=== PATIENT | female | born 1970 | race Caucasian/White ===

== ENCOUNTER 2024-05-15 18:02 | Emergency (ER) | payer BC, SELFPAY ==
[2024-05-15 18:25] VITALS: BP 194/58; PULSE 59; RESP 20; TEMP 36.6; O2SAT 86
[2024-05-15 18:40] VITALS: RESP 20; O2SAT 97
--- NOTE | 2024-05-15 19:06 | ED.EYEPROB ---
HPI - Eye Problem General Chief complaint: Eye Problems Stated complaint: Fall Injury, Eye Pain Time Seen by Provider: 05/15/24 18:50 Source: patient, family and RN notes reviewed Mode of arrival: ambulatory Limitations: no limitations History of Present Illness HPI Narrative: Patient presents today complaining an injury to her left eye. She fell asleep sitting up in her bed this morning around 11:00 a.m., fell off her bed onto the floor. Her left eye struck her left hand on the ground giving her a black eye. Patient reports the left eye is a little blurry, but otherwise she is having no symptoms. Denies pain to the face RI, headache, dizziness, neck pain. History of COPD and states she typically wears oxygen occasionally at home, but always at night. Upon arrival her O2 on room air was 86% because she for got her oxygen. She was placed on nasal cannula at 2 L and her pulse ox came up to 97 %. Related Data Home Medications Medication Instructions Recorded Confirmed albuterol sulfate 90 mcg/actuation 2 puff inhalation QID PRN sob 05/15/24 05/15/24 aerosol inhaler atorvastatin 40 mg tablet 40 mg PO DAILY 05/15/24 05/15/24 bumetanide 2 mg tablet 2 mg PO DAILY 05/15/24 05/15/24 carvedilol 6.25 mg tablet 6.25 mg PO DAILY 05/15/24 05/15/24 folic acid 1 mg tablet 1 mg PO DAILY 05/15/24 05/15/24 levothyroxine 175 mcg tablet 175 mcg PO DAILY 05/15/24 05/15/24 (Synthroid) lisinopril 20 mg tablet 20 mg PO DAILY 05/15/24 05/15/24 metolazone 5 mg tablet 5 mg PO DAILY 05/15/24 05/15/24 Allergies Allergy/AdvReac Type Severity Reaction Status Date / Time azithromycin Allergy Unknown MOUTH Verified 05/15/24 18:04 PEELED codeine Allergy Unknown VOMITING Verified 05/15/24 18:04 Review of Systems Review of Systems: CONSTITUTIONAL: Denies body aches, fever, chills, or sweats. EYES: + left eye bruising, left orbit bruising, left eye with mild blurriness ENT: Denies rhinorrhea, congestion, sore throat, or otalgia. CARDIOVASCULAR: Denies chest pain, palpitations, or edema. RESPIRATORY: Denies cough or dyspnea. GASTROINTESTINAL: Denies abdominal pain, nausea, vomiting, or diarrhea. GENITOURINARY: Denies dysuria or hematuria. SKIN: Denies rash, itching, or wounds. MUSCULOSKELETAL: Denies back pain, joint pain, or myalgia. NEUROLOGIC: Denies headache, numbness, tingling, or weakness. PSYCH: Denies depression or anxiety. [facility] Past Medical History Medical History (Updated 05/15/24 @ 19:14 by Trista Ramesh, [employer], ) COPD (chronic obstructive pulmonary disease) Comments At time of signature, I have reviewed and agree with nursing past medical, surgical, social and family history unless otherwise noted. Please see nursing chart for further information. There is no relevant family history pertinent to the presenting complaint Exam Narrative: GENERAL: chronically ill-appearing, well-nourished, and in no acute distress. HEAD: Normocephalic, atraumatic. EYES: EOMI. PERRL. Left eye: Severe left subconjunctival hemorrhage. Dependent edema and ecchymosis below the left eye. No orbital tenderness. No nystagmus. ENT: Mucous membranes pink and moist. Nares clear. No rhinorrhea. TMs normal bilaterally. Throat normal. Uvula midline. NECK: Normal AROM. Supple. No lymphadenopathy. Neck nontender. CHEST: on O2 2LNC EXTREMITIES: Normal range of motion. No edema. SKIN: Warm, dry, no rash. Capillary refill normal. Normal skin turgor. NEURO: No focal deficits. Alert and oriented x3. Gait steady. PSYCH: Normal affect. No signs of depression or anxiety. Course Course Level of Care: Express Care Visit Vital Signs Vital signs: Vital Signs Temperature 98 F 05/15/24 18:25 Pulse Rate 59 L 05/15/24 18:25 Respiratory Rate 20 05/15/24 18:25 Blood Pressure 194/58 H 05/15/24 18:25 Pulse Oximetry 86 L 05/15/24 18:25 Oxygen Delivery Room Air 05/15/24 18:25 Temperature 98 F 05/15/24 18:25 Pulse R
== END 2024-05-15 19:14 | disposition short-term general hospital (02) ==
PROVIDERS: Emergency Provider Nurse Practitioner; PCP Family Medicine
DX: H11.32 Conjunctival hemorrhage, left eye (principal); S00.83XA Contusion of other part of head, initial encounter; W06.XXXA Fall from bed, initial encounter; J44.9 Chronic obstructive pulmonary disease, unspecified
CPT/HCPCS: 99212; G0463

== ENCOUNTER 2024-05-15 19:27 | Emergency (ER) | payer BC, SELFPAY ==
--- NOTE | ~2024-05-15 | CT_ITS ---
EXAMINATION: CT orbit BI wo con DATE: 05/15/2024 20:35 INDICATION: Fall . TECHNIQUE: Computed tomography (CT) of the orbital bones was performed without intravenous contrast. Automated exposure control and iterative reconstruction technique were employed. The dose-length prod uct was 214.18 mGy-cm. COMPARISON: None. FINDINGS: Soft Tissues: Left periorbital soft tissue swelling. Facial bones: No acute fracture. No lytic or blastic process. Eyes: The globes are intact. The soft tissue planes of the orbits are maintained. Paranasal Sinuses: Aerated secretions in the left maxillary sinus. The remaining visualized aerated spaces are clear. Foreign Bodies: No radiopaque foreign bodies. Other Findings: None. IMPRESSION: No evidence of acute orbital bone fracture or orbital trauma. Left maxillary sinus aerated secretions may represent acute sinusitis or minimal mucosal hemorrhage. Reviewed, dictated and finalized at [facility]. IMPRESSION: No evidence of acute orbital bone fracture or orbital trauma. Left maxillary sinus aerated secretions may represent acute sinusitis or minima l mucosal hemorrhage.
[2024-05-15 19:31] VITALS: BP 110/92; PULSE 64; RESP 18; TEMP 36.4; O2SAT 87
[2024-05-15 20:49] VITALS: BP 156/64; PULSE 61; RESP 15; O2SAT 92
--- NOTE | 2024-05-15 20:49 | ED.FALL ---
HPI - Fall General Chief Complaint: Fall Stated Complaint: fall, eye injury Time Seen by Provider: 05/15/24 20:11 History of Present Illness HPI Narrative: Patient is a 54-year-old female who presents to the emergency department this evening after being sent in from [facility] due to concern for left eye trauma. Patient fell asleep sitting in a seated position and accidentally fell forward and landed on her left wrist. Patient accidentally hit her left eye with her left hand held in a fisted position. Patient did present to the Urgent Care with a left black. She denies any pain with extraocular movements, denies any decrease in vision and denies any pain. She express care sent patient here for further evaluation including orbital CTs to rule out an orbital fracture. Patient denies any additional symptoms or concerns at this time. No blood thinner use. Related Data Home Medications Medication Instructions Recorded Confirmed albuterol sulfate 90 mcg/actuation 2 puff inhalation QID PRN sob 05/15/24 05/15/24 aerosol inhaler atorvastatin 40 mg tablet 40 mg PO DAILY 05/15/24 05/15/24 bumetanide 2 mg tablet 2 mg PO DAILY 05/15/24 05/15/24 carvedilol 6.25 mg tablet 6.25 mg PO DAILY 05/15/24 05/15/24 folic acid 1 mg tablet 1 mg PO DAILY 05/15/24 05/15/24 levothyroxine 175 mcg tablet 175 mcg PO DAILY 05/15/24 05/15/24 (Synthroid) lisinopril 20 mg tablet 20 mg PO DAILY 05/15/24 05/15/24 metolazone 5 mg tablet 5 mg PO DAILY 05/15/24 05/15/24 Allergies Allergy/AdvReac Type Severity Reaction Status Date / Time azithromycin Allergy Unknown MOUTH Verified 05/15/24 19:41 PEELED codeine Allergy Unknown VOMITING Verified 05/15/24 19:41 Review of Systems Review of Systems: All systems are reviewed and are negative unless stated otherwise in the HPI. [facility] Past Medical History Medical History COPD (chronic obstructive pulmonary disease) Exam Narrative: General: Alert, awake, afebrile, in no acute distress. HEENT: PERRL, no rhinorrhea, no post nasal drip, oropharynx clear, Bruising noted to the left orbital region with ecchymosis, chemosis noted along the lateral and inferior aspect of the left eye, intact extraocular movements without any pain or evidence of muscle entrapment, intact vision. Neck: Trachea midline, no JVD, no lymphadenopathy. Cardiovascular: Regular rate and rhythm, no murmurs, rubs or gallops, no peripheral edema. Respiratory: Clear to auscultation bilaterally, no tachypnea, no wheezing, no rhonchi, no rubs, no respiratory distress. Abdomen: Soft, nontender, nondistended, no rebound, no guarding, no peritoneal signs. Musculoskeletal: No joint swelling or deformity, normal muscle tone. Skin: No rashes or petechia, no signs of infection. Neurological: Alert and oriented to person, place, and time. Follows all commands. No focal deficits, speech is clear and fluent. Course Vital Signs Vital signs: Vital Signs Temperature 97.6 F 05/15/24 19:31 Pulse Rate 64 05/15/24 19:31 Respiratory Rate 18 05/15/24 19:31 Blood Pressure 110/92 H 05/15/24 19:31 Pulse Oximetry 87 L 05/15/24 19:31 Oxygen Delivery Room Air 05/15/24 19:31 Temperature 97.6 F 05/15/24 19:31 Pulse Rate 61 05/15/24 20:49 Respiratory Rate 15 05/15/24 20:49 Blood Pressure 156/64 H 05/15/24 20:49 Pulse Oximetry 92 05/15/24 20:49 Oxygen Delivery Room Air 05/15/24 19:31 MDM - Fall MDM Narrative Medical decision making narrative: The patient was evaluated by myself in the emergency department. History is obtained from patient who is an independent historian and physical exam was performed. External medical records were reviewed at this time. Imaging studies obtained included CT orbits without IV contrast which was independently interpreted by me revealing no acute process, CT did comment on a left maxillary sinus aerated secreti
[2024-05-15 21:07] VITALS: BP 154/72; PULSE 71; RESP 15; O2SAT 100
== END 2024-05-15 21:08 | disposition home or self-care (01) ==
LOC: ANHED 20:56
PROVIDERS: Emergency Provider Emergency Medicine; PCP Family Medicine
DX: S00.12XA Contusion of left eyelid and periocular area, initial encounter (principal); H11.32 Conjunctival hemorrhage, left eye; Z79.899 Other long term (current) drug therapy; J44.9 Chronic obstructive pulmonary disease, unspecified; W06.XXXA Fall from bed, initial encounter
CPT/HCPCS: 70480; 99284

== ENCOUNTER 2024-12-19 21:05 | Inpatient (IN) | payer BC, SELFPAY ==
--- NOTE | ~2024-12-19 | CT_ITS ---
EXAMINATION: CT BRAIN W/O DATE: 12/20/2024 01:59 INDICATION: Confusion. Evaluate for bleed. TECHNIQUE: Computed tomography (CT) of the head was performed without intravenous contrast. The dose- length product was 681.00 mGy-cm. Automated exposure control and iterative reconstruction technique w ere employed. COMPARISON: No prior studies for comparison. FINDINGS: Normal brain parenchymal volume for age. Normal weeks-white differentiation. No acute intrac ranial hemorrhage, infarction, mass or mass effect. No ventriculomegaly or midline shift. Midline sagittal images demonstrate a normal corpus callosum, c raniovertebral junction and sella turcica. Basilar cisterns are patent. Paranasal sinuses and mastoids are pneumatized. No depressed skull fractures. IMPRESSION: 1. No acute intracranial abnormality. Reviewed, dictated and finalized at location A. ING ASSOCIATE
--- NOTE | ~2024-12-19 | XR_ITS ---
EXAMINATION: XR chest 2V Exam Date/Time: 12/19/2024 22:05 SYSTEMS ANALYST ENGINEER HISTORY: cp SINCE 1600 Comparison: 12/21/2017. RESULT: Lines, tubes, and devices: None. Lungs and pleura: Mild peripheral reticular opacities and indistinct vessels. Hemidiaphragm flatteni ng as can be seen with emphysematous change. Cardiomediastinal silhouette: Stable cardiomegaly. Other: No acute osseous or upper abdominal finding. IMPRESSION: Mild interstitial edema. Reviewed, dictated and finalized at location K. EMS ANALYST ENGINEER IMPRESSION: Mild interstitial edema.
--- OUTSIDE RECORDS SUMMARY | 2024-12-19 21:07 | XMS_ITS | Data Portability ---
Author Organization [place] - [facility] OFFICE Address [address] [place] [address] Care Team Providers Care Unit Control Clerk Name Role Phone TAY TONG Primary Care Provider TAY TONG Referring Provider [phone] Assessment Encounter Date Assessment Date Assessment LastModified by Organization Details LastModified Time 11/02/2017 11/02/2017 Discussed with patient findings, diagnosis, and prognosis. Discussed evaluation and treatment options including risks and benefits with patient, and patient expressed understanding. The following interventions were recommended: heart healthy low-fat, low-sodium diet, avoid strenuous exercise pending completion of cardiovascular evaluation, 20 pound weight loss, monitor and record daily weight, continue current medications, and medical follow-up as noted. [email or web address] Not available 11/02/2017 10:56:00 12/21/2017 12/21/2017 Discussed with patient findings, diagnosis, and prognosis. Discussed evaluation and treatment options including risks and benefits with patient, and patient expressed understanding. The following interventions were recommended: heart healthy low-fat, low-sodium diet, continue regular exercise, 20 pound weight loss, monitor and record daily weight, continue current medications, and medical follow-up as noted. [email or web address] Not available 12/21/2017 15:19:32 Plan of Treatment Reminders Order Date Submit Date Provider Last Modified By Organization Details Last Modified Time Details Appointments None record ed. Lab None record ed. Referral None record ed. Procedures None record ed. Surgeries None record ed. Imaging None record ed. Medication Orders None record ed. Patient TargetsNo targets recorded. Patient Instructions Encounter Date Encounter Id Patient Instructions Last Modified By Organization Details Last Modified Time 11/02/2017 [id number] When You Want to Lose Weight: Care Instructions Not available 11/02/2017 11:46:23 deciding about using medicines to quit smoking Not available 11/02/2017 11:46:22 Quitting Tobacco : Care Instructions Not available 11/02/2017 11:46:22 elevated blood pressure: care instructions Not available 11/02/2017 11:46:22 hypothyroidism: care instructions Not available 11/02/2017 11:46:22 aortic valve regurgitation: care instructions Not available 11/02/2017 11:46:22 12/21/2017 [id number] When You Want to Lose Weight: Care Instructions [email or web address] Not available 12/21/2017 15:22:56 deciding about using medicines to quit smoking [email or web address] Not available 12/21/2017 15:22:57 Quitting Tobacco : Care Instructions [email or web address] Not available 12/21/2017 15:22:56 elevated blood pressure: care instructions Not available 12/21/2017 15:22:56 hypothyroidism: care instructions Not available 12/21/2017 15:22:56 aortic valve regurgitation: care instructions [email or web address] Not available 12/21/2017 15:22:56 Reason for Referral None Reported. Results Created Date Observation Date Name Description Value Unit Range Abnormal Flag Note LastModifiedBy Organization Detail LastModifiedTime 11/03/20 17 elect rocar diogr am No observ ation record ed. Not Available 2016 12:22:21 11/17/20 17 11/15/2017 US, echoc ardio gram, trans thora cic, compl ete, w/ color flow No observ ation record ed. [facility] [address], [place], [address], 11/29/2017 12:57:26 Result Notes None recorded. Problems Name Problem SNOMED Code Status Onset Date Resolution Date Notes Provider Name and Address Organization Details Recorded Time Hypothyroidism 84814310 Active 2016 JUSTO Hodge [facility] 7 10:41:30 Osteoarthritis 383384224 Active 2016 JUSTO Hodge [facility] 7 10:41:36 Vitamin D deficiency 19353051 Active 2016 Jeffrey knapp [facility] 7 10:43:27 History of tubal ligation 172542157 Active 2016 [facility] 7 10:44:00 Chronic sinusitis 73216510 Active 2016 [facility] 7 10:44:14 Solitary nodule of lung 781884935 Active 2016 [facility] 7 10:44:39 Fatigue 17727428 Active 2016 [facility] 7 11:27:36 History of multiple allergies 021183639 Active 2016 Eddyconcepción [facility] 7 11:28:14 Tobacco dependence syndrome 80419261 Active 2016 [facility] 7 10:43:43 Aortic valve regurgitation 43454039 Active 2016 [facility] 7 10:45:59 Increased blood pressure 29715135 Active 2016 [facility] 7 10:52:43 Obesity 973943563 Active 2016 Bandar knapp [facility] 7 10:53:16 Dyspnea on exertion 00655747 Active 2017 Bandar knapp [facility] 8 15:06:30 Problem Notes None recorded. Procedures Surgical History Date Name Laterality Status Provider Name and Address Organization Details Recorded Time Knee arthroscopy/sara ebenezer [facility] 10/26/2017 10:45:09 Unlisted px accessory sinus completed Murphy [facility] 10/26/2017 10:45:26 Anesth tubal ligation completed Murphy [facility] 10/26/2017 10:45:47 Imaging Results Imaging Date Name Status LastModified by Organization Details LastModified Time 11/03/2017 electrocardiogram completed Informa tion not available 11/03/2017 12:22:21 11/15/2017 US, echocardiogram, transthoracic, complete, w/ color flow completed [facility] [address], [place], [address], 11/29/2017 12:57:26 Procedure Notes None recorded. Medical Equipment None Reported. Allergies Allergen ID Allergen Name Allergen Category Reaction Reaction Severity Criticality Documentation Date Start Date Code Code System Note Provider Name and Address Organization Details Recorded Time 4 codeine medicatio n Not available Not available Not available 10/26/2017 2670 RxNorm Murphy Mesto null, [facility] 7 10:47:44 5555 acetamino phen / hydrocodo ne medicatio n Not available Not available Not available 10/26/2017 74269 2 RxNorm Murphy Mesto null, [facility] 7 10:47:53 5556 Zithromax medicatio n Not available Not available Not available 10/26/2017 62075 4 RxNorm Murphy Mesto null, [facility] 7 10:48:01 Medications Name Sig Start Date Stop Date Status Note LastModified by Organization Details LastModified Time amoxicilli n 500 mg capsule 11/02 completed Not Available Not Available Not Available prednisone 10 mg tablet Take every day by oral route. 11/02 completed Not Available Not Available Not Available doxycyclin e hyclate 100 mg capsule 12/21 completed no longer taking 018 ab Not Available Not Available Not Available ibuprofen 800 mg tablet Take 2 tablets as needed by oral route. active prn Not Available Not Available No t Available benzonatat e 200 mg capsule 12/21 completed no longer taking 018 ab Not Available Not Available Not Available Claritin 10 mg tablet Take 1 tablet every day by oral route. 2016 active Not Available Not Available Not Avai lable prednisone 20 mg tablet active Not Available Not Available Not Available Zithromax 250 mg tablet TAKE 2 TABLETS (500 MG) BY ORAL ROUTE ONCE DAILY FOR 1 DAY THEN 1 TABLET (250 MG) BY ORAL ROUTE ONCE DAILY FOR 4 DAYS 11/02 completed Not Available Not Available Not Available Synthroid 175 mcg tablet Take 1 tablet every day by oral route. active Not Available Not Available No t Available benzonatat e 100 mg capsule 11/02 completed Not Available Not Available Not Available montelukas t 10 mg tablet Take 1 tablet every day by oral route. active Not Available Not Available No t Available levofloxac in 500 mg tablet 12/21 completed no longer taking 018 ab Not Available Not Available Not Available ipratropiu m bromide 42 mcg (0.06 %) nasal spray 12/21 completed no longer taking 018 ab Not Available Not Available Not Available cefdinir 300 mg capsule active Not Available Not Available Not Available amoxicilli n 875 mg-potassi um clavulanat e 125 mg tablet 12/21 completed no longer taking 018 ab Not Available Not Available Not Available Mucinex 600 mg tablet, extended release Take 1 tablet every 12 hours by oral route. 11/02 completed Not Available Not Available Not Available amoxicilli n-potassiu m clavulanat e 1,000 mg-62.5 mg tablet,ext .rel 12hr 12/21 completed no longer taking 018 ab Not Available Not Available Not Available Vitals Date Recorded Body weight Body mass index (BMI) Body height Heart rate Oxygen saturation Oxygen saturation in Arterial blood by Pulse oximetry Systolic blood pressure Diastolic blood pressure Provider Name and Address Organization Details Last Updated DateTime 7 15775.2 7 g 33.9 kg/m2 163.83 cm 71 /min 94 % 94 % 142 mm[Hg] 70 mm[Hg] Albertina Krystian [facility] 7 10:09:01 Date Recorded Body height Body mass index (BMI) Body weight Heart rate Oxygen saturation Oxygen saturation in Arterial blood by Pulse oximetry Systolic blood pressure Diastolic blood pressure Provider Name and Address Organization Details Last Updated DateTime 8 163.83 cm 33.8 kg/m2 53884.4 7 g 72 /min 95 % 95 % 142 mm[Hg] 65 mm[Hg] Donita Valenzuela [facility] 8 14:18:46 Social History Question Answer Notes LastModified by Organizat ion Details LastModified Time Tobacco Smoking Status Current Every Day Smoker Not Available [facility] 09/22/2020 03:30:41 What Is Your Level Of Alcohol Consumption? None [id number] Information not available 09/22/2020 Which Illicit Or Recreational Drugs Have You Used? None [id number] Information not available 09/22/2020 Marital Status hi Wagner n not available 11/02/2017 What Was The Date Of Your Most Recent Tobacco Screening? 11/02/2017 [id number] Information not available 09/22/2020 How Many Years Have You Smoked Tobacco? 20 [id number] Information not available 09/22/2020 Sex: Unknown Functional Status None recorded. Mental Status None recorded. Family History Relationship Description Onset Age of this Age Resolved Age Notes LastModified by Organization Details LastModified Time Father Father [email or web address] Not available 2016 10:46:38 Notes:ppm, pancreatic cancer Medical History Condition Response Valvular Heart Disease Y Thyroid Disease Y Gynecological HistoryNo gynecological history recorded. Obstetrics History GPAL:G 0 P 0 0 0 0 Past Encounters Encounter ID Performer Location Encounter Start Date Encounter Closed Date Diagnosis/Indication Diagnosis SNOMED-CT Code Diagnosis ICD10 Code Diagnosis Note [id number] [facility] [address] [place] [address] 11/02/2017 09:47:32 11/06/2017 12:43:21 Hypothyroidism 51910298 E03.9 On Synthroid. Obtain FLP. Fatigue 48896437 R53.83 Obtain CBC, BMP, Mg, TSH. Has history of elevated wbc and prior bone marrow biopsy at [facility]. Consider stress test pending echo. Tobacco de pendence syndrome 35398912 F17.200 Cessation recommende d. Aortic jenny ve regurgitation 04054772 I35.1 Chronic. Obtain echo to evaluate for structural /functiona l disease, extent of AI. Obtain [facility] records from 10 years ago: LHC, NANCY, chemical stress test. Increased blood pressure 81369801 R03.0 Blood pressure is elevated today, but this is only one reading, will keep close follow up, and consider medication change if blood pressure is still elevated next visit. BP diary. Obesity 689706175 E66.9 20 lb. weight loss recommende d over the next 2 months. [facility] [address] [place] [address] 12/21/2017 14:05:43 12/21/2017 16:36:30 Aortic valve regurgitation 30834704 I35.1 Chronic. Moderate aortic regurgitat ion on echo 11/15/17. Had 11/15/17 ECHO: LV chamber size is normal. Mildly increased LV wall thickness. There is normal global systolic function and contractil ity. LVEF 50-55%. Impaired relaxation . Moderate aortic regurgitat ion. Obtain [facility] records from 10 years ago: LHC, NANCY, chemical stress test. Hypothyroidism 31775512 E03.9 On Synthroid. Obtain FLP. Fatigue 82359736 R53.83 Obtain CBC, BMP, Mg, TSH. Has history of elevated wbc and prior bone marrow biopsy at [facility]; follows with PCP. Tobacco de pendence syndrome 15045752 F17.200 Cessation recommende d. Increased blood pressure 38742153 R03.0 Blood pressure is elevated today and on prior visit but home BP well-contr olled; will keep close follow up, and consider medication change if blood pressure is still elevated next visit. BP diary. Validate home BP monitor in office. Obesity 597775860 E66.9 20 lb. weight loss recommende d over the next 2 months. Dyspnea on exertion 6084 5006 R06.09 Patient presents with exertional dyspnea which can be an anginal equivalent and fatigue in the months even before recent pneumonia. Given the history, exam findings and {{high* in termediate low}} cardiac risk factors, I {{feel* do not feel}} additional investigat ion is warranted. I have made arrangemen ts in the near future for {{an exercise stress echocardio gram to evaluate for any ischemia, structural heart disease, or exercise induced arrythmia an exercise stress nuclear test an exercise stress nuclear test (stress echo not possible due to COPD or obesity) a n exercise stress nuclear test and an echocardio gram to evaluate for any ischemia or structural heart disease a pharmacolo gic stress nuclear test due to reduced functional capacity or conduction abnormalit y* cardiac catheteriz ation an echocardio gram to evaluate left ventricula r function and any structural heart disease or valvular abnormalit y}}. Has knee OA limiting rapid walking. Wait until early January 2018 for complete resolution of recent pneumonia. The procedure was discussed with the patient, and risks, benefits, and alternativ e options were explained. {{ The patient was informed about heart catheteriz ation and interventi onal procedures and agrees to proceed.}} Appropriat e labwork {{has has not*}} been performed recently, therefore I {{have not have*} } made arrangemen ts for further testing. I have asked the patient to curtail exercise and activities until our investigat ion is complete. I have {{made no* made the following} } adjustment s to the present medical regimen. {{ Patient has been started on daily aspirin.}} {{ Patient has been given a prescripti on for sublingual nitroglyce rin.}} Health Concerns Section Related Observation LastModified by Organization Detai ls LastModified Time None Recorded Concern Status LastModified by Organization Details LastModified Time None Recorded Advance Directives Directive None Recorded Payers Encounter Date Sequence Insurance Name Policy Number Policy Bhandari Covered Member ID Bhandari Member ID Guarantor Name 11/02/2017 1 [place] [id number] Karlie Cody [id number] Karlie Cody 12/21/2017 1 [place] [id number] Karlie Cody [id number] Karlie Cody Notes Date Note Type Note Provider Name and Address Organization Details Recorded Time 11/02/2017 text/html 11/02/17 CC: Cardiac Evaluation 47 year-old white woman with h/o Aortic valvular regurgitation, current tobacco use (40 pack-year), hypothyroidism was referred for cardiac evaluation due to progressive heart murmur. No recent echo. No history of endocarditis. Pt reports she had cardiac testing at [facility] in [place] approximately 10 years ago, tests included a NANCY, Chemical Stress test, and a Cardiac Catherization. {{No history of previous myocardial infarction.* History of previous myocardial infarction reported.}} {{No history of heart failure.* History of heart failure reported.}} {{History of valvular heart disease reported: AI.# No known valvular heart disease. History of valvular heart disease reported.}} Pt reports she was told by at [facility] in [place], [place] she had an aortic valve disease. {{No known arrhythmia.* History of arrhythmia reported.}} {{Patient reports feeling well overall.* Patient reports not feeling well sometimes.}} {{Patient is active, but is not exercising regularly.* Patient is active, exercising regularly. Patient is not very active, and is not exercising.}} {{No chest pain.* Chest pain reported. Exertional chest pain reported. Non-exerti onal chest pain reported. Chest pain reported which is only sometimes associated with activity.}} {{No arm pain.* Arm pain reported.}} {{No neck pain.* Neck pain reported.}} {{No nausea and vomiting.* Nausea and vomiting reported.}} {{No diaphoresis.* Diapho resis reported.}} {{No shortness of breath at rest.* Shortness of breath at rest reported.}} {{Dyspnea on exertion reported with sinus infections.# No dyspnea on exertion. Dyspnea on exertion reported.}} {{No fatigue. Fatigue reported.*}}{{No orthopnea.* Orthopne a reported.}} {{No PND.* PND reported.}} {{No leg swelling.* Leg swelling reported.}} {{No palpitation. Palpita tion reported.*}} {{No dizziness.* Dizzines s reported.}} {{No syncope .* Syncope reported.}} {{No pre-syncope.* Pre-sy ncope reported.}} {{No claudication.* Monty ication reported.}} {{No major bleeding events.* Major bleeding event reported.}} {{No side effects from medications.* Side effects from medications reported.}} {{Complete ROS negative except as stated in the HPI. Complete ROS negative except as stated in the HPI and ROS.*}} Results from this visit, or from the past: EK11/02/[address] depression. + Negative precordial T waves. Nondiagnostic. Abnormal. Bandar knapp [place] [facility] 11/27/2017 08:39:18 12/21/2017 text/html 12/21/17 CC: Follow-up Cardiac Evaluation 47 year-old white woman with h/o aortic valvular regurgitation, current tobacco use (40 pack-year), hypothyroidism was referred for cardiac evaluation due to progressive heart murmur. Patient presents today for follow-up. Pt reports she has pneumonia for 3.5 weeks and is having a f/u chest x-ray today after this appointment. Patient was on antibiotics, prednisone and inhalers. Pt was to get FLP, did not obtain due to being ill with pneumonia. No history of endocarditis. Pt reports she had cardiac testing at [facility] in [place] approximately 10 years ago, tests included a NANCY, Chemical Stress test, and a Cardiac Catherization. {{No history of previous myocardial infarction.* History of previous myocardial infarction reported.}} {{No history of heart failure.* History of heart failure reported.}} {{History of valvular heart disease reported: AI.# No known valvular heart disease. History of valvular heart disease reported.}} Pt reports she was told by at [facility] in [place], [place] she had an aortic valve disease. {{No known arrhythmia.* History of arrhythmia reported.}} {{Patient reports feeling well overall. Patient reports not feeling well sometimes.*}} Pt recently has pneumonia, is feeling better than when she was diagnosed two weeks ago. {{Patient is active, but is not exercising regularly. Patient is active, exercising regularly. Patient is not very active, and is not exercising.*}} Since pneumonia diagnosis. 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 {{No chest pain.* Chest pain reported. Exertional chest pain reported. Non-exerti onal chest pain reported. Chest pain reported which is only sometimes associated with activity.}} {{No arm pain.* Arm pain reported.}} {{No neck pain.* Neck pain reported.}} {{No nausea and vomiting.* Nausea and vomiting reported.}} {{No diaphoresis.* Diapho resis reported.}} {{No shortness of breath at rest.* Shortness of breath at rest reported.}} {{No dyspnea on exertion. Dyspnea on exertion reported.*}} {{No fatigue. Fatigue reported.*}}{{No orthopnea.* Orthopne a reported.}} {{No PND.* PND reported.}} {{No leg swelling.* Leg swelling reported.}} {{No palpitation. Palpita tion reported.*}} {{No dizziness.* Dizzines s reported.}} {{No syncope .* Syncope reported.}} {{No pre-syncope.* Pre-sy ncope reported.}} {{No claudication.* Monty ication reported.}} {{No major bleeding events.* Major bleeding event reported.}} {{No side effects from medications.* Side effects from medications reported.}} {{Complete ROS negative except as stated in the HPI. Complete ROS negative except as stated in the HPI and ROS.*}} Had 11/15/17 ECHO: LV chamber size is normal. Mildly increased LV wall thickness. There is normal global systolic function and contractility. LVEF 50-55%. Impaired relaxation. Moderate aortic regurgitation. Had BP diary 110-125/ 70-80. Results from this visit, or from the past: EK11/02/[address] depression. + Negative precordial T waves. Nondiagnostic. Abnormal. 11/15/17 ECHO: LV chamber size is normal. Mildly increased LV wall thickness. There is normal global systolic function and contractility. LVEF 50-55%. Impaired relaxation. Moderate aortic regurgitation. Bandar knapp [place] [facility] 12/21/2017 15:23:19 OBGyn Episode No OBEpisode recorded.
--- OUTSIDE RECORDS SUMMARY | 2024-12-19 21:07 | XMS_ITS | Data Portability ---
Author Organization [facility] Address [address] [place] [address] Care Team Providers Care Assistant Chief Of Police Name Role Phone RIZWANA HERRING Primary Care Provider Unavailabl e Assessment No assessment recorded. Plan of Treatment Reminders Order Date Submit Date Provider Last Modified By Organization Details Last Modified Time Details Appointments None recorded . Lab CK (creatin e kinase) isoenzym es, serum 2023 024 [facility], [address], [place], [address], 4 11:38:10 erythroc yte sediment ation rate by alexanderr en method 2023 024 [facility], [address], [place], [address], 4 09:09:03 CBC w/ auto diff 2023 024 [facility], [address], [place], [address], 4 18:53:48 BMP, serum or plasma 2023 024 [facility], [address], [place], [address], 4 07:48:02 pro BNP (pro B-type natriure tic peptide) , serum or plasma 2023 024 [facility], [address], [place], [address], 4 11:34:49 BMP, serum or plasma 2023 024 [facility], [address], [place], [address], 4 09:15:56 pro BNP (pro B-type natriure tic peptide) , serum or plasma 2023 024 [email or web address] [facility], [address], [place], [address], 4 16:55:58 CBC w/ auto diff 2023 024 [email or web address] [facility], [address], [place], [address], 4 16:55:58 hepatic function panel, serum 2023 024 [email or web address] [facility], [address], [place], [address], 4 11:13:06 pro BNP (pro B-type natriure tic peptide) , serum or plasma 2023 024 [email or web address] [facility], [address], [place], [address], 4 12:48:50 CBC 2023 024 [id number] [facility], [address], [place], [address], 4 12:48:43 BMP, serum or plasma 2023 024 [facility], [address], [place], [address], 4 23:28:16 TSH + free T4, serum 2023 024 [facility], [address], [place], [address], 4 08:15:14 hepatic function panel, serum 2023 024 [id number] [facility], [address], [place], [address], 4 12:48:31 Referral cardiolo gist referral 2023 [place] [facility], [address], [address], [place], [address], 4 15:01:09 Procedures trans-th oracic echocard iogram (TTE) (PROC) 2023 [facility], [address], [address], [place], [address], 5 05:19:58 Surgeries None recorded . Imaging None recorded . Medication Orders rosuvast atin 20 mg tablet 2023 024 [id number], [address], [place], [place], [id number], 4 13:42:03 Lasix 40 mg tablet 2023 024 [id number], [address], [place], [id number], 4 13:40:47 mupiroci n 2 % topical ointment [address] [id number], [address], [place], [place], [id number], 4 13:37:20 gabapent in 100 mg capsule [address] [facility], [address] [place] [address], [place], [address], 4 15:18:41 carvedil ol 3.125 mg tablet [address] [facility], [address] [facility], [place], [address], 15:18:41 Patient TargetsNo targets recorded. 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 Total CK is below adequ ate level to accur ately fract ionat e. Not Available [address], [address], 07/08/2024 09:09:01 07/02/2007/08/2024 SODIU M sodium 130 mmol/ L 135-14 6 low Not Available [address], [address], 07/08/2024 09:09:02 07/02/2007/08/2024 SED RATE BY JENNIFER BUSTAMANTE sed rate by modified preston 2 mm/h < or = 30 normal Not Available [address], [address], 07/08/2024 09:09:03 07/19/20 24 07/19/2024 CBC (INCL UDES DIFF/ PLT) white blood cell count 12.3 thous and/u L 3.8-10 .8 high Not Available [facility] [address], [address], 07/19/2024 18:53:47 07/19/20 24 07/19/2024 CBC (INCL UDES DIFF/ PLT) red blood cell count 5.68 sheri on/uL 3.80-5 .10 high Not Available [facility] [address], [address], 07/19/2024 18:53:47 07/19/20 24 07/19/2024 CBC (INCL UDES DIFF/ PLT) hemoglobin 14.6 g/dL 11.7-1 5.5 normal Not Available [address], [address], 07/19/2024 18:53:47 07/19/20 24 07/19/2024 CBC (INCL UDES DIFF/ PLT) hematocrit 49.5 % 35.0-4 5.0 high Not Available [employer] [address], [address], 07/19/2024 18:53:47 07/19/20 24 07/19/2024 CBC (INCL UDES DIFF/ PLT) MCV 87.1 fL 80.0-1 00.0 normal Not Available [facility] [address], [address], 07/19/2024 18:53:47 07/19/20 24 07/19/2024 CBC (INCL UDES DIFF/ PLT) MCH 25.7 pg 27.0-3 3.0 low Not Available [facility] [address], [address], 07/19/2024 18:53:47 07/19/20 24 07/19/2024 CBC (INCL UDES DIFF/ PLT) MCHC 29.5 g/dL 32.0-3 6.0 low Not Available [address], [address], 07/19/2024 18:53:47 07/19/20 24 07/19/2024 CBC (INCL UDES DIFF/ PLT) RDW 14.1 % 11.0-1 5.0 normal Not Available [address], [address], 07/19/2024 18:53:47 07/19/20 24 07/19/2024 CBC (INCL UDES DIFF/ PLT) platelet count 320 thous and/u L 140-40 0 normal Not Available [facility] [address], [address], 07/19/2024 18:53:47 07/19/20 24 07/19/2024 CBC (INCL UDES DIFF/ PLT) MPV 9.5 fL 7.5-12 .5 normal Not Available [address], [address], 07/19/2024 18:53:47 07/19/20 24 07/19/2024 CBC (INCL UDES DIFF/ PLT) absolute neutrophils 8389 cells /uL 1500-7 800 high Not Available [address], [address], 07/19/2024 18:53:47 07/19/20 24 07/19/2024 CBC (INCL UDES DIFF/ PLT) absolute lymphocytes 2657 cells /uL 850-39 00 normal Not Available [facility] [address], [address], 07/19/2024 18:53:47 07/19/20 24 07/19/2024 CBC (INCL UDES DIFF/ PLT) absolute monocytes 836 cells /uL 200-95 0 normal Not Available [address], [address], 07/19/2024 18:53:47 07/19/20 24 07/19/2024 CBC (INCL UDES DIFF/ PLT) absolute eosinophils 332 cells /uL 15-500 normal Not Available [address], [address], 07/19/2024 18:53:47 07/19/20 24 07/19/2024 CBC (INCL UDES DIFF/ PLT) absolute basophils 86 cells /uL 0-200 normal Not Available [facility] [address], [address], 07/19/2024 18:53:47 07/19/20 24 07/19/2024 CBC (INCL UDES DIFF/ PLT) neutrophils 68.2 % normal Not Available [address], [address], 07/19/2024 18:53:47 07/19/20 24 07/19/2024 CBC (INCL UDES DIFF/ PLT) lymphocytes 21.6 % normal Not Available [facility] [address], [address], 07/19/2024 18:53:47 07/19/20 24 07/19/2024 CBC (INCL UDES DIFF/ PLT) monocytes 6.8 % normal Not Available [facility] [address], [address], 07/19/2024 18:53:47 07/19/20 24 07/19/2024 CBC (INCL UDES DIFF/ PLT) eosinophils 2.7 % normal Not Available [facility] [address], [address], 07/19/2024 18:53:47 07/19/20 24 07/19/2024 CBC (INCL UDES DIFF/ PLT) basophils 0.7 % normal Not Available [facility] [address] [address] [place], [address], 07/19/2024 18:53:47 07/19/20 24 07/20/2024 B TYPE NATRI URETI C PEPTI DE (BNP) B type natriuretic peptide (BNP) 375 pg/mL <100 high BNP level s incre ase with age in the gener al popul ation with the highe st value s seen in indiv idual s great er than 75 years of age. Refer ence: J. Am. Jonathon. Cardi ol. 2002; 40:97 6-[address] to have a dupli hayley copy faxed has been tim ram[place]: [phone] Not Available [facility] [address] [address] [place], [address], 07/20/2024 11:34:49 08/12/2008/13/2024 SODIU M sodium 115 mmol/ L 135-14 6 critical low Verif ied by repea t alena sis. Not Available [facility] [address] [place], [address], 08/13/2024 04:51:54 08/12/2008/13/2024 BASIC METAB OLIC PANEL glucose 146 mg/dL 65-99 high Fasti ng refer ence inter jenny For someo ne witho ut known diabe cole, a gluco se value >125 mg/dL indic ates that they may have diabe cole and this shoul d be confi rmed with a follo w-up test. Not Available [facility] [address] [address] [place], [address], 08/13/2024 07:48:02 08/12/2008/13/2024 BASIC METAB OLIC PANEL urea nitrogen (BUN) 32 mg/dL 7-25 high Not Available [facility] [address] [address] [place], [address], 08/13/2024 07:48:02 08/12/2008/13/2024 BASIC METAB OLIC PANEL creatinine 1.03 mg/dL 0.50-1 .03 normal Not Available [facility] [address] [place], [address], 08/13/2024 07:48:02 08/12/2008/13/2024 BASIC METAB OLIC PANEL eGFR 64 mL/mi n/1.7 3m2 > or = 60 normal Not Available [address], [address], 08/13/2024 07:48:02 08/12/2008/13/2024 BASIC METAB OLIC PANEL BUN/creatini ne ratio 31 (calc ) 6-22 high Not Available [address], [address], 08/13/2024 07:48:02 08/12/2008/13/2024 BASIC METAB OLIC PANEL sodium 118 mmol/ L 135-14 6 low Not Available [address], [address], 08/13/2024 07:48:02 08/12/2008/13/2024 BASIC METAB OLIC PANEL potassium 3.4 mmol/ L 3.5-5. 3 low Not Available [address], [address], 08/13/2024 07:48:02 08/12/2008/13/2024 BASIC METAB OLIC PANEL chloride <80 mmol/ L 98-110 low Not Available [address], [address], 08/13/2024 07:48:02 08/12/2008/13/2024 BASIC METAB OLIC PANEL carbon dioxide 42 mmol/ L 20-32 high Not Available [address], [address], 08/13/2024 07:48:02 08/12/2008/13/2024 BASIC METAB OLIC PANEL calcium 9.3 mg/dL 8.6-10 .[address] to have a BarBird hayley copy faxed has been tim romeroedg [place]: [phone] Not Available [facility] [address] [place], [address], 08/13/2024 07:48:02 10/30/20 24 10/30/2024 COMPL ETE BLOOD COUNT AUTO DIFF white blood count 9.6 x10e3 /uL 3.4-10 .8 normal Not Available [facility] ([facility]) [address], [place], [address], 10/30/2024 21:33:28 10/30/20 24 10/30/2024 COMPL ETE BLOOD COUNT AUTO DIFF red blood count 5.37 x10e6 /uL 3.77-5 .28 high Not Available [facility] ([facility]) [address], [place], [address], 10/30/2024 21:33:28 10/30/20 24 10/30/2024 COMPL ETE BLOOD COUNT AUTO DIFF hemoglobin 13.4 g/dL 11.1-1 5.9 normal Not Available [facility] ([facility]) [address], [place], [address], 10/30/2024 21:33:28 10/30/20 24 10/30/2024 COMPL ETE BLOOD COUNT AUTO DIFF hematocrit 43.8 % 34.0-4 6.6 normal Not Available [facility] ([facility]) [address], [place], [address], 10/30/2024 21:33:28 10/30/20 24 10/30/2024 COMPL ETE BLOOD COUNT AUTO DIFF mean corpuscular volume 82 fL 79-97 normal Not Available [facility] ([facility]) [address] [place], [address], 10/30/2024 21:33:28 10/30/20 24 10/30/2024 COMPL ETE BLOOD COUNT AUTO DIFF mean corpuscular hemoglobin 25.0 pg 26.6-3 3.0 low Not Available [facility] ([facility]) [address] [place], [address], 10/30/2024 21:33:28 10/30/20 24 10/30/2024 COMPL ETE BLOOD COUNT AUTO DIFF mean corpuscular HGB conc 30.6 g/dL 31.5-3 5.7 low Not Available [facility] (Lab) [address] [place], [address], 10/30/2024 21:33:28 10/30/20 24 10/30/2024 COMPL ETE BLOOD COUNT AUTO DIFF red cell distribution width 20.6 % 11.5-1 4.5 high Not Available [facility] (Lab) [address] [place], [address], 10/30/2024 21:33:28 10/30/20 24 10/30/2024 COMPL ETE BLOOD COUNT AUTO DIFF platelet count 279 x10e3 /uL 150-45 0 normal Not Available [facility] (Lab) [address] [place], [address], 10/30/2024 21:33:28 10/30/20 24 10/30/2024 COMPL ETE BLOOD COUNT AUTO DIFF mean platelet volume 10.0 fL 8.9-12 .7 normal Not Available [facility] ([facility]) [address] [facility], [place], [address], 10/30/2024 21:33:28 10/30/20 24 10/30/2024 COMPL ETE BLOOD COUNT AUTO DIFF immature granulocytes pct auto 0.4 % not estb. Not Available [facility] (Lab) [address] [place], [address], 10/30/2024 21:33:28 10/30/20 24 10/30/2024 COMPL ETE BLOOD COUNT AUTO DIFF neutrophils percent auto 69 % not estb. Not Available [facility] ([facility]) [address] [place], [address], 10/30/2024 21:33:28 10/30/20 24 10/30/2024 COMPL ETE BLOOD COUNT AUTO DIFF lymphocytes percent auto 21 % not estb. Not Available [facility] ([facility]) [address], [place], [address], 10/30/2024 21:33:28 10/30/20 24 10/30/2024 COMPL ETE BLOOD COUNT AUTO DIFF monocytes percent auto 7 % not estb. Not Available [facility] ([facility]) [address], [place], [address], 10/30/2024 21:33:28 10/30/20 24 10/30/2024 COMPL ETE BLOOD COUNT AUTO DIFF eosinophils percent auto 2 % not estb. Not Available [facility] ([facility]) [address], [place], [address], 10/30/2024 21:33:28 10/30/20 24 10/30/2024 COMPL ETE BLOOD COUNT AUTO DIFF basophils percent auto 0 % not estb. Not Available [facility] ([facility]) [address], [place], [address], 10/30/2024 21:33:28 10/30/20 24 10/30/2024 COMPL ETE BLOOD COUNT AUTO DIFF neutrophils absolute auto 6.7 x10e3 /uL 1.4-7. 0 normal Not Available [facility] ([facility]) [address], [place], [address], 10/30/2024 21:33:28 10/30/20 24 10/30/2024 COMPL ETE BLOOD COUNT AUTO DIFF immature granulocytes abs auto 0.0 x10e3 /uL 0.0-0. 1 normal Not Available [facility] ([facility]) [address], [place], [address], 10/30/2024 21:33:28 10/30/20 24 10/30/2024 COMPL ETE BLOOD COUNT AUTO DIFF lymphocytes absolute auto 2.1 x10e3 /uL 0.7-3. 1 normal Not Available [facility] ([facility]) [address] [place], [address], 10/30/2024 21:33:28 10/30/20 24 10/30/2024 COMPL ETE BLOOD COUNT AUTO DIFF monocytes absolute auto 0.7 x10e3 /uL 0.1-0. 9 normal Not Available [facility] ([facility]) [address], [place], [address], 10/30/2024 21:33:28 10/30/20 24 10/30/2024 COMPL ETE BLOOD COUNT AUTO DIFF eosinophils absolute auto 0.2 x10e3 /uL 0.0-0. 4 normal Not Available [facility] ([facility]) [address] [facility], [place], [address], 10/30/2024 21:33:28 10/30/20 24 10/30/2024 COMPL ETE BLOOD COUNT AUTO DIFF basophils absolute auto 0.0 x10e3 /uL 0.0-0. 2 normal Not Available [facility] ([facility]) [address] [facility], [place], [address], 10/30/2024 21:33:28 10/30/20 24 10/30/2024 COMPL ETE BLOOD COUNT AUTO DIFF nucleated red blood cells auto 0 % 0-0 normal Not Available [facility] ([facility]) [address] [facility], [place], [address], 10/30/2024 21:33:28 10/30/20 24 10/30/2024 SCAN platelet morphology comment Normal Not Available [facility] [address] [facility], [place], [address], 10/30/2024 22:26:15 10/30/20 24 10/30/2024 SCAN RBC morphology comment ABNORM AL normal abnormal Not Available [facility] ([facility]) [address] [place], [address], 10/30/2024 22:26:15 10/30/20 24 10/30/2024 SCAN anisocytosis 1+ not estb. Not Available [facility] ([facility]) [address] [facility], [place], [address], 10/30/2024 22:26:15 10/30/20 24 10/30/2024 HEPAT IC FUNCT ION PANEL bilirubin total 0.5 mg/dL 0.0-1. 2 normal Not Available [facility] (Lab) [address] [place], [address], 10/30/2024 23:28:16 10/30/20 24 10/30/2024 HEPAT IC FUNCT ION PANEL bilirubin direct <=0.20 mg/dL 0.00-0 .40 normal Not Available [facility] ([facility]) [address] [facility], [place], [address], 10/30/2024 23:28:16 10/30/20 24 10/30/2024 HEPAT IC FUNCT ION PANEL aspartate amino transferase 7 IU/L 0-40 normal Not Available [facility] (Lab) [address] [place], [address], 10/30/2024 23:28:16 10/30/20 24 10/30/2024 HEPAT IC FUNCT ION PANEL alanine aminotransfe rase <=5 IU/L 0-32 normal Not Available [facility] ([facility] [address] [place], [address], 10/30/2024 23:28:16 10/30/20 24 10/30/2024 HEPAT IC FUNCT ION PANEL total protein 6.5 g/dL 6.0-8. 5 normal Not Available [facility] (Lab) [address] [place], [address], 10/30/2024 23:28:16 10/30/20 24 10/30/2024 HEPAT IC FUNCT ION PANEL albumin level 3.7 g/dL 3.8-4. 9 low Not Available [facility] (Lab) [address] [place], [address], 10/30/2024 23:28:16 10/30/20 24 10/30/2024 HEPAT IC FUNCT ION PANEL alkaline phosphatase 117 IU/L 44-121 normal Not Available [facility] (Lab) [address] [place], [address], 10/30/2024 23:28:16 10/30/20 24 10/30/2024 BASIC METAB OLIC PANEL sodium 133 mmol/ L 134-14 4 low Not Available [facility] [address] [place], [address], 10/30/2024 23:28:16 10/30/20 24 10/30/2024 BASIC METAB OLIC PANEL potassium 3.9 mmol/ L 3.5-5. 2 normal Not Available [facility] ([facility]) [address] [place], [address], 10/30/2024 23:28:16 10/30/20 24 10/30/2024 BASIC METAB OLIC PANEL chloride 86 mmol/ L 96-106 low Not Available [facility] (Lab) [address] [place], [address], 10/30/2024 23:28:16 10/30/20 24 10/30/2024 BASIC METAB OLIC PANEL carbon dioxide 45 mmol/ L 20-29 critical high RESUL TS VERIF IED AND AHMADI D TO DR. HAROON Brasher BY ISAIAH SteenT AT 2222 ON 10/30. Not Available [facility] (Lab) [address] [facility], [place], [address], 10/30/2024 23:28:16 10/30/20 24 10/30/2024 BASIC METAB OLIC PANEL anion gap 6.0 mmol/ L Not Available [facility] (Lab) [address] [place], [address], 10/30/2024 23:28:16 10/30/20 24 10/30/2024 BASIC METAB OLIC PANEL blood urea nitrogen 14 mg/dL 6-24 normal Not Available [facility] ([facility]) [address] [place], [address], 10/30/2024 23:28:16 10/30/20 24 10/30/2024 BASIC METAB OLIC PANEL creatinine 0.79 mg/dL 0.76-1 .27 normal Not Available [facility] (Lab) [address] [place], [address], 10/30/2024 23:28:16 10/30/20 24 10/30/2024 BASIC METAB OLIC PANEL glomerular filtration rate 88 mL/mi n/1 Not Available [facility] (Lab) [address] [place], [address], 10/30/2024 23:28:16 10/30/20 24 10/30/2024 BASIC METAB OLIC PANEL BUN creatinine ratio 17 9-23 normal Not Available [facility] ([facility]) [address] [place], [address], 10/30/2024 23:28:16 10/30/20 24 10/30/2024 BASIC METAB OLIC PANEL glucose 129 mg/dL 70-99 high Not Available [facility] (Lab) [address] [place], [address], 10/30/2024 23:28:16 10/30/20 24 10/30/2024 BASIC METAB OLIC PANEL osmolality calculated 268 275-29 5 low Not Available [facility] (Lab) [address] [facility], [place], [address], 10/30/2024 23:28:16 10/30/20 24 10/30/2024 BASIC METAB OLIC PANEL calcium 9.4 mg/dL 8.7-10 .2 normal Not Available [facility] (Lab) [address] [place], [address], 10/30/2024 23:28:16 10/30/20 24 11/01/2024 TSH+F REE T4 TSH 8.630 uIU/m L 0.450- 4.500 abnormal Not Available [facility] (Lab) [address] [place], [address], 11/01/2024 08:15:14 10/30/20 24 11/01/2024 TSH+F REE T4 T4,free(dire ct) 1.48 NG/dL 0.82-1 .77 Perfo rmed at: 01 - [facility] n [address] [facility], [place] [address] 1268 Lab Direc tor: John alfonso PhD, Phone : [phone] Not Available [facility] (Lab) [address] [place], [address], 11/01/2024 08:15:14 10/30/20 24 11/01/2024 B-TYP E NATRI URETI C PEPTI DE B-type natriuretic peptide 431.6 pg/mL 0.0-10 0.0 abnormal Sieme ns ADVIA Centa ur XP metho dolog y Perfo rmed at: 01 - [facility] n [address] [facility], [place] [address] Lab Dire tor: John alfonso PhD, Phone : [phone] Not Available [facility] (Lab) [address] [place], [address], 11/01/2024 11:10:38 08/19/20 24 xr chest Pa or AP 1V [facility] [address] [place] [address] [facility] [place] [address] . [facility] [address] [place] [address] CLINIC AL HISTOR Y: Cough, histor y of CHF COMPAR GISELLA: None TECHNI QUE: AP Portab le View FINDIN GS: Lungs are clear. No pneumo thorax or pleura l effusi ons eviden t. There is cardio megaly . Medias tinal contou rs and pulmon esdras vessel s appear within normal limits . No acute osseou s abnorm ality. IMPRES APOLINAR: Cardio megaly . Referr ed By: Parviz mora Signed By: Carlton valdez on 11:27 PM Interp reted By: Carlton valdez, 11:26 PM [email or web address] [address], [place], [address], 08/19/2024 08:35:01 08/19/20 24 XR, chest [facility] [place] [address] [facility] [place] [address] [facility] [address] [place], [place] [id number] Examin ation: Chest 1 view portab le Histor y: Shortn ess of breath DATE/T SCOTTY: 3:11 PM Compar gisella: Techni que: AP semiup right portab le view of the chest was obtain ed. Findin gs: Mild cardio megaly . Mild pulmon esdras vascul ar conges tion. No pulmon esdras consol idatio n, pleura l effusi on or pneumo thorax . No acute osseou s abnorm ality. Impres apolinar: Cardio megaly and pulmon esdras vascul ar conges tion. Referr ed By: Electr onical ly Signed By: Rolf Pyle MD on 3:52 PM Interp reted By: Rolf Pyle MD, 3:49 PM [email or web address] [facility] [address] [facility], [place], [address], 08/19/2024 18:49:54 08/20/20 24 ECG 12-le ad [facility] [place] [address] [facility] [place] [address], [place] Test Date: 2023-11 Pat Name: ZENIA SY [facility] Depart ment: 40 Patien t ID: [id number] Room: [facility] Gender : Female Techni edda: : 0 3-30 Reques christina By: RAYMOND GARCIA Order Number : [id number] Desiree calderon MD: Ayden harp Measur ements Interv als Ava Rate: 62 P: 64 NH: 210 QRS: -35 QRSD: 101 T: 45 QT: 405 QTc: 412 Interp retive Statem ents SINUS RHYTHM WITH FIRST DEGREE AV BLOCK LEFT AXIS DEVIAT ION [QRS AXIS < -30] Poor R Wave Progre ssion Electr onical ly signed by Ayden harp at 15:24: 02 CDT [email or web address] [address], [place], [address], 08/20/2024 18:19:08 09/02/20 24 ECG 12-le ad [facility] [place] [address] [facility] [place] [address], [place] Test Date: 2023-11 Pat Name: ZENIA SY [facility] Depart ment: 39 Patien t ID: [id number] Room: INNH Gender : Female Techni edda: : 3-30 Reques christina By: YVES Navarro Order Number : [id number] Desiree calderon MD: Bandar Colby Measur ements Interv als Ava Rate: 65 P: 45 NH: 194 QRS: -32 QRSD: 98 T: 22 QT: 383 QTc: 401 Interp retive Statem ents SINUS RHYTHM Compar ed to ECG 2023 13:32: 18 Myocar dial infarc t findin g now presen t First degree AV block no longer presen t Poor R-wave progre ssion no longer presen t Other ischem ic change s, not STEMI Prelim inary EKG Interp retati on by Yves navarro, STAFF TOXICOLOGIST Electr onical ly signed by Bandar Colby at 2023 21:23: [address], [place], [address], 09/03/2024 16:04:06 09/02/20 24 ECG 12-le ad [facility] [place] [address] [facility] [place] [address] [place] Test Date: 2023-11 0 Pat Name: ZENIA SY RT Depart ment: 41 Patien t ID: [id number] Room: INPR Gender : Female Techni edda: : 3-30 Reques christina By: YVES Navarro Order Number : [id number] Desiree calderon MD: Bandar Colby Measur ements Interv als Ava Rate: 65 P: 45 NH: 194 QRS: -32 QRSD: 98 T: 22 QT: 383 QTc: 401 Interp retive Statem ents SINUS RHYTHM Compar ed to ECG 2023 13:32: 18 Myocar dial infarc t findin g now presen t First degree AV block no longer presen t Poor R-wave progre ssion no longer presen t Other ischem ic change s, not STEMI Prelim inary EKG Interp retati on by Yves navarro, STAFF TOXICOLOGIST Electr onical ly signed by Bandar Colby at 2023 21:23: 38 CDT [email or web address] [facility] 1 [facility], [place], [address], 09/03/2024 16:04:07 09/13/20 24 XR, chest [facility] [place] [address] [facility] [place] [facility] [address] [place] [address] EXAMIN ATION: X-ray chest HISTOR Y: Shortn ess of breath . Anxiet y. COMPAR GISELLA: Chest x-ray 024. TECHNI QUE: Portab le AP view chest. FINDIN GS: The heart is enlarg ed. No medias tinal shift. There is bilate ral inters titial promin ence sugges tive of vascul ar conges tion. Probab le trace bilate ral pleura l effusi ons. No eviden ce of pneumo tk or pneumo thorax . There are benign calcif ied nodule s and lymph nodes. There is athero sclero tic calcif icatio n of the aorta. IMPRES APOLINAR: Cardio megaly with vascul ar conges tion. Referr ed By: Electr onical ly Signed By: Rizwana Reeder DO on 2023 7:04 PM Interp reted By: Rizwana Reeder DO, 2023 7:03 PM [email or web address] [facility] [address] [facility] [facility] [address], [place], [address], 09/16/2024 18:14:00 09/14/20 24 ECG 12-le ad [facility] [address] [facility] [place] [address], [place] Test Date: 2023-11 Pat Name: ZENIA SY [facility] Depart ment: 41 Patien t ID: [id number] Room: [facility] Gender : Female Techni edda: : 3-30 Reques christina By: LEANNA HENRIQUEZ TON Order Number : [id number] Desiree calderon MD: Rosendo Amaro Measur ements Interv als Ava Rate: 66 P: 39 NH: 185 QRS: -35 QRSD: 95 T: 28 QT: 413 QTc: 433 Interp retive Statem ents SINUS RHYTHM MARKED LEFT AXIS DEVIAT ION [QRS AXIS < -30] MINIMA L VOLTAG E CRITER IA FOR LVH, CONSID ER NORMAL VARIAN T [MEETS CRITER IA IN ONE OF: R(aVL) , S(V1), R(V5), R(V5/V 6)+S(V 1)] POSSIB LE ANTERI OR MYOCAR DIAL INFARC TION [30 ms Q WAVE IN V3/V4, OR R < 0.2 mV IN V4], PROBAB LY OLD Compar ed to ECG 2023 19:09: 28 Left-a xis deviat ion now presen t Myocar dial infarc t janiyain g now presen t Electr onical ly signed by Rosendo Amaro at 2023 16:36: 38 [email or web address], [address], 09/16/2024 18:14:01 09/14/20 24 ECG 12-le ad [facility] [place] [address] [facility] [place] [address], [place] Test Date: 2023-11 0 Pat Name: ZENIA SY RT Depart ment: 41 Patien t ID: [id number] Room: [facility] Gender : Female Techni edda: : 3-30 Reques christina By: LEANNA HENRIQUEZ TON Order Number : [id number] Desiree calderon MD: Rosendo mAaro Measur ements Interv als Ava Rate: 66 P: 39 NH: 185 QRS: -35 QRSD: 95 T: 28 QT: 413 QTc: 433 Interp retive Statem ents SINUS RHYTHM MARKED LEFT AXIS DEVIAT ION [QRS AXIS < -30] MINIMA L VOLTAG E CRITER IA FOR LVH, CONSID ER NORMAL VARIAN T [MEETS CRITER IA IN ONE OF: R(aVL) , S(V1), R(V5), R(V5/V 6)+S(V 1)] POSSIB LE ANTERI OR MYOCAR DIAL INFARC TION [30 ms Q WAVE IN V3/V4, OR R < 0.2 mV IN V4], PROBAB LY OLD Compar ed to ECG 2023 19:09: 28 Left-a xis deviat ion now presen t Myocar dial infarc t findin g now presen t Electr onical ly signed by Rosendo Amaro at 2023 16:36: 38 CDT [email or web address] [facility] 1 [facility], [place], [address], 09/16/2024 18:14:01 10/21/20 24 XR, chest [facility] ONE [facility] [place] [address] [facility] [place] [facility] [address] [place], [place] [address] PATISONAM T NAME: ZENIA FRANKSFAUSTO RTH EXAM: Chest one view DATE OF EXAM: COMPAR GISELLA EXAM: 2023 INDICA TION: Edema, short of breath TECHNI QUE: AP chest FINDIN GS: There is cardia c megaly simila r to previo us study. Mild centra l pulmon esdras vascul ar conges tion and inters titial edema simila r to previo us study. No signif icant acute airspa ce consol idatio n. No pleura l effusi on. No hyperi nflati on. IMPRES APOLINAR: 1. CARDIO MEGALY WITH MILD CENTRA L PULMON ESDRAS VASCUL AR CONGES TION AND INTERS TITIAL EDEMA SIMILA R TO PREVIO US STUDY. Signed : Everardo castellon MD Referr ed By: Parviz kent ly Signed By: Everardo castellon MD on 8:10 PM Interp reted By: Everardo castellon MD, 8:09 PM [facility] 1 [facility], [place], [address], 10/22/2024 08:16:12 10/23/20 24 ECG 12-le ad [facility] [place] [address] [facility] [address] [place] [address] [place] Test Date: 2023-11 Pat Name: ZENIA SY RTH Depart ment: 41 Patien t ID: [id number] Room: EXAM13 Gender : Female Techni edda: [id number] : 3-30 Reques christina By: TERRENCE CARTWRIGHT Order Number : [id number] Desiree calderon MD: Gunnar Banerjee Measur ements Interv als Ava Rate: 66 P: 21 NH: 188 QRS: -24 QRSD: 97 T: 61 QT: 381 QTc: 400 Interp retive Statem ents SINUS RHYTHM POSSIB LE ANTERI OR MYOCAR DIAL INFARC TION , PROBAB LY OLD [30 ms Q WAVE IN V3/V4, OR R < 0.2 mV IN V4] Compar ed to ECG 2023 19:11: 03 Left-a xis deviat ion no longer presen t Myocar dial infarc t findin g still presen t Electr onical ly signed by Gunnar Banerjee at 6:11:4 5 ROOFING MACHINE OPERATOR [email or web address] [facility] 1 [facility], [place], [address], 10/23/2024 08:15:34 10/23/20 24 ECG 12-le ad [facility] ONE [facility] [place] [place] [address] [facility] [place] [address] [place] [place] Test Date: 2023-11 Pat Name: ZENIA SY [facility] Depart ment: 41 Patien t ID: [id number] Room: [facility] Gender : Female Techni edda: [id number] : 1969-0 3-30 Reques christina By: TERRENCE CARTWRIGHT Order Number : [id number] Desiree calderon MD: Gunnar Banerjee Measur ements Interv als Ava Rate: 66 P: 21 NH: 188 QRS: -24 QRSD: 97 T: 61 QT: 381 QTc: 400 Interp retive Statem ents SINUS RHYTHM POSSIB LE ANTERI OR MYOCAR DIAL INFARC TION , PROBAB LY OLD [30 ms Q WAVE IN V3/V4, OR R < 0.2 mV IN V4] Compar ed to ECG 2023 19:11: 03 Left-a xis deviat ion no longer presen t Myocar dial infarc t findin g still presen t Electr onical ly signed by Gunnar Banerjee at 12-4-2 024 6:11:4 5 ROOFING MACHINE OPERATOR [email or web address] [facility] [address] [facility] [facility], [place], [address], 10/23/2024 08:15:35 11/05/20 24 08/31/2022 US, echoc ardio gram, trans thora cic, compl ete, w/ color flow No observ ation record ed. BARCODE Not Available 2023 17:43:04 11/05/20 24 12/16/2022 nuvia can cardi olite stres s test (PROC ) No observ ation record ed. BARCODE Not Available 2023 17:43:04 11/05/20 24 02/07/2023 imagi ng/di agnos tic resul t No observ ation record ed. BARCODE Not Available 2023 17:43:04 11/05/20 24 08/22/2023 US, echoc ardio gram, trans thora cic, compl ete, w/ color flow No observ ation record ed. BARCODE Not Available 2023 17:43:04 11/05/20 24 10/21/2024 elect rocar diogr am No observ ation record ed. BARCODE Not Available 2023 17:43:04 12/01/19 25 XR, chest [facility] [place] [address] [facility] [place] [facility] [address] [place], [place] [address] Examin ation: Chest 1 view portab le Histor y: Pain DATE/T SCOTTY: 025 6:51 PM Compar gisella: Decemb er 2023 Techni que: AP uprigh t portab le view of the chest was obtain ed. Findin gs: Cardia l megaly . Mild pulmon esdras vascul ar conges tion. No pulmon esdras consol idatio n, pleura l effusi on or pneumo thorax . Mild linear left basila r atelec tasis. No acute osseou s abnorm ality. Impres apolinar: Cardio megaly and pulmon esdras vascul ar conges tion. Referr ed By: Electr onical ly Signed By: Rolf Pyle MD on 7:15 PM Interp reted By: Rolf Pyle MD, 7:15 PM [email or web address] [facility] 1 [facility], [place], [address], 12/02/2024 08:49:20 12/02/19 25 ECG 12-le ad [facility] ONE [facility] [place] [address] [facility] [place] [address] [facility] [address] [facility] Test Date: 12-01 Pat Name: ZENIA SY [facility] Depart ment: 41 Patien t ID: [id number] Room: [facility] Gender : Female Techni edda: [id number] : 3-30 Reques christina By: YASH Castellon Order Number : [id number] Desiree calderon MD: Ayden harp Measur ements Interv als Ava Rate: 62 P: 59 NH: 205 QRS: -32 QRSD: 114 T: 74 QT: 464 QTc: 472 Interp retive Statem ents SINUS RHYTHM LEFT AXIS DEVIAT ION [QRS AXIS < -30] Poor R Wave Progre ssion Compar ed to ECG 2023 19:48: 49 Left-a xis deviat ion now presen t Electr onical ly signed by Ayden harp at 9:35:5 5 ROOFING MACHINE OPERATOR [email or web address] [facility] 1 [facility], [place], [address], 12/02/2024 11:03:58 12/02/19 25 ECG 12-le ad [facility] ONE [facility] [place] [address] [facility] [place] [address] [facility] [address] [place] Test Date: 1-12 Pat Name: ZENIA SY RTH Depart ment: 41 So [place] ID: [id number] Room: A501 Gender : Female Techni edda: [id number] : 3-30 Reques christina By: YASH Castellon Order Number : [id number] Desiree calderon MD: Ayden harp Measur ements Interv als Ava Rate: 62 P: 59 NH: 205 QRS: -32 QRSD: 114 T: 74 QT: 464 QTc: 472 Interp retive Statem ents SINUS RHYTHM LEFT AXIS DEVIAT ION [QRS AXIS < -30] Poor R Wave Progre ssion Compar ed to ECG 2023 19:48: 49 Left-a xis deviat ion now presen t Electr onical ly signed by Ayden harp at 9:35:5 5 ROOFING MACHINE OPERATOR [email or web address] [facility] 1 [facility], [place], [address], 12/02/2024 11:03:58 12/02/19 25 xr ABD KUB [facility] [place] [address] [facility] [place] [facility] . [facility] [address] [place], [place] [address] ROSHAN FINN S: XR ABD KUB DATE: 2:17 PM HISTOR Y: abdomi nal disten tion 54-yea r-old female . Abdomi nal disten tion and pain. Curren t inpati ent. Patien t is report edly 5 feet 5 inches , 230 pounds , and BMI 38.3 on 025. COMPAR GISELLA: Chest portab le . DISCUS APOLINAR: Patien t report edly could not lay down and theref ore uprigh t views of the abdome n and pelvis were obtain ed on 3 images . Examin ation is limite d due to large body habitu s. Additi onally , there is breath ing motion on views of the mid to upper abdome n. Mildly air disten ded bowel loops in the left upper abdome n, minima l air disten tion of mid abdomi nal bowel loops, and no apprec iable air disten tion of pelvic bowel loops. IMPRES APOLINAR: Limite d abdomi nal radiog raphs with greate st air disten tion of bowel loops in the left upper quadra nt. Consid er CT for evalua tion if clinic [facility] shah Ordere d By: GENI ARRIETA Electr onical ly Signed By: Nicole Morse on 3:39 PM Interp reted By: Nicole Morse , 3:19 PM [facility] 1 [facility], [place], [address], 12/02/2024 18:40:20 12/02/19 25 use echoc ardio gram [facility] [place] [address] Echoca rdiogr aphy Report Pat.Na me: ZENIA OKEEFE Pat.ID : [id number] .Jhonny e: Refer. MD: michelle Krishnamurthy Exam Time: 10:24: 00 AM Study Type:E CHO WITH CARDIA C DOPPLE R COMP Height : 77 in Weight : 230 lb BSA: 2.37 m2 Age: [birth year]54 Y Sex: F HR: 60 bpm Sonogr phr: Katya Acevedo RDCS Pat. Stat.: Inpati ent Room: 501 Reason for Study: CHF Proced ures: 2D, M-mode , Dopple r, Color Flow, The study qualit y is techni edgardo adequa te. Race: W ++++++ ++++++ ++++++ ++++++ ++++++ ++++++ SUMMAR Y: ++++++ ++++++ ++++++ ++++++ ++++++ ++++++ The left ventri cular size is mildly enlarg ed. Estima christina left ventri cular ejecti on fracti on is 55-60% . Mild to modera te concen tric left ventri cular hypert rophy. Left ventri cular diasto lic functi on is abnorm al. Wall motion appear s normal in all segmen ts. The right ventri cular size is mild to modera tely enlarg ed. Right ventri cular systol ic functi on is normal . Modera te aortic regurg itatio n. ++++++ ++++++ ++++++ ++++++ ++++++ ++++++ FINDIN GS: ++++++ ++++++ ++++++ ++++++ ++++++ ++++++ LV: The left ventri cular size is mildly enlarg ed. Estima christina left ventri cular ejecti on fracti on is 55-60% . Mild to modera te concen tric left ventri cular hypert rophy. Left ventri cular diasto lic functi on is abnorm al. WM: Wall motion appear s normal in all segmen ts. RV: The right ventri cular size is mild to modera tely enlarg ed. Right ventri cular systol ic functi on is normal . IVS: No eviden ce of ventri cular septal defect . Abnorm al septal motion is noted. LA: The left atrial size is normal . The left atrial volume is normal ( less than 34 ml/M2) . RA: Right atrial size is normal . IAS: Atrial septum appear s intact . JULIEN: No eviden ce of perica rdial effusi on. AO: Normal aortic root. PA: Estima christina right atrial pressu re of 15 mmHg. SVn: Inferi or vena cava is severe ly enlarg ed. Inferi or vena cava shows <50% collap se with respir ation consis tent with elevat ed right atrial pressu re. System ic veins not well visual ized. AV: No eviden ce of aortic valve stenos is. Modera te aortic regurg itatio n. MV: Trace mitral regurg itatio n. No eviden ce of mitral valve stenos is. 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 PV: Trace pulmon ic regurg itatio n. No eviden ce of pulmon ic valve stenos is. TV: Modera te tricus pid regurg itatio n. Right ventri cular systol ic pressu re is 47 mmHg. No eviden ce of tricus pid valve stenos is. 2024 09:35 PM Rosendo Amaro M.D. [facility] 1 [facility], [place], [address], 12/03/2024 08:30:28 12/06/19 25 US, abdom en, limit ed [facility] [address] [facility] [place] [facility] [address] [place] [address] Exam: Abdomi nal ultras ound ascite s check Access ion: [id number] Exam Date/T scotty: 12:51 PM Clinic al indica tion: 54 female . Report ed enlarg ed right abdome n. Evalua tion for ascite s. Compar gisella: None Techni que: Ultras ound of the 4 abdomi nal quadra nts was perfor med to assess for the presen ce of ascite s. FINDIN GS: There is small volume ascite s. There is trace perihe patic fluid. Small pocket s of fluid presen t in left upper and lower quadra nts. Larges t fluid pocket is in the right lower quadra nt with a fluid depth of 11 cm. =====I MPRESS ION:== === Small volume ascite s with the larges t right lower quadra nt fluid pocket depth of 11 cm. Ordere d By: MACIEL Jj onical ly Signed By: Alejandra Willis MD on 025 2:06 PM Interp reted By: Alejandra Willis MD, 025 2:04 PM [facility] [address], [place], [address], 12/06/2024 15:13:58 12/07/[address] chest +ABD+ pel W con [facility] ONE [facility] [place] [address] [facility] [place] [facility] . [facility] [address] [place] [address] EXAMIN ATION: CT chest, abdome n and pelvis with contra st ACCESS ION: [id number] EXAM DATE/T SCOTTY: 1:15 PM REASON FOR EXAM: Abdomi nal disten tion, abnorm al findin gs on abd US; acute/ chroni c resp failur e COMPAR GISELLA: Prior ultras ound images . TECHNI QUE: Axial CT obtain ed of the chest, abdome n and pelvis with contra st, 100 mL Isovue -370. Multip lanar recons tructi ons are perfor med. Automa christina exposu re contro l was utiliz ed for dose reduct ion. FINDIN GS: Medias tinal window s: Mild cardio megaly . Minima l perica rdial fluid. Mild mendoza ry artery calcif icatio ns. Mild aortic valve calcif icatio ns. Athero sclero tic aorta and great vessel s. Additi onal scatte red bilate ral calcif icatio ns elsewh ere. Nodula rity of the left anteri or medias tinum, left thorac ic inlet and left suprac lavicu lar region could be mild adenop athy or varice s, not well charac terize d. Suspec christina left suprac lavicu lar conflu ent lymph nodes measur ing 2.3 x 1.1 cm (image 9). Left thorac ic inlet interm ediate densit y tissue measur ing 2.6 x 1.4 cm (image 13). Left thyroi d nodule measur ing approx imatel y 1.7 cm. Right thyroi d lobe is marked ly atroph ic. Trache a and esopha fede are unrema rkable . Lung window s: Modera te emphys kathy, most severe in the upper lobes. Patchy atelec tasis in the lung bases. Lung detail is obscur ed by motion artifa ct. No suspic ious infilt rate or pleura l effusi on. Lung detail is obscur ed by motion and atelec tasis. Left upper lobe pulmon esdras nodule measur es 5 mm. (Image 56). A few tiny nodula r foci elsewh ere are obscur ed. Abdome n findin gs: Modera te to large ascite s greate st in the lower abdome n and pelvis . Hepato megaly with hetero geneou s echote xture of the liver. Liver contou r nodula rity sugges ting hepato cellul ar diseas e/cirr hosis. No discre te liver mass is demons trated on this exam. Gallbl adder is nondis tended with tiny gallst ones depend ently. Spleni c granul omatou s calcif icatio ns. Pancre as and adrena l glands are unrema rkable . Kidney s are somewh at atroph ic with mild renal cortic al thinni ng bilate rally. IVC is somewh at disten ded, likely elevat ed centra l venous pressu res. Athero sclero tic aorta and branch ing vessel s. Mild retrop eriton eal shotty adenop athy. Large and small bowel are grossl y unrema rkable . Mild retain ed stool, within physio logic limits . Pelvis : Bladde r is decomp ressed with Tom cathet er in place. Some air in the bladde r relate d to cathet er placem ent. Uterus , ovarie s and rectum are grossl y unrema rkable . Ascite s as above. Extens aleja bilate ral vascul ar calcif icatio ns. Modera te bilate ral pelvic and inguin al lympha denopa thy. Some degree of pelvic floor relaxa tion noted. Other findin gs: Marked diffus e body wall soft tissue edema in the lower abdome n, pelvis and thighs compat ible with anasar ca. Diffus e degene rative change s are noted. No acute fractu re or destru ctive bone lesion . Benign morteza ioma in the lower thorac ic spine, T11 level. ===== IMPRES APOLINAR:= ==== 1. Enlarg ed hetero geneou s liver with nodula r contou r. Findin gs sugges t hepato cellul ar diseas e, liver failur e and develo ping cirrho sis. 2. Modera te to large ascite s. 3. Body wall soft tissue edema/ anasar ca. 4. Cholel ithias is. 5. Retrop eriton eal, pelvic and inguin al lympha denopa thy is indete rminat e. Furthe r workup recomm ended with either short interv al follow -up to assure resolu tion or PET/CT correl ation. 6. Nodula rity of the left upper medias tinum and suprac lavicu lar region , possib le venous or lympha tic varice s versus adenop athy. This may be reasse ssed upon short interv al follow -up. 7. Cardio megaly with mild mendoza ry artery calcif icatio ns. 8. Left upper lobe 5 mm pulmon esdras nodule may be reasse ssed upon follow -up. 9. Emphys kathy. 10. Left thyroi d nodule . Outpat ient thyroi d ultras ound recomm ended. Referr ed By: Parviz onical ly Signed By: Luis Titus MD on 025 3:05 PM Interp reted By: Luis Titus MD, 025 2:36 PM [email or web address] [facility] 1 [facility], [place], [address], 12/09/2024 17:31:29 12/09/19 25 US gd parac ent W imagi ng [facility] [place] [address] [facility] [place] [facility] [address] [place] [address] Examin ation: Ultras ound-g uided parace ntesis with imagin g Access ion: [id number] Exam date/t scotty: 025 1:10 PM Reason For Exam: 54 female presen ting for diagno stic and therap eutic first parace ntesis . Abdomi nal disten tion with ascite s seen on imagin g. Abnorm al liver morpho logy of imagin g with other chroni c medica l issues . Compar gisella: CT chest abdome n pelvis 025 Techni que: Inform ed verbal and writte n consen t was obtain ed from the patien t/catherine ent's medica l decisi on maker caregi mayank. The detail s of proced ure were discus sed, includ ing all applic able risks, benefi ts and altern atives . Patien t expres sed unders tandin g and wished to procee d. Initia l survey ultras ound perfor med docume nting the presen ce of modera te ascite s. A timeou t was perfor med. A left lower quadra nt skin access site was chosen with ultras ound guidan ce, and preppe d and draped . Steril e ultras ound techni que, includ ing hand wash with soap and water, was employ ed for the proced ure.1% lidoca ine was admini stered for local anesth esia and the skin and deeper soft tissue s down to the perito neum. A small skin incisi on was made throug h which a 6 Armenian Yueh one-st ep cathet er was advanc ed under ultras ound guidan ce throug h the abdomi nal wall into the perito juanita cavity . Fluid was return ed. The inner stylet was remove d and the cathet er attach ed to tubing attach ed to serial vacuum contai ners via a three- way stopco ck, allowi ng withdr awal of clear straw- colore d ascite s. Once aspira tion stoppe d, the cathet er was remove d. Compre ssion was applie d and hemost asis obtain ed and a steril e dressi ng placed . The patien t tolera christina the proced ure well with no immedi ate compli cation . Findin gs: Modera te ascite s. There is uneven tful remova l of 3.55 liters of fluid from the perito juanita cavity with trace no draina ble residu al ascite s remain ing by ultras ound post proced ure. =====I MPRESS ION:== === 1. Modera te ascite s 2. Proced ure note for left lower quadra nt approa ch parace ntesis perfor med with ultras ound choco ce. 3. 3.55 L of fluid remove d. 4. No albumi n IV placem ent to follow per protoc ol. 5. No immedi ate compli cation . Ordere d By: MACIEL ALANIZ Electr onical ly Signed By: Alejandra Willis MD on 025 2:26 PM Interp reted By: Alejandra Willis MD, 025 1:[email or web address] [place] [address] 1 [facility], [place], [address], 12/09/2024 17:31:29 Result Notes None recorded. Problems Name Problem SNOMED Code Status Onset Date Resolution Date Notes Provider Name and Address Organization Details Recorded Time Hypothyroidism 62989667 Active 2023 Rizwana Herring DO Attn: Josep calderon,[address] [place], [address], [place] [facility] 4 20:22:54 Steatosis of liver 533620927 Active 2023 Rizwana Herring DO Attn: Josep calderon,[address] [place], [address], [place] [facility] 4 20:22:55 Aortic valve stenosis 50237980 Active 2023 Rizwana Herring DO Attn: Josep calderon,[address] [place], [address], [place] 4 20:22:56 Obesity 378481590 Active 2023 Rizwana Herring DO Attn: Josep calderon,[address] [place], [address], [place] [facility] 4 20:22:58 Smoker 32905328 Active 2023 Rizwana Herring DO Attn: Jaspermuarice calderon,[address] [facility], [place], [address], [place] [facility] 4 20:22:59 Vitamin D deficiency 42129346 Active 2023 Rizwana Herring DO Attn: Jaspermaurice calderon,[address] [facility], [place], [address], [place] [facility] 4 20:23:01 Cardiomyopathy 18307611 Active 2023 Rizwana Herring DO Attn: Jaspermaurice calderon,[address] [facility], [place], [address], [place] [facility] 4 20:23:02 Coronary arterioscleros is 28312811 Active 2023 Rizwana Herring DO Attn: Jaspermaurice calderon,[address] [facility], [place], [address], [place] [facility] 4 20:23:03 Peripheral vascular disease 774417883 Active 2023 Rizwana Herring DO Attn: Jaspermaurice calderon,[address] [facility], [place], [address], [place] [facility] 4 20:23:05 Nodule of lung 038848800 Active 2023 Rizwana Herring DO Attn: Jaspermaurice calderon,[address] [facility], [place], [address], [place] [facility] 4 20:23:07 Hyperglycemia 00761613 Active 2023 Rizwana Herring DO Attn: Josep yumiko,[address] [facility], [place], [address], [place] [facility] 4 20:23:08 Hyperlipidemia 24649507 Active 2023 Rizwana Herring DO Attn: Josep yumiko,[address] [facility], [place], [address], [place] [facility] 4 20:23:09 Essential hypertension 01086369 Active 2023 Rizwana Herring DO Attn: Jaspermaurice calderon,[address] [place], [place], [address] [place] [address] 2, [place] [facility] 4 20:23:11 Cobalamin deficiency 622101980 Active 2023 Rizwana Herring DO Attn: Jaspermaurice calderon,[address] [place], [address] [place] [address], [place] [facility] 4 20:23:13 Gastroesophage al reflux disease without esophagitis 582937844 Active 2023 Rizwana Herring DO Attn: Josep calderon,[address] [place], [place], [address] [place] [address] 2, [place] [facility] 4 20:23:13 Chronic constipation 178463383 Active 2023 Rizwana Herring DO Attn: Jaspermaurice calderon,[address] [place], [place], [address] [place] [address], [place] [facility] 4 15:55:01 Seasonal allergy 751251778 Active 2023 Rizwana Herring DO Attn: Josep calderon,[address] [place], [place], [address] [place] [address] 2, [place] [facility] 4 15:59:35 Post-discharge follow-up 019080042 Active 2023 Rizwana Herring DO Attn: Jaspermaurice calderon,[address] [place], [place], [address] [place] [address] 2, [place] [facility] 4 19:23:52 Altered mental status 049535166 Active 2023 Rizwana Herring DO Attn: Jaspermaurice calderon,[address] [place], [address] [place] [address] 2, [place] [facility] 4 19:23:53 Problem Notes None recorded. Procedures Surgical History Date Name Laterality Status Provider Name and Address Organization Details Recorded Time Knee Surgery completed Lizett harden [place] [facility] 03/25/2024 15:29:09 Tubal Ligation completed Lizett elias [place] [facility] 03/25/2024 15:29:28 Imaging Results Imaging Date Name Status LastModified by Organization Details LastModified Time 08/19/2024 xr chest Pa or AP 1V completed [email or web address] [place] [address], [place], [address], 08/19/2024 08:35:01 08/19/2024 XR, chest completed [email or web address], [place], [address], 08/19/2024 18:49:54 08/20/2024 ECG 12-lead completed [email or web address], [place], [address], 08/20/2024 18:19:08 09/02/2024 ECG 12-lead completed [email or web address], [place], [address], 09/03/2024 16:04:06 09/02/2024 ECG 12-lead completed [email or web address], [place], [address], 09/03/2024 16:04:07 09/13/2024 XR, chest completed [email or web address], [place], [address], 09/16/2024 18:14:00 09/14/2024 ECG 12-lead completed [email or web address], [place], [address], 09/16/2024 18:14:01 09/14/2024 ECG 12-lead completed [email or web address] [address], [place], [address], 09/16/2024 18:14:01 10/21/2024 XR, chest completed [email or web address], [address], 10/22/2024 08:16:12 10/23/2024 ECG 12-lead completed [email or web address], [address], 10/23/2024 08:15:34 10/23/2024 ECG 12-lead completed [email or web address], [address], 10/23/2024 08:15:35 08/31/2022 US, echocardiogram, transthoracic, complete, w/ color flow completed [facility] Information not available 11/05/2024 17:43:04 12/16/2022 lexiscan cardiolite stress test (PROC) completed [facility] Information not available 11/05/2024 17:43:04 02/07/2023 imaging/diagnostic result completed [facility] Information not available 11/05/2024 17:43:04 08/22/2023 US, echocardiogram, transthoracic, complete, w/ color flow completed [facility] Information not available 11/05/2024 17:43:04 10/21/2024 electrocardiogram completed [facility] Informa tion not available 11/05/2024 17:43:04 12/01/2024 XR, chest completed [email or web address] [place] [address], [address], 12/02/2024 08:49:20 12/02/2024 ECG 12-lead completed [email or web address] [facility] [address], [address], 12/02/2024 11:03:58 12/02/2024 ECG 12-lead completed [address], [address], 12/02/2024 11:03:58 12/02/2024 xr ABD KUB completed [address], [address], 12/02/2024 18:40:20 12/02/2024 use echocardiogram completed [address], [address], 12/03/2024 08:30:28 12/06/2024 US, abdomen, limited completed [address], [address], 12/06/2024 15:13:58 12/07/2024 CT chest+ABD+pel W con completed [address], [address], 12/09/2024 17:31:29 12/09/2024 US gd paracent W imaging completed [address], [address], 12/09/2024 17:31:29 Procedure Notes None recorded. Medical Equipment None Reported. Allergies Allergen ID Allergen Name Allergen Category Reaction Reaction Severity Criticality Documentation Date Start Date Code Code System Note Provider Name and Address Organization Details Recorded Time [id number] 2824e sulfameth oxazole / trimethop rim medicatio n Not available Not available Not available 03/25/2024 76626 RxNorm Not Available Not Available Not Available [id number] 2824e codeine medicatio n Not available Not available Not available 03/25/2024 2670 RxNorm Not Available Not Available Not Available [id number] 2824e azithromy gabby medicatio n Not available Not available Not available 05/24/2024 57395 RxNorm Not Available Not Available Not Available Medications Name Sig Start Date Stop Date Status Note LastModified by Organization Details LastModified Time Miralax 17 gram oral powder packet Take 1 packet every day by oral route. 2023 active Not Available Not Available Not Avai lable furosemide 40 mg tablet TAKE 1 TABLET BY MOUTH EVERY DAY 10/14 completed Not Available Not Available Not Available atorvastati n 40 mg tablet Take 1 tablet every day by oral route for 90 days. 06/25 completed Not Available Not Available Not Available carvedilol 6.25 mg tablet Take 1 tablet every day by oral route. 10/30 completed Not Available Not Available Not Available atorvastati n 20 mg tablet 06/25 completed Not Available Not Available Not Available donepezil 5 mg tablet TAKE 1 TABLET BY MOUTH AT BEDTIME 10/14 completed Not Available Not Available Not Available bumetanide 2 mg tablet Take 1 tablet twice a day by oral route for 90 days. 10/14 completed Not Available Not Available Not Available azithromyci n 250 mg tablet TAKE 2 TABLETS (500 MG) BY ORAL ROUTE ONCE DAILY FOR 1 DAY THEN 1 TABLET (250 MG) BY ORAL ROUTE ONCE DAILY FOR 4 DAYS 05/24 completed Not Available Not Available Not Available ibuprofen 800 mg tablet take 1 tablet 3 times daily as needed for 30 days active Not Available Not Available No t Available lisinopril 20 mg tablet Take 1 tablet every day by oral route for 90 days. 10/14 completed Not Available Not Available Not Available ondansetron HCl 4 mg tablet 10/14 completed Not Available Not Available Not Available metolazone 5 mg tablet Take 1 tablet every day by oral route for 90 days. 07/19 completed Not Available Not Available Not Available fexofenadin e 180 mg tablet Take 1 tablet every day by oral route. 2023 active Not Available Not Available Not Avai lable aspirin 81 mg tablet,taiwo yed release Take 1 tablet every day by oral route. 2023 active Not Available Not Available Not Avai lable amoxicillin 500 mg tablet 05/24 completed Not Available Not Available Not Available carvedilol 3.125 mg tablet Take 1 tablet twice a day by oral route. active Not Available Not Available No t Available Synthroid 175 mcg tablet Take 1 tablet every day by oral route for 90 days. active Not Available Not Available No t Available Tessalon Perles 100 mg capsule Take 1 capsule 3 times a day by oral route as needed. 06/25 completed Not Available Not Available Not Available amoxicillin 875 mg tablet TAKE 1 TABLET BY MOUTH EVERY 12 HOURS active Not Available Not Available No t Available cephalexin 500 mg capsule TAKE 1 CAPSULE BY MOUTH THREE TIMES DAILY FOR 10 DAYS 10/14 completed Not Available Not Available Not Available nitrofurant oin macrocrysta l 100 mg capsule Take 1 capsule twice a day by oral route for 7 days. 10/14 completed Not Available Not Available Not Available folic acid 1 mg tablet TAKE 1 TABLET BY MOUTH ONCE DAILY active Not Available Not Available No t Available montelukast 10 mg tablet Take 1 tablet every day by oral route. active Not Available Not Available No t Available mupirocin 2 % topical ointment APPLY A SMALL AMOUNT TO THE AFFECTED AREA BY TOPICAL ROUTE once PER DAY active Not Available Not Available No t Available furosemide 20 mg tablet active Not Available Not Available Not Available gabapentin 100 mg capsule Take 1 capsule every day by oral route at bedtime. active Not Available Not Available No t Available metolazone 10 mg tablet active Not Available Not Available Not Available methylpredn isolone 4 mg tablets in a dose pack 05/24 completed Not Available Not Available Not Available ondansetron 4 mg disintegrat ing tablet Place 1 tablet 3 times a day by transling ual route as needed. 10/14 completed Not Available Not Available Not Available amoxicillin 875 mg-potassiu m clavulanate 125 mg tablet Take 1 tablet every 12 hours by oral route for 5 days. active Not Available Not Available No t Available Ventolin HFA 90 mcg/actuati on aerosol inhaler INHALE 2 PUFFS BY MOUTH EVERY 4 HOURS NEEDED 2023 active Not Available Not Available Not Avai lable rosuvastati n 20 mg tablet Take 1 tablet every day by oral route. 10/14 completed Not Available Not Available Not Available levalbutero l HFA 45 mcg/actuati on aerosol inhaler INHALE 2 PUFFS BY MOUTH EVERY 6 HOURS active Not Available Not Available No t Available sodium chloride 1,000 mg soluble tablet TAKE 1 TABLET BY MOUTH THREE TIMES DAILY 10/14 completed Not Available Not Available Not Available aripiprazol e 2 mg tablet TAKE 1 TABLET BY MOUTH ONCE DAILY active Not Available Not Available No t Available Symbicort 160 mcg-4.5 mcg/actuati on HFA aerosol inhaler INHALE 2 PUFFS BY MOUTH TWICE DAILY active Not Available Not Available No t Available Kenalog-80 80 mg/mL suspension for injection Take 60 mg by injection route. 06/25 completed Not Available Not Available Not Available Vitals Date Recorded Body height Provider Name an d Address Organization Details Last Updated DateTime 06/25/2024 162.56 cm Anamika Strong MA [facility] 06/25/20 24 15:22:09 Date Recorded Body mass index (BMI) Body weight Provider Name and Address Organization Details Last Updated DateTime 06/25/2024 33.9 kg/m2 52250.5 g Anamika Strong MA [facility] 06/25/2024 15:22:18 Date Recorded Body height Provider Name an d Address Organization Details Last Updated DateTime 07/19/2024 162.56 cm Anamika Strong MA [facility] 07/19/20 24 13:03:04 Date Recorded Body mass index (BMI) Body weight Provider Name and Address Organization Details Last Updated DateTime 07/19/2024 38.8 kg/m2 622881.28 g Anamika Strong MA [facility] 07/19/2024 13:03:34 Date Recorded Body height Provider Name an d Address Organization Details Last Updated DateTime 07/25/2024 162.56 cm Lizett Mckay MA [facility] 09/05/2 024 11:53:47 Date Recorded Body mass index (BMI) Body weight Provider Name and Address Organization Details Last Updated DateTime 07/25/2024 37.7 kg/m2 15403.83 g Lizett Mckay MA [facility] 07/25/2024 11:58:36 Date Recorded Oxygen saturation Oxygen saturation in Arterial blood by Pulse oximetry Provider Name and Address Organization Details Last Updated DateTime 07/25/2024 97 % 97 % Lizett Mckay MA [facility] 07/25/2024 11:59:39 Date Recorded Heart rate Provider Name an d Address Organization Details Last Updated DateTime 07/25/2024 75 /min Lizett Mckay MA [facility] 11:59:42 Date Recorded Respiratory rate Provider Name a nd Address Organization Details Last Updated DateTime 07/25/2024 16 /min Lizett Mckay MA [facility] 12:00:05 Date Recorded Body height Provider Name an d Address Organization Details Last Updated DateTime 09/04/2024 162.56 cm Angela Timmons MA [facility] 2023 17:09:06 Date Recorded Body mass index (BMI) Body weight Provider Name and Address Organization Details Last Updated DateTime 09/04/2024 34 kg/m2 27166.29 g Angela Timmons MA [facility] 09/04/2024 17:18:59 Date Recorded Oxygen saturation Oxygen saturation in Arterial blood by Pulse oximetry Provider Name and Address Organization Details Last Updated DateTime 09/04/2024 92 % 92 % Angela Timmons MA [facility] 09/04/2024 17:19:04 Date Recorded Heart rate Provider Name an d Address Organization Details Last Updated DateTime 09/04/2024 65 /min Angela Timmons MA [facility] 2023 17:19:07 Date Recorded Body height Provider Name an d Address Organization Details Last Updated DateTime 10/30/2024 162.56 cm Juanita Billingsley MA [facility] 10/30/20 13:56:19 Date Recorded Oxygen saturation Oxygen saturation in Arterial blood by Pulse oximetry Provider Name and Address Organization Details Last Updated DateTime 10/30/2024 70 % 70 % Juanita Billingsley MA [facility] 10/30/2024 13:56:27 Date Recorded Heart rate Provider Name an d Address Organization Details Last Updated DateTime 10/30/2024 69 /min Juanita Billingsley MA [facility] 10/30/20 13:56:32 Date Recorded Systolic blood pressure Diastolic blood pressure Provider Name and Address Organization Details Last Updated DateTime 06/25/2024 132 mm[Hg] 76 mm[Hg] Rizwana Herring DO Attn: [address]ing,[address] [place], [address], [facility] 06/25/2024 15:40:39 Date Recorded Systolic blood pressure Diastolic blood pressure Provider Name and Address Organization Details Last Updated DateTime 07/19/2024 132 mm[Hg] 80 mm[Hg] Rizwana Herring DO Attn: [address]ing[address] [place], [address], [facility] 07/19/2024 13:20:39 Date Recorded Systolic blood pressure Diastolic blood pressure Provider Name and Address Organization Details Last Updated DateTime 07/25/2024 124 mm[Hg] 64 mm[Hg] Rizwana Herring DO Attn: Accounting[address] [place], [address], [facility] 07/25/2024 12:31:33 Date Recorded Systolic blood pressure Diastolic blood pressure Provider Name and Address Organization Details Last Updated DateTime 09/04/2024 132 mm[Hg] 82 mm[Hg] Rizwana Herring DO Attn: Accounting[address] [place], [address], [facility] 09/04/2024 18:31:21 Date Recorded Systolic blood pressure Diastolic blood pressure Provider Name and Address Organization Details Last Updated DateTime 10/30/2024 116 mm[Hg] 56 mm[Hg] Rizwana Herring DO Attn: Accounting[address] [place], [address], [facility] 10/30/2024 14:26:50 Social History Question Answer Notes LastModified by Organizat ion Details LastModified Time Tobacco Smoking Status Current Every Day Smoker Lizett Mckay MA [facility] 03/25/2024 15:33:59 What Is Your Level Of Alcohol Consumption? None Information not available 03/25/2024 What Is Your Level Of Caffeine Consumption? Occasional Information not available 03/25/2024 What Was The Date Of Your Most Recent Tobacco Screening? 10/30/2024 Information not available 10/30/2024 How Much Tobacco Do You Smoke? 0.5 PPD [email or web address] Information not available 05/24/2024 Do You Use Any Illicit Or Recreational Drugs? No Information not available 03/25/2024 Has Tobacco Cessation Counseling Been Provided? Yes Information not available 03/25/2024 On What Date Was Tobacco Cessation Counseling Provided? 10/30/2024 Information not available 10/30/2024 Do You Or Have You Ever Used Any Other Forms Of Tobacco Or Nicotine? No Information not available 03/25/2024 Sex: Female Functional Status None recorded. Mental Status None recorded. Family History Relationship Description Onset Age of this Age Resolved Age Notes LastModified by Organization Details LastModified Time Father Diabetes mellitus [email or web address] Not available 2023 15:31:22 Father Hypertensive disorder [email or web address] Not available 2023 15:31:38 Mother Diabetes mellitus [email or web address] Not available 2023 15:31:22 Mother Hypertensive disorder [email or web address] Not available 2023 15:31:38 Brother Hypertensive disorder [email or web address] Not available 2023 15:31:38 Medical History Condition Response Coronary Artery Disease N Other N High Blood Pressure Y Atrial Fibrillation N Thyroid Problems Y Kidney or Bladder Problems Y GI Problems N Depression N COPD Y Blood Clots N Skin Problems N Eating Disorder N Anemia N Heart Attack (PA) N Anxiety Disorder N Diabetes N Muscle, Joint, or Bone Problems N Arthritis N Seizures/Epilepsy N Acid Reflux (GERD) Y Cancer N Stroke N Asthma N Allergies Y ADHD N Substance Abuse N High Cholesterol Y Hepatitis N Liver Disease N Schizophrenia N Headaches Y Heart Failure Y Osteoporosis N Gynecological HistoryNo gynecological history recorded. Obstetrics History GPAL:G 0 P 0 0 0 0 Past Encounters Encounter ID Performer Location Encounter Start Date Encounter Closed Date Diagnosis/Indication Diagnosis SNOMED-CT Code Diagnosis ICD10 Code Diagnosis Note [id number] KE PERDUE NP Juan Carlos galvania [address] [place] [address] 10/30/2020 14:00:33 11/02/2020 10:34:24 Exposure to SARS-CoV-2 125753623 Z20.115 [id number] Rizwana Herring, DO [facility] [place] [facility] [employer] [address] [facility] [address] [place] [address] 03/25/2024 15:01:04 03/25/2024 16:17:18 Hypothyroidism 63725756 E03.9 Yearly TSH free T4 Steatosis of liver 1007 K76.0 Healthy dietPRESSI ON:No acute chest, abdomen or pelvic abnormalit y.Hepatome sima with Cirrhosis. Tiny hepatic hypodensit y almostcert ainly a cyst.Splen ic varices suggesting the presence of portal hypertensi on.Anasarc a.September 2023 Aortic valve stenosis 60 517391 I35.0 Obesity 726827600 E66.9 Healthy dietWeight lossDiscus sed with patient Smoker 14349582 F17.200 Recommend smoking cessationD iscussed with patient Vitamin D deficiency 347 45312 E55.9 OTC Cardiomyopathy 54976023 I42.9 Acute on chronic congestive heart failure with reduced ejection fractionBu blaise 2 mg bidtake both tablest in amshe is sleeping poorly due to frequent urination at night Coronary arteriosclerosis 95958411 I25.10 Aspirin 81 mg dailyAtorv astatin 40 mg dailyCoreg 6.25 mgRecommen d smoking cessation Peripheral vascular disease 935411151 I73.9 Aspirin 81 mg dailyAtorv astatin 40 mg dailyRecom mend smoking cessationM PRESSION:1 . Right lower extremity: Mild to moderate stenosis of the pelvicvess els and moderate to severe stenosis of the superficia l femoralart sarika. Three-vess el runoff distally2. Left lower extremity: Moderate stenosis of the pelvic vesselswit h three-vess el runoff distally.2 023 Nodule of lung 753060338 R91.[address] of the chest unremarkab le Hyperglycemia 89033207 R 73.9 Routine blood workHealth y diet Hyperlipidemia 91946352 E78.5 Atorvastat in/Lipitor 40 mg dailyStabl e Essential hypertension 07639671 I10 Lisinopril 20 mg dailyStabl e Cobalamin deficiency 190 810536 E53.8 B12 1000 mcg/mL injectionS tablecheck a b 12 level Gastroesop hageal reflux disease without esophagitis 844583107 K21.9 Omeprazole /sodium bicarbonat e 40-1.1 mgStable Chronic constipation 236 155567 K59.09 add miralax 17 gm po daily Seasonal allergy 1574356 04 J30.2 add kenalog 60 mg [facility] [id number] Marisela Dunne RN [facility] [place] [facility] [employer] [address] [place] [address] 05/24/2024 16:00:57 05/24/2024 17:07:56 Cardiomyopathy 54825101 I42.9 Acute on chronic congestive heart failure with reduced ejection fractionBu blaise 2 mg bidtake both in amshe is sleeping poorly due to frequent urination at night Chronic constipation 236 031751 K59.09 added miralax 17 gm po daily Coronary arteriosclerosis 23055901 I25.10 Aspirin 81 mg dailyAtorv astatin 40 mg dailyCoreg 6.25 mgRecommen d smoking cessation Obesity 098847082 E66.9 Healthy dietWeight lossDiscus sed with patient Smoker 47150310 F17.200 Recommend smoking cessationD iscussed with patient Chronic rhinitis 5279709 6 J31.0 add montelukas t 10 mg daily [id number] Rizwana Herring DO [facility] [employer] [facility] [place] [facility] [employer] [address] [place] [address] 06/25/2024 15:02:02 06/25/2024 16:00:22 Cardiomyopathy 15772653 I42.9 Acute on chronic congestive heart failure with reduced ejection fractionBu blaise 2 mg bidtake both in amshe is sleeping poorly due to frequent urination at nightwill see cardiology in Sep 2024 Chronic constipation 236 453376 K59.09 added miralax 17 gm po dailychron ic conditiond oing better Coronary arteriosclerosis 37256797 I25.10 Aspirin 81 mg dailyAtorv astatin 40 mg dailyCoreg 6.25 mgRecommen d smoking cessation Gastroesop hageal reflux disease without esophagitis 982844421 K21.9 Omeprazole /sodium bicarbonat e 40-1.1 mgStable Hyperlipidemia 55638834 E78.5 Atorvastat in/Lipitor 40 mg dailynot at goalswitch to rosuvastat in 20 mglegs are hurting check a cpk Obesity 601954786 E66.9 Healthy dietWeight lossDiscus sed with patientnot at goal Smoker 38031010 F17.200 Recommend smoking cessationD iscussed with patient Seasonal allergy 0939195 04 J30.2 stable Essential hypertension 92358268 I10 Lisinopril 20 mg dailyStabl e Pain in lower limb 20588 006 M79.285 [id number] [facility] [place] [facility] [address] [facility] [address] [place] [address] 07/19/2024 13:00:08 07/20/2024 09:54:41 Cardiomyopathy 30688483 I42.9 Acute on chronic congestive heart failure with reduced ejection fractionBu blaise 2 mg bidtake both in amshe is sleeping poorly due to frequent urination at nightwill see cardiology in Sep 2024will add lasix lasix 40 mg dailydaily weightorde r cbcchem 7bnpeGFRif any sobto ER also has small open wound posterior left calfadd bactroban discussed ERwill weigh daily Essential hypertension 58035533 I10 Lisinopril 20 mg dailyStabl e Obesity 139703392 E66.9 Healthy dietWeight lossDiscus sed with patientnot at goal Smoker 21901465 F17.200 Recommend smoking cessationD iscussed with patient [id number] Rizwana Herring, [facility] [place] [facility] [address] [facility] [address] [place] [address] 07/25/2024 11:38:46 07/25/2024 12:49:14 Obesity 520913329 E66.9 Healthy dietWeight lossDiscus sed with patientnot at goal Essential hypertension 30703844 I10 Lisinopril 20 mg dailyStabl e Cardiomyopathy 39742938 I42.9 Acute on chronic congestive heart failure with reduced ejection fractionBu blaise 2 mg bidtake both in amshe is sleeping poorly due to frequent urination at nightwill see cardiology in Sep 2024will add lasix lasix 40 mg dailydaily weightdoin g betterlosi ng weightrech bird lab Hypothyroidism 52803476 E03.9 Yearly TSH free T4 Smoker 58719192 F17.200 Recommend smoking cessationD iscussed with patient [id number] Rizwana Herring DO [facility] [place] [facility] [address] [facility] [address] [facility] [place] [address] 09/04/2024 16:45:01 09/05/2024 12:30:02 Post-discharge follow-up [id number] Z09 severe hyponatrem ia na 104chart reviewed Altered mental status 41 [id number] R41.82 was arrested recentlyha s been having mental status changes per familywill recommend [facility] / ER [id number] Rizwana Herring DO [facility] [place] [facility] [address] [facility] [address] [place] [address] 10/30/2024 13:52:20 10/30/2024 14:45:58 Cardiomyopathy [id number] I42.9 chronic congestive heart failureis on lasix 80 mg bidwill refer to Dr. Moore /[place] a new echo cardiogram order labBNP Coronary arteriosclerosis [id number] I25.10 Aspirin 81 mg dailyAtorv astatin 40 mg dailyCoreg 6.25 mgRecommen d smoking cessation Essential hypertension [id number] I10 decrease carvedilol to 3.125 mg bid Smoker 60907503 F17.200 Recommend smoking cessationD iscussed with patientord er pft Chronic pain [id number] G8 9.29 legsadd gabapentin 100 mg at hs Health Concerns Section Related Observation LastModified by Organization Detai ls LastModified Time None Recorded Concern Status LastModified by Organization Details LastModified Time None Recorded Advance Directives Directive None Recorded Payers Encounter Date Sequence Insurance Name Policy Number Policy Bhandari Covered Member ID Bhandari Member ID Guarantor Name 06/25/2024 1 [facility] (MEDICAID REPLACEMENT - HMO) [id number] Zenia Cody [id number] Zenia Cody 07/19/2024 1 [facility] (MEDICAID REPLACEMENT - HMO) [id number] Zenia Cody [id number] Zenia Cody 07/25/2024 1 [employer] (MEDICAID REPLACEMENT - HMO) [id number] Zenia Cody [id number] Zenia Cody 09/04/2024 1 [place] [facility] [facility] (MEDICAID REPLACEMENT - [place]MO) [id number] Zenia Cody [id number] Zenia Cody 10/30/2024 1 [facility] [facility] (MEDICAID REPLACEMENT - HMO) [id number] Zenia Cody [id number] Zenia Cody Notes Date Note Type Note Provider Name and Address Organization Details Recorded Time 06/25/2024 text/html routine follow-u p for multiple medical conditions Rizwana Herring DO Attn: Accounting,204 1 [facility], [place], [place], [address] [place] [address], [place] [facility] 06/25/2024 18:36:55 07/19/2024 text/html has had swelling in legshas gained approx 30 pounds in past 24 daysno sob Rizwana Herring DO Attn: Accounting,204 1 [facility], [place], [place], [address] [place] [address], [place] [facility] 07/19/2024 14:22:34 07/25/2024 text/html follow up CHFdoi ng better losing weight Rizwana Herring DO Attn: Accounting,204 1 [facility], [place], [place], [address] [place] [address], [place] [facility] 07/25/2024 17:19:27 09/04/2024 text/html hospital follow uphas had hyponatremia Rizwana Herring DO Attn: Accounting,204 1 [facility], [place], [place], [address] [place] [address], [place] [facility] 09/04/2024 19:24:06 10/30/2024 text/html post discharge follow uphas been having swollen legsis on lasix 80 mg bidlegs hurt to touch Rizwana Herring DO Attn: Accounting,204 1 [facility], [place], [place], [address] [place] [address], [place] [facility] 10/30/2024 15:23:24 OBGyn Episode No OBEpisode recorded.
--- OUTSIDE RECORDS SUMMARY | 2024-12-19 21:07 | XMS_ITS | Clinical Summary ---
Author Organization [facility] Address [address] [place] [address]. 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 Indications: Vitamin and/or Mineral Deficiency Active albuterol sulfate HFA 108 (90 Base) MCG/ACT inhalerIndicat ions:Shortness of breath Inhale 2 puffs into the lungs every 4 (four) hours as needed for Wheezing or Shortness of breath. Indications: Shortness of breath Active aspirin EC (ECOTRIN) 81 MG tabletIndicati ons:Prophylaxi s Take 1 tablet by mouth daily. Indications: Preventative Treatment Active gabapentin (NEURONTIN) 100 MG capsuleIndicat ions:Neuropath ic Pain Take 1 capsule by mouth nightly at bedtime. Indications: Neuropathic Pain 10/30/20 24 Active carvedilol (COREG) 3.125 MG tabletIndicati ons:Congestive Heart Failure Take 1 tablet (3.125 mg total) by mouth 2 (two) times daily. Indications: Congestive Heart Failure 60 tablet 12/10/19 25 Active furosemide (LASIX) 40 MG tabletIndicati ons:Congestive Heart Failure Take 1 tablet (40 mg total) by mouth every evening. Indications: Congestive Heart Failure 30 tablet 12/10/19 25 Active furosemide (LASIX) 80 MG tabletIndicati ons:Congestive Heart Failure Take 1 tablet (80 mg total) by mouth daily. Indications: Congestive Heart Failure 30 tablet 12/11/19 25 Active levothyroxine (SYNTHROID) 175 MCG tabletIndicati ons:Hypothyroi dism Take 1 tablet (175 mcg total) by mouth daily. Indications: Underactive Thyroid 30 tablet 12/11/19 25 Active ferrous sulfate EC 324 (65 Fe) MG tabletIndicati ons:Iron Deficiency Anemia Take 1 tablet (324 mg total) by mouth every other day. Indications: Anemia From Inadequate Iron in the Body 30 tablet 12/12/19 25 Active cefdinir (OMNICEF) 300 MG Cap capsuleIndicat ions:Urinary Tract Infection Take 1 capsule (300 mg total) by mouth 2 (two) times daily. Indications: Urinary Tract Infection 20 capsule 12/10/19 25 Active spironolactone (ALDACTONE) 100 MG tabletIndicati ons:Congestive Heart Failure Take 1 tablet (100 mg total) by mouth daily. Indications: Congestive Heart Failure 30 tablet 12/11/19 25 Active carvedilol (COREG) 6.25 MG tablet Take 1 tablet (6.25 mg total) by mouth 2 (two) times daily. Discontinu ed(Error) levothyroxine (SYNTHROID) 175 MCG tablet Take 1 tablet (175 mcg total) by mouth every morning. Only takes name brand Synthroid Discontinu ed(Stop Taking at Discharge) montelukast (SINGULAIR) 10 MG tablet Take 1 tablet (10 mg total) by mouth daily as needed (allergies). Discontinu ed(Error) fexofenadine (RAMSES) 180 MG tablet Take 1 tablet (180 mg total) by mouth nightly as needed for Allergies. Discontinu ed(Stop Taking at Discharge) sodium chloride 1 GM tablet Take 1 tablet (1 g total) by mouth 3 (three) times daily. Discontinu ed(Stop Taking at Discharge) polyethylene glycol (GLYCOLAX) packet Take 240 mLs (17 g total) by mouth daily as needed for Constipation. Dissolve powder in 240 mL water 025 Discontinu ed(Stop Taking at Discharge) furosemide (LASIX) 20 MG tablet Take 1 tablet (20 mg total) by mouth daily. 10 tablet 10/21/20 24 025 Discontinu ed(Stop Taking at Discharge) lisinopril (PRINIVIL) 20 MG tablet Take 1 tablet (20 mg total) by mouth daily. 08/05/20 025 Discontinu ed(Error) metOLazone (ZAROXOLYN) 10 MG tablet Take 1 tablet (10 mg total) by mouth daily. 11/30/19 025 Discontinu ed(Stop Taking at Discharge) carvedilol (COREG) 3.125 MG tablet Take 1 tablet (3.125 mg total) by mouth 2 (two) times daily. 10/30/20 025 Discontinu ed(Stop Taking at Discharge) levothyroxine (SYNTHROID) 175 MCG tablet Take 1 tablet (175 mcg total) by mouth every morning. Only takes Brand Name Synthroid 025 Discontinu ed(Error) polyethylene glycol (GLYCOLAX) packetIndicati ons:Constipati on Take 240 mLs (17 g total) by mouth 2 (two) times daily for 7 days. Indications: Constipation Dissolve powder in 240 mL water 14 each 12/10/19 025 Active Problems Problem Noted Date Diagnosed Date CHF (congestive heart failure) ([facility]) 12/01/2024 Hyponatremia 08/18/2024 Chronic constipation 03/25/2024 Cobalamin deficiency 01/16/2024 Gastroesophageal reflux disease without esophagi tis 01/16/2024 Hyperglycemia 01/16/2024 Altered mental status, unspe cified altered mental status type 09/25/2023 Chronic heart failure with p reserved ejection fraction ([facility]) 09/14/2023 Coronary artery disease invo lving iroquois coronary artery of iroquois heart without angina pectoris 03/10/2023 H/O cardiomyopathy 03/10/2023 Mixed hyperlipidemia 03/10/2023 PAD (peripheral artery disease) 03/10/2023 Acute non-recurrent frontal sinusitis 01/20/2023 Abnormal stress test 01/02/2023 Abnormal echocardiogram 11/23/2022 Acute on chronic HFrEF (hear t failure with reduced ejection fraction) ([facility]) 11/23/2022 Cardiomyopathy ([facility]) 11/23/2022 Hepatic steatosis 08/11/2022 Allergic rhinitis 12/03/2021 Dyspnea on exertion 12/20/2017 Finding of above normal blood pressure 7 Obesity 11/01/2017 Fatigue 10/31/2017 History of multiple allergies 10/31/2017 Chronic sinusitis 10/25/2017 History of tubal ligation 10/25/2017 Osteoarthrosis 10/25/2017 Other specified hypothyroidism 10/25/2017 Overview (12/02/2024): Last Assessment & Plan: Routine lab Aortic valve defect 10/17/2017 Aortic valve stenosis 10/17/2017 Resolved Problems Problem Noted Date Diagnosed Date Resolved Date Annual physical exam 12/04/2020 025 Encounters Date Type Department Care Team Description 12/18/2024 10:00 AM YARN SPOOLER Home Care Visit [address] [address] Jennifer Oliveira, HARVEY SN HOME VISIT 12/17/2024 11:00 AM YARN SPOOLER Home Care Visit [address] [address] Macario Perez, PT CASE COMMUNICATION 12/17/2024 Home Care Visit [address] [address] Malou Burger, OT CASE COMMUNICATION 12/15/2024 Home Care Visit [address] [address] Malou Burger, OT CASE COMMUNICATION 12/11/2024 4:15 PM YARN SPOOLER Home Care Visit [address] [address] Tod Lewis, PT CASE COMMUNICATION 12/11/2024 9:15 AM YARN SPOOLER Home Care Visit [facility] [address] [place] [address] [place] [address] Misti Shell, RN SN OASIS START OF CARE 12/11/2024 Home Care Visit [facility] [address] [place] [address] [place] [address] Misti Shell RN COCIM COORD OF CARE INTERDISCIPLINARY MTG 12/11/2024 Hospital Follow-up Call [facility] [place] [address] Rhiannon Alexander LPN Follow Up Call (MARCELINO 12/01-12/10/24) 12/11/2024 Plan of Care Documentation [address] [place] [address] [place] [address] 12/04/2024 10:00 AM YARN SPOOLER Home Care Visit [address] [address] Linette Cueva RN LIAISON VISIT 12/01/2024 6:48 PM YARN SPOOLER - 12/10/2024 1:24 PM YARN SPOOLER Hospital Encounter [facility] Med/Surg [address] [place] [address] Yash Sheth PA-C Elayyan, Ibrahim B, MD Dodt, Darah R, Rissa Loredo PA-C Littlejohn, Mary C, TANA Abdominal Distention Discharge Disposition: Home with Home Health Care 12/01/2024 Travel 10/21/2024 7:39 PM YARN SPOOLER - 10/21/2024 9:49 PM YARN SPOOLER Emergency [facility] [place] [address] Griselda Devi MD Leg Swelling Discharge Disposition: Home or Self Care (Routine Discharge) 10/21/2024 Travel from Last 3 Months Immunizations Name Administration Dates Next Due Fluzone (IIV3, Trivalent, 0. 5 ML Prefilled Syringe) 08/22/2024(Deferred: Patient/family declined) Social History Tobacco Use Types Packs/Day Years Used Date Smoking Tobacco: Every Day Cigarettes Smokeless Tobacco: Never Tobacco Cessation:Ready to Q uit: Not Asked; Counseling Given: Not Answered Alcohol Use Standard Drinks/Week Comments Not Currently 0 (1 standard drink = 0.6 oz pur e alcohol) OASIS D0700: Social Isolation Answer Da te Recorded Frequency of experiencing loneliness or isolatio n Often 12/11/2024 OASIS A1250: Transportation Answer Date Recorded Lack of Transportation (Medical) No 12/11/2024 Lack of Transportation (Non-Medical) No 12/11/2024 Patient Unable or Declines to Respond No 12/11/2024 OASIS B1300: Health Literacy Answer Jhonny e Recorded Frequency of needing help to read materials from doctor or pharmacy Never 12/11/2024 B1300 Health Literacy Answer Date Recor ded How often do you need to hav e someone help you when you read instructions, pamphlets, or other written material from your doctor or pharmacy? Rarely 12/01/2024 [employer] Utilities Answer Date Recorded In the past 12 months has [facility] [employer], oil, or water [employer] threatened to shut off services in your home? No 12/01/2024 Humiliation, Afraid, Rape, and Kick questionnair e Answer Date Recorded Within the last year, have y ou been afraid of your partner or ex-partner? No 12/01/2024 Within the last year, have y ou been humiliated or emotionally abused in other ways by your partner or ex-partner? No Within the last year, have y ou been kicked, hit, slapped, or otherwise physically hurt by your partner or ex-partner? No 12/01/2024 Within the last year, have y ou been raped or forced to have any kind of sexual activity by your partner or ex-partner? No 12/01/2024 Social Connection and Isolat ion Panel [NHANES] Answer Date Recorded In a typical week, how many times do you talk on the phone with family, friends, or neighbors? More than three times a week 12/01/2024 How often do you get togethe r with friends or relatives? More than three times a week 12/01/2024 How often do you attend chur ch or episcopalian services? More than 4 times per year 12/01/2024 Do you belong to any clubs o r organizations such as synagogue groups, unions, fraternal or athletic groups, or school groups? Yes 12/01/2024 How often do you attend meet ings of the clubs or organizations you belong to? More than 4 times per year 12/01/2024 Are you , , di vorced, , never , or living with a partner? 12/01/2024 AUDIT-C Answer Date Recorded Q1: How often do you have a drink containing alcohol? Never 12/01/2024 Q2: How many drinks containi ng alcohol do you have on a typical day when you are drinking? Patient does not drink Q3: How often do you have si x or more drinks on one occasion? Never 12/01/2024 Overall Financial Resource Strain (CARDIA) Answe r Date Recorded How hard is it for you to pa y for the very basics like food, housing, medical care, and heating? Not hard at all 12/01/2024 [facility] Occupat [facility] - Occupational Stress Questionnaire Answer Date Recorded Do you feel stress - tense, restless, nervous, or anxious, or unable to sleep at night because your mind is troubled all the time - these days? To some extent 12/01/2024 Exercise Vital Sign Answer Date Recorde d On average, how many days pe r week do you engage in moderate to strenuous exercise (like a brisk walk)? 0 days 12/01/2024 On average, how many minutes do you engage in exercise at this level? 0 min 12/01/2024 Hunger Vital Sign Answer Date Recorded Within the past 12 months, y ou worried that your food would run out before you got the money to buy more. Never true 12/01/19 25 Within the past 12 months, t he food you bought just didn't last and you didn't have money to get more. Never true 12/01/2024 PRAPARE - Transportation Answer Date Re corded In the past 12 months, has l ack of transportation kept you from medical appointments or from getting medications? No 11/20 In the past 12 months, has l ack of transportation kept you from meetings, work, or from getting things needed for daily living? No 12/01/2024 Housing Stability Vital Sign Answer Jhonny e Recorded In the last 12 months, was t here a time when you were not able to pay the mortgage or rent on time? No 12/01/2024 In the past 12 months, how m any times have you moved where you were living? 0 12/01/2024 At any time in the past 12 m [facility], were you homeless or living in a fpc (including now)? No 12/01/2024 Comments No Sex and Gender Information Value Date Recorded Sex Assigned at Female 12/07/2024 1:56 AM YARN SPOOLER Legal Sex Female 11:16 PM YARN SPOOLER Gender Identity Female 12/07/2024 1:56 AM YARN SPOOLER Sexual Orientation Straight 12/07/2024 1: 56 AM YARN SPOOLER Last Filed Vital Signs Vital Sign Reading Time Taken Comments Blood Pressure 150/50 12/18/2024 9:57 AM YARN SPOOLER Pulse 84 12/18/2024 9:57 AM YARN SPOOLER Temperature 36.8 ??C (98.2 ??F) 12/18/2024 9:57 AM CS T Respiratory Rate 20 12/18/2024 9:57 AM YARN SPOOLER Oxygen Saturation 96% 12/18/2024 9:57 AM YARN SPOOLER Inhaled Oxygen Concentration - - Weight 103.4 kg (227 lb 15.3 oz) 12/04/2024 5:07 AM YARN SPOOLER Height 165.1 cm (5' 5 ) 12/01/2024 10:1 6 PM YARN SPOOLER Body Mass Index 37.93 12/01/2024 10:16 PM YARN SPOOLER Plan of Treatment Upcoming Encounters Date Type Department Care Team (Late st Contact Info) Description 12/20/2024 3:00 PM YARN SPOOLER Home Care Visit [facility] [address] [place], [place] [id number] Macario Perez, PT [address] [facility] [place] [address] 12/25/2024 9:00 AM YARN SPOOLER Home Care Visit [facility] [address] [place], [place] [id number] Misti Shell, RN Health Maintenance Due Date Last Done Comments ASCVD LDL 1968 ASCVD Statin 1968 Cervical Cancer Screening Pap Smear (Age 30 to 64) Every 3 Years 1968 Colorectal Cancer Screening Colonoscopy (10 Years) 1968 Annual Physical 02/16/1971 Pneumococcal Vaccine: Pediatrics (0 to 5 Years) and At-Risk Patients (6 to 64 Years) (1 of 2 - PCV) 02/16/1974 DTaP, Tdap and Td Vaccines (1 - Tdap) 02/16/1987 Hepatitis B Vaccines (1 of 3 - 19+ 3-dose series) 02/16/1987 Cervical Cancer Screening Pap with HPV Testing (Age 30 to 64) Every 5 Years 02/16/1998 Cervical Cancer Screening with HPV 02/16/1998 Mammogram Screening 2008 Zoster Vaccines (1 of 2) 02/16/2018 COVID-19 Vaccine ( season) 2024 Influenza Adult (#1) 2024 09/06/2023, 10/26/2022, 09/29/2021, Additional history exists Hepatitis C Completed 12/07/2024 Meningococcal B Vaccine Aged Out No l onger eligible based on patient's age to complete this topic Meningococcal Vaccine Aged Out No jaymie harleen eligible based on patient's age to complete this topic RSV Immunizations Under 20 Months Aged Out No longer eligible based on patient's age to complete this topic Goals Goal Patient Goal Type Associated Problems Recent Progress Patient-Stated? 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 Procedure Name Priority Date/Time Associated Diagnosis Comments COMPREHENSIVE METABOLIC PANEL Routine 12/10/2024 7:26 AM YARN SPOOLER CBC W/DIFF AUTOMATED Routine 12/10/2024 7:26 AM YARN SPOOLER US GD PARACENT W IMAGING Routine 12/09/2024 2:14 PM YARN SPOOLER AMYLASE FLUID Routine 12/09/2024 1:30 PM YARN SPOOLER CELL COUNT W/ DIFF BODY FLUID Routine 12/09/2024 1:30 PM YARN SPOOLER ALBUMIN BODY FLUID Routine 12/09/2024 1: 30 PM YARN SPOOLER URINE BACTERIA CULTURE Routine 10:13 AM YARN SPOOLER AMMONIA Routine 12/09/2024 4:55 AM YARN SPOOLER COMPREHENSIVE METABOLIC PANEL Routine 12/09/2024 4:55 AM YARN SPOOLER CBC W/DIFF AUTOMATED Routine 12/09/2024 4:55 AM YARN SPOOLER PROTHROMBIN TIME, VENOUS Routine 12/09/2024 4:55 AM YARN SPOOLER HC URINALYSIS AUTO W/O MICRO Routine 12/08/2024 1:18 PM YARN SPOOLER COMPREHENSIVE METABOLIC PANEL Routine 12/08/2024 6:35 AM YARN SPOOLER COMPREHENSIVE METABOLIC PANEL Routine 12/08/2024 4:30 AM YARN SPOOLER CBC W/DIFF AUTOMATED Routine 12/08/2024 4:30 AM YARN SPOOLER HEPATITIS PANEL,ACUTE Routine 12/07/2024 6:[address] CHEST+ABD+PEL W CON Today 1:39 PM YARN SPOOLER THYROXINE, FREE (FT4) Routine 12/07/2024 5:53 AM YARN SPOOLER FREE T3 Routine 12/07/2024 5:53 AM YARN SPOOLER TSH W/REFLEX Routine 12/07/2024 5:53 AM YARN SPOOLER MAGNESIUM Routine 12/07/2024 5:53 AM YARN SPOOLER COMPREHENSIVE METABOLIC PANEL Routine 12/07/2024 5:53 AM YARN SPOOLER CBC W/DIFF AUTOMATED Routine 12/07/2024 5:53 AM YARN SPOOLER US ABD LIMITED Today 12/06/2024 1:15 PM YARN SPOOLER CBC W/DIFF AUTOMATED STAT 12/06/2024 9:22 AM YARN SPOOLER BASIC METABOLIC PANEL STAT 12/06/2024 9:22 AM YARN SPOOLER BASIC METABOLIC PANEL Routine 12/05/2024 5:10 AM YARN SPOOLER CBC W/DIFF AUTOMATED Routine 12/05/2024 5:10 AM YARN SPOOLER CORTROSYN STIMULATION TIMED 12/04/2024 1:00 PM YARN SPOOLER CORTROSYN STIMULATION Routine 12/04/2024 11:48 AM YARN SPOOLER BASIC METABOLIC PANEL Routine 12/04/2024 3:58 AM YARN SPOOLER CBC W/DIFF AUTOMATED Routine 12/04/2024 3:58 AM YARN SPOOLER CORTISOL AM TIMED 12/03/2024 7:58 AM YARN SPOOLER BASIC METABOLIC PANEL Routine 12/03/2024 5:05 AM YARN SPOOLER CBC W/DIFF AUTOMATED Routine 12/03/2024 5:05 AM YARN SPOOLER VITAMIN B-12 Routine 12/03/2024 5:05 AM YARN SPOOLER IRON SAT PANEL (IRON,IBC,%SAT) Routine 12/03/2024 5:05 AM YARN SPOOLER FOLIC ACID SERUM Routine 12/03/2024 5:05 AM YARN SPOOLER FERRITIN Routine 12/03/2024 5:05 AM YARN SPOOLER SODIUM URINE RANDOM Routine 12/02/2024 6 :00 PM YARN SPOOLER OSMOLALITY, URINE Routine 12/02/2024 6:0 0 PM YARN SPOOLER XR ABD KUB OLIVE 12/02/2024 2:37 PM YARN SPOOLER USE ECHOCARDIOGRAM Today 12/02/2024 10 :11 AM YARN SPOOLER MAGNESIUM Routine 12/02/2024 7:24 AM YARN SPOOLER BASIC METABOLIC PANEL Routine 12/02/2024 7:24 AM YARN SPOOLER CBC W/DIFF AUTOMATED Routine 12/02/2024 7:24 AM YARN SPOOLER OSMOLALITY, URINE Routine 12/01/2024 11: 23 PM YARN SPOOLER SODIUM URINE RANDOM Routine 12/01/2024 1 1:23 PM YARN SPOOLER THYROXINE, FREE (FT4) STAT 12/01/2024 11:20 PM YARN SPOOLER TSH W/REFLEX STAT 12/01/2024 11:20 PM YARN SPOOLER TROPONIN, QUANT STAT 12/01/2024 11:20 PM YARN SPOOLER BASIC METABOLIC PANEL STAT 12/01/2024 11:20 PM YARN SPOOLER OSMOLALITY, BLOOD STAT 12/01/2024 11: 20 PM YARN SPOOLER HC URINALYSIS AUTO W/O MICRO STAT 12/01/2024 7:38 PM YARN SPOOLER PHOSPHORUS, INORGANIC PHOSPHATE Routine 12/01/2024 7:26 PM YARN SPOOLER MAGNESIUM STAT 12/01/2024 7:26 PM YARN SPOOLER PRO-BRAIN NATRIURETIC PEPTIDE STAT 12/01/2024 7:26 PM YARN SPOOLER LIPASE STAT 12/01/2024 7:26 PM YARN SPOOLER TROPONIN, QUANT STAT 12/01/2024 7:26 PM YARN SPOOLER COMPREHENSIVE METABOLIC PANEL STAT 12/01/2024 7:26 PM YARN SPOOLER CBC W/DIFF AUTOMATED STAT 12/01/2024 7:26 PM YARN SPOOLER XR CHEST PORTABLE STAT 12/01/2024 7:0 3 PM YARN SPOOLER ECG 12-LEAD Routine 12/01/2024 6:52 PM YARN SPOOLER CRITICAL CARE Routine 12/01/2024 6:45 PM YARN SPOOLER XR CHEST PORTABLE STAT 10/21/2024 8:0 2 PM YARN SPOOLER ECG 12-LEAD STAT 10/21/2024 7:48 PM YARN SPOOLER PRO-BRAIN NATRIURETIC PEPTIDE STAT 10/21/2024 7:42 PM YARN SPOOLER TROPONIN, QUANT STAT 10/21/2024 7:42 PM YARN SPOOLER COMPREHENSIVE METABOLIC PANEL STAT 10/21/2024 7:42 PM YARN SPOOLER CBC W/DIFF AUTOMATED STAT 10/21/2024 7:42 PM YARN SPOOLER from Last 3 Months Results * (ABNORMAL) COMPREHENSIVE METABOLIC PANEL (12/10/2024 7:26 AM YARN SPOOLER) Only the most recent of7 resultswithin the time period is included. GLUCOSE 114(H) 70 - 99 MG/DL 12/10/2024 8:38 AM YARN SPOOLER [facility] BUN 26(H) 7 - 18 MG/DL 12/10/2024 8:38 AM YARN SPOOLER [facility] CREATININE S/P/B 0.94 0.55 - 1.02 MG/DL 12/10/2024 8:38 AM [facility] SODIUM S/P/B 130(L) 136 - 145 MMOL/L 12/10/2024 8:38 AM [facility] POTASSIUM S/P/B 4.0 3.5 - 5.1 MMOL/L 12/10/2024 8:38 AM [facility] CHLORIDE S/P/B 88(L) 97 - 115 MMOL/L 12/10/2024 8:38 AM [facility] CO2 38.7(H) 21 - 32 MMOL/L 12/10/2024 8:38 AM [facility] CALCIUM S/P/B 9.6 8.5 - 10.1 MG/DL 12/10/2024 8:38 AM [facility] BILIRUBIN TOTAL S/P/B 0.7 0.2 - 1.2 MG/DL 12/10/2024 8:38 AM [facility] Comment: THIS ASSAY IS NOT RECOMMENDED FOR PATIENTS UNDERGOING TREATMENT WITH ELTROMBOPAG DUE TO THE POTENTIAL FOR FALSELY ELEVATED RESULTS. TOTAL PROTEIN S/P/B 7.3 6.4 - 8.2 G/DL 12/10/2024 8:38 AM [facility] ALBUMIN S/P/B 2.9(L) 3.4 - 5.0 G/DL 12/10/2024 8:38 AM [facility] AST 10(L) 15 - 37 U/L 12/10/2024 8:38 AM [facility] ALT 9(L) 14 - 55 U/L 12/10/2024 8:38 AM [facility] ALKALINE PHOSPHATASE S/P/B 97 50 - 136 U/L 12/10/2024 8:38 AM [facility] ANION GAP 3.3 2 - 10 MMOL/L 12/10/2024 8:38 AM [facility] BUN CREATININE RATIO 27.7(H) 6 - 26 12/10/2024 8:38 AM [facility] A/G RATIO 0.7(L) 1.0 - 2.0 RATIO 12/10/2024 8:38 AM [facility] GFR ESTIMATE 71(L) >90 ML/MIN/1.7 3 M2 12/10/2024 8:38 AM [facility] Comment: NOTE: eGFR is not calculated for patients <18 years of age or gender unknown. This is an estimated GFR calculation using the new CKD EPI creatinine equation without race and so does not require a correction factor for race. This estimated GFR should not be used for calculating drug doses. 12/10/2024 7:26 AM YARN SPOOLER [facility] Final Res ult [facility] [address] [place] [address], [place] [phone] * (ABNORMAL) CBC W/DIFF AUTOMATED (12/10/2024 7:26 AM YARN SPOOLER) Only the most recent of11 resultswithin the time period is included. WBC 7.64 4.5 - 11.0 x10'3/uL 12/10/2024 8:21 AM [facility] RBC 4.78 4.20 - 5.40 x10'6/uL 12/10/2024 8:21 AM [facility] HGB 11.3(L) 12.0 - 16.0 G/DL 12/10/2024 8:21 AM [facility] HCT 39.0 38.0 - 48.0 % 12/10/2024 8:21 AM [facility] MCV 81.6 81.0 - 99.0 FL 12/10/2024 8:21 AM [facility] MCH 23.6(L) 27.0 - 31.0 PG 12/10/2024 8:21 AM [facility] MCHC 29.0(L) 32.0 - 36.0 G/DL 12/10/2024 8:21 AM [facility] RDW 17.6(H) 11.5 - 14.5 % 12/10/2024 8:21 AM [facility] PLT 251 130 - 400 x10'3/uL 12/10/2024 8:21 AM [facility] MPV 9.6 9.3 - 12.2 FL 12/10/2024 8:21 AM [facility] DIFFERENTIAL TYPE AUTOMATED DIFFERENTIAL 12/10/2024 8:21 AM [facility] NEUTROPHILS % 68.0 % 12/10/2024 8:21 AM [facility] LYMPHOCYTES % 20.9 % 12/10/2024 8:21 AM [facility] MONOCYTES % 6.8 % 12/10/2024 8:21 AM [facility] EOSINOPHILS 3.1 % 12/10/2024 8:21 AM [facility] BASOPHILS 0.8 % 12/10/2024 8:21 AM [facility] IMMATURE GRANS % 0.4 % 12/10/19 8:21 AM [facility] ABS. NEUTROPHILS 5.19 1.80 - 7.70 x10'3/uL 12/10/2024 8:21 AM [facility] ABS. LYMPHOCYTES 1.60 1.00 - 4.80 x10'3/uL 12/10/2024 8:21 AM [facility] ABS. MONOCYTES 0.52 0.24 - 0.86 x10'3/uL 12/10/2024 8:21 AM YARN SPOOLER [facility] ABS. EOSINOPHILS 0.24 0.04 - 0.36 x10'3/uL 12/10/2024 8:21 AM YARN SPOOLER [facility] ABS. BASOPHILS 0.06 0.01 - 0.08 x10'3/uL 12/10/2024 8:21 AM YARN SPOOLER [facility] ABS. IMMATURE GRANULOCYTES 0.03 0.00 - 0.49 x10'3/uL 12/10/2024 8:21 AM YARN SPOOLER [facility] 12/10/2024 7:26 AM YARN SPOOLER us Charline Chadwick APNP LABORATORY Final Res ult [facility] [address] [place] [address], [place] [phone] * US GD PARACENT W IMAGING (12/09/2024 2:14 PM YARN SPOOLER) Anatomical Region Laterality Modality Ultrasound 12/09/2024 1:22 PM YARN SPOOLER Impressions 12/09/2024 2:26 PM YARN SPOOLER =====IMPRESSION:===== 1. Moderate ascites 2. Procedure note for left lower quadrant approach paracentesis performed with ultrasound guidance. 3. 3.55 L of fluid removed. 4. No albumin IV placement to follow per protocol. 5. No immediate complication. Ordered By: CHARLINE CHADWICK Interpreted By: Alejandra Willis MD, 12/09/2024 1:22 PM Narrative 12/09/2024 2:26 PM YARN SPOOLER [facility] [address] [place], [place] [address] Examination: Ultrasound-guided paracentesis with imaging Exam date/time: 12/09/2024 1:10 PM ?? Reason For Exam: ??54 female presenting for diagnostic and therapeutic first paracentesis. Abdominal distention with ascites seen on imaging. ??Abnormal liver morphology of imaging with other chronic medical issues. Comparison: CT chest abdomen pelvis 12/07/2024 Technique: Informed verbal and written consent was obtained from the patient/patient's medical decision maker caregiver. The details of procedure were discussed, including all applicable risks, benefits and alternatives. Patient expressed understanding and wished to proceed. Initial survey ultrasound performed documenting the presence of moderate ascites. A timeout was performed. A left lower quadrant skin access site was chosen with ultrasound guidance, and prepped and draped. ??Sterile ultrasound technique, including hand wash with soap and water, was employed for the procedure.1% lidocaine was administered for local anesthesia and the skin and deeper soft tissues down to the peritoneum. A small skin incision was made through which a 6 Turkish Loccie one-step catheter was advanced under ultrasound guidance through the abdominal wall into the peritoneal cavity. Fluid was returned. The inner stylet was removed and the catheter attached to tubing attached to serial vacuum containers via a three-way stopcock, allowing withdrawal of clear straw-colored ascites. Once aspiration stopped, the catheter was removed. Compression was applied and hemostasis obtained and a sterile dressing placed. The patient tolerated the procedure well with no immediate complication. Findings: Moderate ascites. There is uneventful removal of 3.55 liters of fluid from the peritoneal cavity with trace no drainable residual ascites remaining by ultrasound post procedure. Procedure Note Alejandra Willis MD - 12/09/2024 [facility] [address] [place], [place] [address] Examination: Ultrasound-guided paracentesis with imaging Exam date/time: 12/09/2024 1:10 PM Reason For Exam: 54 female presenting for diagnostic and therapeuticfirst paracentesis. Abdominal distention with ascites seen on imaging.Abnormal liver morphology of imaging with other chronic medical issues. Comparison: CT chest abdomen pelvis 12/07/2024 Technique: Informed verbal and written consent was obtained from thepatient/patient's medical decision maker caregiver. The details ofprocedure were discussed, including all applicable risks, benefits andalternatives. Patient expressed understanding and wished to proceed. Initial survey ultrasound performed documenting the presence of moderateascites. A timeout was performed. A left lower quadrant skin access sitewas chosen with ultrasound guidance, and prepped and draped. Sterileultrasound technique, including hand wash with soap and water, wasemployed for the procedure.1% lidocaine was administered for localanesthesia and the skin and deeper soft tissues down to the peritoneum. Asmall skin incision was made through which a 6 Turkish CaLivingBenefitseh one-stepcatheter was advanced under ultrasound guidance through the abdominal wallinto the peritoneal cavity. Fluid was returned. The inner stylet wasremoved and the catheter attached to tubing attached to serial vacuumcontainers via a three- way stopcock, allowing withdrawal of clearstraw-colored ascites. Once aspiration stopped, the catheter was removed.Compression was applied and hemostasis obtained and a sterile dressingplaced. The patient tolerated the procedure well with no immediate complication. Findings: Moderate ascites. There is uneventful removal of 3.55 liters of fluid from the peritonealcavity with trace no drainable residual ascites remaining by ultrasoundpost procedure. =====IMPRESSION:===== 1. Moderate ascites 2. Procedure note for left lower quadrant approach paracentesis performedwith ultrasound guidance. 3. 3.55 L of fluid removed. 4. No albumin IV placement to follow per protocol. 5. No immediate complication. Ordered By: CHARLINE CHADWICK Interpreted By: Alejandra Willis MD, 12/09/2024 1:22 PM Charline Chadwick APNP ULTRASOUND Final Res ult * AMYLASE FLUID (12/09/2024 1:30 PM YARN SPOOLER) AMYLASE (BODY FLUID) 10 UNITS/L 12/09/2024 5:40 PM YARN SPOOLER [facility] Comment:REFERENCE RANGE NOT ESTABLISHED FOR THIS BODY FLUID. SPECIMEN SOURCE PERITONEAL FLUID 12/09/2024 1:32 PM YARN SPOOLER [facility] PERITONEAL FLUID / Unknown 12/09/2024 1:30 PM YARN SPOOLER Charline Chadwick STEVANSYL BODY FLUIDS AND STOOLS OR DERABLES Final Result [facility] [address] [place] [address], [place] [phone] [facility] [address] [place] [address], [place] [phone] * CELL COUNT W/ DIFF BODY FLUID (12/09/2024 1:30 PM YARN SPOOLER) SOURCE (FLUID) PERITONEAL FLUID 12/09/2024 1:32 PM YARN SPOOLER [facility] VOLUME (FLUID) 1,975.0 mL 12/09/2024 3:42 PM YARN SPOOLER [facility] COLOR (FLUID) DALTON 12/09/2024 3:42 PM YARN SPOOLER [facility] TURBIDITY TURBID 12/09/2024 3:42 PM YARN SPOOLER [facility] RBC (FLUID) 25,015 CELLS/UL 12/09/2024 3:42 PM YARN SPOOLER [facility] Comment: The reference range and other method performance specifications have not been established for this assay on body fluids. The test result should be integrated into the clinical context for interpretation and utilized in comparison to blood concentrations of the analyte as appropriate. TOTAL NUCLEATED CELL COUNT 823 CELLS/UL 12/09/2024 3:42 PM YARN SPOOLER [facility] Comment: The reference range and other method performance specifications have not been established for this assay on body fluids. The test result should be integrated into the clinical context for interpretation and utilized in comparison to blood concentrations of the analyte as appropriate. SEGS (FLUID) 4 % 12/09/2024 3:42 PM YARN SPOOLER [facility] Comment: The reference range and other method performance specifications have not been established for this assay on body fluids. The test result should be integrated into the clinical context for interpretation and utilized in comparison to blood concentrations of the analyte as appropriate. LYMPHS (FLUID) 36 % 12/09/2024 3:42 PM YARN SPOOLER [facility] Comment: The reference range and other method performance specifications have not been established for this assay on body fluids. The test result should be integrated into the clinical context for interpretation and utilized in comparison to blood concentrations of the analyte as appropriate. OTHER MONONUCLEAR CELLS (FLD) 60 % 12/09/2024 3:42 PM YARN SPOOLER [facility] Comment: THE FOLLOWING MAY INCLUDE MONOCYTE/MACROPHAGE,PLASMA CELL,MESOTHELIAL CELL,BRONCHIAL LINING CELL,SYNOVIAL LINING CELL,VENTRICULAR LINING CELL,ENDOTHELIAL CELL,SQUAMOUS EPITHELIAL AND OTHER CELLS. The reference range and other method performance specifications have not been established for this assay on body fluids. The test result should be integrated into the clinical context for interpretation and utilized in comparison to blood concentrations of the analyte as appropriate. PERITONEAL FLUID / Unknown 12/09/2024 1:30 PM YARN SPOOLER Charline FAJARDO BODY FLUIDS AND STOOLS OR DERABLES Final Result [facility] [address] [place] [address], [place] [phone] * ALBUMIN BODY FLUIDS (12/09/2024 1:30 PM YARN SPOOLER) ALBUMIN (FLUID) 2.2 G/DL 5:40 PM YARN SPOOLER [facility] Comment:REFERENCE RANGE NOT ESTABLISHED FOR THIS BODY FLUID. SPECIMEN SOURCE PERITONEAL FLUID 12/09/2024 1:32 PM YARN SPOOLER [facility] PERITONEAL FLUID / Unknown 12/09/2024 1:30 PM YARN SPOOLER Charline FAJARDO BODY FLUIDS AND STOOLS OR DERABLES Final Result [facility] [address] [place] [address], [place] [phone] [facility] [address] [place] [address], [place] [phone] * (ABNORMAL) URINE BACTERIA CULTURE (12/09/2024 10:13 AM YARN SPOOLER) SPEC DESCRIPTION URINE BORGES CATH 12/09/2024 10:14 AM YARN SPOOLER [facility] SPECIAL REQUESTS NO SPECIAL REQUEST 12/09/2024 10:14 AM YARN SPOOLER [facility] CULTURE RESULT >100,000 COL/ML ESCHERICHIA COLI (A) 12/11/2024 7:32 AM [facility] CULTURE RESULT 50,000-100,000 COL/ML KLEBSIELLA PNEUMONIAE (A) 12/11/2024 7:32 AM [facility] URINE SPECIMEN OBTAINED VIA INDWELLING URINARY CATHETER / Unknown 12/09/2024 10:13 AM YARN SPOOLER 12/09/2024 10:21 AM YARN SPOOLER Narrative Organism Antibiotic Method Susceptibility Escherichia coli AMPICILLIN MONE (VITEK) <=2: Sensitive Escherichia coli AMPICILLIN/SULBACTAM MONE (VITEK) <=2: Sensitive Escherichia coli CEFTRIAXONE MONE (VITEK) <=1: Sensitive Escherichia coli CEFTAZIDIME MONE (VITEK) <=1: Sensitive Escherichia coli CEFAZOLIN MONE (VITEK) <=4: Sensitive Escherichia coli ESBL MONE (VITEK) NEG: Sensitive Escherichia coli NITROFURANTOIN MONE (VITEK) <=16: Sensitive Escherichia coli GENTAMICIN MONE (VITEK) <=1: Sensitive Escherichia coli LEVOFLOXACIN MONE (VITEK) <=0.12: Sensitive Escherichia coli PIPRACIL/TAZO MONE (VITEK) <=4: Sensitive Escherichia coli TRIMETH-SULFAMETH. MONE (VITEK) <=20: Sensitive Klebsiella pneumoniae AMPICILLIN MONE (VITEK) 16: Resistant Klebsiella pneumoniae AMPICILLIN/SULBACTAM MONE (VITEK) 4: Sensitive Klebsiella pneumoniae CEFTRIAXONE MONE (VITEK) <=1: Sensitive Klebsiella pneumoniae CEFTAZIDIME MONE (VITEK) <=1: Sensitive Klebsiella pneumoniae CEFAZOLIN MONE (VITEK) <=4: Sensitive Klebsiella pneumoniae ESBL MONE (VITEK) NEG: Sensitive Klebsiella pneumoniae NITROFURANTOIN MONE (VITEK) 64: Intermediate Comment:INTERMEDIATE Klebsiella pneumoniae GENTAMICIN MONE (VITEK) <=1: Sensitive Klebsiella pneumoniae LEVOFLOXACIN MONE (VITEK) <=0.12: Sensitive Klebsiella pneumoniae PIPRACIL/TAZO MONE (VITEK) <=4: Sensitive Klebsiella pneumoniae TRIMETH-SULFAMETH. MONE (VITEK) <=20: Sensitive Charline Josh FAJARDO MICROBIOLOGY - GENERAL OR DERABLES Final Result Performing Organization Address [facility] Co de Phone Number [facility] [address] [place] [phone], * PROTIME/INR, VENOUS (12/09/2024 4:55 AM YARN SPOOLER) PROTIME 11.9 10.2 - 12.9 SEC 12/09/2024 6:22 AM YARN SPOOLER [facility] INR 1.0 12/09/2024 6:22 AM YARN SPOOLER [facility] Comment: Recommended INR Therapeutic Goals: ??2.0-3.0 Routine Therapy ??2.5-3.5 Mechanical Prosthetic Valves (High Risk) 12/09/2024 4:55 AM YARN SPOOLER Charline Josh FAJARDO LABORATORY Final Res ult Performing Organization Address City/[facility]/ZIP Co de Phone Number [facility] [address] [place] [address], [place] [phone] * (ABNORMAL) AMMONIA (12/09/2024 4:55 AM YARN SPOOLER) AMMONIA 47(H) 11 - 32 UMOL/L 12/09/2024 6:23 AM YARN SPOOLER [facility] 12/09/2024 4:55 AM YARN SPOOLER us Charline Moreno Jimy APNP LABORATORY Final Res ult [facility] [address] [place] [address], [place] [phone] * (ABNORMAL) URINALYSIS (12/08/2024 1:18 PM YARN SPOOLER) Only the most recent of2 resultswithin the time period is included. SPECIMEN TYPE URINE BORGES CATH 12/08/2024 1:18 PM YARN SPOOLER [facility] COLOR (U) LIGHT YELLOW 12/08/2024 1:48 PM YARN SPOOLER [facility] TRANSPARENCY CLEAR 12/08/2024 1:48 PM YARN SPOOLER [facility] SPECIFIC GRAVITY (U) 1.013 1.001 - 1.030 12/08/2024 1:48 PM YARN SPOOLER [facility] U PH 7.0 5.0 - 9.0 12/08/2024 1:48 PM YARN SPOOLER [facility] LEUKOCYTES (U) 250(A) NEGATIVE 12/08/2024 1:48 PM YARN SPOOLER [facility] NITRITES NEGATIVE NEGATIVE 12/08/2024 1:48 PM YARN SPOOLER [facility] PROTEIN RANDOM (U) NEGATIVE <30 MG/DL 12/08/2024 1:48 PM YARN SPOOLER [facility] GLUCOSE (U) NORMAL NORMAL MG/DL 12/08/2024 1:48 PM YARN SPOOLER [facility] KETONES MG/DL (U) NEGATIVE NEGATIVE MG/DL 12/08/2024 1:48 PM YARN SPOOLER [facility] UROBILINOGEN NORMAL NORMAL MG/DL 12/08/2024 1:48 PM YARN SPOOLER [facility] BILIRUBIN (U) NEGATIVE NEGATIVE MG/DL 12/08/2024 1:48 PM YARN SPOOLER [facility] BLOOD (U) TRACE(A) NEGATIVE 12/08/2024 1:48 PM YARN SPOOLER [facility] HYALINE CASTS RARE /LPF 12/08/2024 1:48 PM YARN SPOOLER [facility] WBC/HPF 8(H) <6 /HPF 12/08/2024 1:48 PM YARN SPOOLER [facility] RBC/HPF 5 <6 /HPF 12/08/2024 1:48 PM YARN SPOOLER [facility] URINE SPECIMEN OBTAINED VIA INDWELLING URINARY CATHETER / Unknown 12/08/2024 1:18 PM YARN SPOOLER Charline CALLESNP URINE ORDERABLES Final Re sult Performing Organization Address [facility]/ZIP Co de Phone Number [facility] [address] [place] [address], [place] [phone] * HEPATITIS PANEL,ACUTE (12/07/2024 6:36 PM YARN SPOOLER) HEPATITIS B SURFACE AG NON-REACTI VE NON-REACTI VE 12/07/2024 8:07 PM YARN SPOOLER [facility] HEP B CORE IGM NON-REACTI VE NON-REACTI VE 12/07/2024 8:11 PM YARN SPOOLER [facility] HAV IGM NON-REACTI VE NON-REACTI VE 12/07/2024 8:12 PM YARN SPOOLER [facility] HEPATITIS C AB NON-REACTI VE NON-REACTI VE 12/07/2024 8:10 PM YARN SPOOLER [facility] 12/07/2024 6:36 PM YARN SPOOLER Charline FAJARDO LABORATORY Final Res ult Performing Organization Address [facility]/ZIP Co de Phone Number [facility] [address] [place] [address], [place] [phone] * CT CHEST+ABD+PEL W CON (12/07/2024 1:39 PM YARN SPOOLER) Anatomical Region Laterality Modality Chest, Abdomen, Pelvis Computed Tomography 12/07/2024 2:36 PM YARN SPOOLER Impressions 12/07/2024 3:05 PM YARN SPOOLER IMPRESSION:===== 1. Enlarged heterogeneous liver with nodular contour. Findings suggest hepatocellular disease, liver failure and developing cirrhosis. 2. Moderate to large ascites. 3. Body wall soft tissue edema/anasarca. 4. Cholelithiasis. 5. Retroperitoneal, pelvic and inguinal lymphadenopathy is indeterminate. Further workup recommended with either short interval follow-up to assure resolution or PET/CT correlation. 6. Nodularity of the left upper mediastinum and supraclavicular region, possible venous or lymphatic varices versus adenopathy. This may be reassessed upon short interval follow-up. 7. Cardiomegaly with mild coronary artery calcifications. 8. Left upper lobe 5 mm pulmonary nodule may be reassessed upon follow-up. 9. Emphysema. 10. Left thyroid nodule. Outpatient thyroid ultrasound recommended. Referred By: ?? Interpreted By: Luis Titus MD, 12/07/2024 2:36 PM Narrative 12/07/2024 3:05 PM YARN SPOOLER [facility] [address] [place], [place] [address] EXAMINATION: CT chest, abdomen and pelvis with contrast EXAM DATE/TIME: 12/07/2024 1:15 PM REASON FOR EXAM: ??Abdominal distention, abnormal findings on abd US; acute/chronic resp failure ?? COMPARISON: Prior ultrasound images 12/06/2024. TECHNIQUE: Axial CT obtained of the chest, abdomen and pelvis with contrast, 100 mL Isovue-370. Multiplanar reconstructions are performed. ??Automated exposure control was utilized for dose reduction. FINDINGS: Mediastinal windows: Mild cardiomegaly. Minimal pericardial fluid. Mild coronary artery calcifications. Mild aortic valve calcifications. Atherosclerotic aorta and great vessels. Additional scattered bilateral calcifications elsewhere. Nodularity of the left anterior mediastinum, left thoracic inlet and left supraclavicular region could be mild adenopathy or varices, not well characterized. Suspected left supraclavicular confluent lymph nodes measuring 2.3 x 1.1 cm (image 9). Left thoracic inlet intermediate density tissue measuring 2.6 x 1.4 cm (image 13). Left thyroid nodule measuring approximately 1.7 cm. Right thyroid lobe is markedly atrophic. Trachea and esophagus are unremarkable. Lung windows: Moderate emphysema, most severe in the upper lobes. Patchy atelectasis in the lung bases. Lung detail is obscured by motion artifact. No suspicious infiltrate or pleural effusion. Lung detail is obscured by motion and atelectasis. Left upper lobe pulmonary nodule measures 5 mm. (Image 56). A few tiny nodular foci elsewhere are obscured. Abdomen findings: Moderate to large ascites greatest in the lower abdomen and pelvis. Hepatomegaly with heterogeneous echotexture of the liver. Liver contour nodularity suggesting hepatocellular disease/cirrhosis. No discrete liver mass is demonstrated on this exam. Gallbladder is nondistended with tiny gallstones dependently. Splenic granulomatous calcifications. Pancreas and adrenal glands are unremarkable. Kidneys are somewhat atrophic with mild renal cortical thinning bilaterally. IVC is somewhat distended, likely elevated central venous pressures. Atherosclerotic aorta and branching vessels. Mild retroperitoneal shotty adenopathy. Large and small bowel are grossly unremarkable. Mild retained stool, within physiologic limits. Pelvis: Bladder is decompressed with Borges catheter in place. Some air in the bladder related to catheter placement. Uterus, ovaries and rectum are grossly unremarkable. Ascites as above. Extensive bilateral vascular calcifications. Moderate bilateral pelvic and inguinal lymphadenopathy. Some degree of pelvic floor relaxation noted. Other findings: Marked diffuse body wall soft tissue edema in the lower abdomen, pelvis and thighs compatible with anasarca. Diffuse degenerative changes are noted. No acute fracture or destructive bone lesion. Benign hemangioma in the lower thoracic spine, T11 level. ===== Procedure Note Luis Titus MD - 12/07/2024 [facility] [address] [place], [place] [address] EXAMINATION: CT chest, abdomen and pelvis with contrast EXAM DATE/TIME: 12/07/2024 1:15 PM REASON FOR EXAM: Abdominal distention, abnormal findings on abd US;acute/chronic resp failure COMPARISON: Prior ultrasound images 12/06/2024. TECHNIQUE: Axial CT obtained of the chest, abdomen and pelvis withcontrast, 100 mL Isovue-370. Multiplanar reconstructions are performed.Automated exposure control was utilized for dose reduction. FINDINGS: Mediastinal windows: Mild cardiomegaly. Minimal pericardial fluid. Mildcoronary artery calcifications. Mild aortic valve calcifications.Atherosclerotic aorta and great vessels. Additional scattered bilateralcalcifications elsewhere. Nodularity of the left anterior mediastinum,left thoracic inlet and left supraclavicular region could be mildadenopathy or varices, not well characterized. Suspected leftsupraclavicular confluent lymph nodes measuring 2.3 x 1.1 cm (image 9).Left thoracic inlet intermediate density tissue measuring 2.6 x 1.4 cm(image 13). Left thyroid nodule measuring approximately 1.7 cm. Rightthyroid lobe is markedly atrophic. Trachea and esophagus areunremarkable. Lung windows: Moderate emphysema, most severe in the upper lobes. Patchyatelectasis in the lung bases. Lung detail is obscured by motion artifact.No suspicious infiltrate or pleural effusion. Lung detail is obscured bymotion and atelectasis. Left upper lobe pulmonary nodule measures 5 mm.(Image 56). A few tiny nodular foci elsewhere are obscured. Abdomen findings: Moderate to large ascites greatest in the lower abdomenand pelvis. Hepatomegaly with heterogeneous echotexture of the liver.Liver contour nodularity suggesting hepatocellular disease/cirrhosis. Nodiscrete liver mass is demonstrated on this exam. Gallbladder isnondistended with tiny gallstones dependently. Splenic granulomatouscalcifications. Pancreas and adrenal glands are unremarkable. Kidneys aresomewhat atrophic with mild renal cortical thinning bilaterally. IVC issomewhat distended, likely elevated central venous pressures.Atherosclerotic aorta and branching vessels. Mild retroperitoneal shottyadenopathy. Large and small bowel are grossly unremarkable. Mild retainedstool, within physiologic limits. Pelvis: Bladder is decompressed with Borges catheter in place. Some air inthe bladder related to catheter placement. Uterus, ovaries and rectum aregrossly unremarkable. Ascites as above. Extensive bilateral vascularcalcifications. Moderate bilateral pelvic and inguinal lymphadenopathy.Some degree of pelvic floor relaxation noted. Other findings: Marked diffuse body wall soft tissue edema in the lowerabdomen, pelvis and thighs compatible with anasarca. Diffuse degenerativechanges are noted. No acute fracture or destructive bone lesion. Benignhemangioma in the lower thoracic spine, T11 level. ===== IMPRESSION:===== 1. Enlarged heterogeneous liver with nodular contour. Findings suggesthepatocellular disease, liver failure and developing cirrhosis. 2. Moderate to large ascites. 3. Body wall soft tissue edema/anasarca. 4. Cholelithiasis. 5. Retroperitoneal, pelvic and inguinal lymphadenopathy is indeterminate.Further workup recommended with either short interval follow-up to assureresolution or PET/CT correlation. 6. Nodularity of the left upper mediastinum and supraclavicular region,possible venous or lymphatic varices versus adenopathy. This may bereassessed upon short interval follow-up. 7. Cardiomegaly with mild coronary artery calcifications. 8. Left upper lobe 5 mm pulmonary nodule may be reassessed uponfollow-up. 9. Emphysema. 10. Left thyroid nodule. Outpatient thyroid ultrasound recommended. Referred By: Interpreted By: Luis Titus MD, 12/07/2024 2:[address] Final Res ult * (ABNORMAL) TSH W/REFLEX (12/07/2024 5:53 AM YARN SPOOLER) Only the most recent of2 resultswithin the time period is included. TSH 9.350(H) 0.358 - 3.74 uIU/ML 12/07/2024 9:16 AM YARN SPOOLER [facility] Comment: HIGH DOSES OF BIOTIN MAY INTERFERE WITH THIS TEST RESULT. CORRELATION TO CLINICAL HISTORY AND PRESENTATION RECOMMENDED. 12/07/2024 5:53 AM YARN SPOOLER Charline FAJARDO LABORATORY Final Res ult [facility] [address] [place] [address], * (ABNORMAL) FREE T3 (12/07/2024 5:53 AM YARN SPOOLER) FREE T3 1.3(L) 2.2 - 3.9 PG/ML 12/08/2024 7:54 AM YARN SPOOLER [facility] 12/07/2024 5:53 AM YARN SPOOLER Charline Chadwick [facility] Final Res ult Performing Organization Address City/[facility] Co de Phone Number [facility] [address] [place] [address], [phone] * THYROXINE, FREE (FT4) (12/07/2024 5:53 AM YARN SPOOLER) Only the most recent of2 resultswithin the time period is included. FREE T4 1.36 0.76 - 1.46 NG/DL 12/07/2024 11:22 AM YARN SPOOLER [facility] 12/07/2024 5:53 AM YARN SPOOLER Charline Chadwick [facility] Final Res ult [facility] [address] [place] [address], [place] [phone] * MAGNESIUM (12/07/2024 5:53 AM YARN SPOOLER) Only the most recent of3 resultswithin the time period is included. MAGNESIUM 2.1 1.8 - 2.4 MG/DL 12/07/2024 9:16 AM YARN SPOOLER [facility] 12/07/2024 5:53 AM YARN SPOOLER us Charline Chadwick APNP LABORATORY Final Res ult [facility] [address] [place] [address], [place] [phone] * US ABD LIMITED (12/06/2024 1:15 PM YARN SPOOLER) Anatomical Region Laterality Modality Abdomen Ultrasound 12/06/2024 2:04 PM YARN SPOOLER Impressions 12/06/2024 2:06 PM YARN SPOOLER =====IMPRESSION:===== Small volume ascites with the largest right lower quadrant fluid pocket depth of 11 cm. Ordered By: CHARLINE CHADWICK Interpreted By: Alejandra Willis MD, 12/06/2024 2:04 PM Narrative 12/06/2024 2:06 PM YARN SPOOLER [facility] [address] [place], [place] [address] Exam: Abdominal ultrasound ascites check Exam Date/Time: 12/06/2024 12:51 PM Clinical indication: ??54 female. Reported enlarged right abdomen. Evaluation for ascites. Comparison: None Technique: Ultrasound of the 4 abdominal quadrants was performed to assess for the presence of ascites. FINDINGS: There is small volume ascites. There is trace perihepatic fluid. Small pockets of fluid present in left upper and lower quadrants. Largest fluid pocket is in the right lower quadrant with a fluid depth of 11 cm. Procedure Note Alejandra Willis MD - 12/06/2024 [facility] [address] [place], [place] [address] Exam: Abdominal ultrasound ascites check Exam Date/Time: 12/06/2024 12:51 PM Clinical indication: 54 female. Reported enlarged right abdomen.Evaluation for ascites. Comparison: None Technique: Ultrasound of the 4 abdominal quadrants was performed to assessfor the presence of ascites. FINDINGS: There is small volume ascites. There is trace perihepatic fluid. Smallpockets of fluid present in left upper and lower quadrants. Largest fluidpocket is in the right lower quadrant with a fluid depth of 11 cm. =====IMPRESSION:===== Small volume ascites with the largest right lower quadrant fluid pocketdepth of 11 cm. Ordered By: CHARLINE CHADWICK Interpreted By: Alejandra Willis MD, 12/06/2024 2:04 PM us Charline Chadwick APNP ULTRASOUND Final Res ult * (ABNORMAL) BASIC METABOLIC PANEL (12/06/2024 9:22 AM YARN SPOOLER) Only the most recent of6 resultswithin the time period is included. GLUCOSE 131(H) 70 - 99 MG/DL 12/06/2024 10:32 AM [facility] BUN 21(H) 7 - 18 MG/DL 12/06/2024 10:32 AM [facility] CREATININE S/P/B 1.02 0.55 - 1.02 MG/DL 12/06/2024 10:32 AM [facility] SODIUM S/P/B 127(L) 136 - 145 MMOL/L 12/06/2024 10:32 AM [facility] POTASSIUM S/P/B 3.6 3.5 - 5.1 MMOL/L 12/06/2024 10:32 AM [facility] CHLORIDE S/P/B 82(L) 97 - 115 MMOL/L 12/06/2024 10:32 AM [facility] CO2 41.9(HH) 21 - 32 MMOL/L 12/06/2024 10:32 AM [facility] Comment: Critical Result(s) Called at: 10:31:02 on 12/06/2024 by: NILDA NATHAN to and read back by:KATIE NICOLE CALCIUM S/P/B 9.4 8.5 - 10.1 MG/DL 12/06/2024 10:32 AM YARN SPOOLER [facility] ANION GAP 3.1 2 - 10 MMOL/L 12/06/2024 10:32 AM [facility] BUN CREATININE RATIO 20.6 6 - 26 12/06/2024 10:32 AM [facility] GFR ESTIMATE 65(L) >90 ML/MIN/1.7 3 M2 12/06/2024 10:32 AM [facility] Comment: NOTE: eGFR is not calculated for patients <18 years of age or gender unknown. This is an estimated GFR calculation using the new CKD EPI creatinine equation without race and so does not require a correction factor for race. This estimated GFR should not be used for calculating drug doses. 12/06/2024 9:22 AM YARN SPOOLER Charline CALLESNP LABORATORY Final Res ult [facility] [address] [place] [address], [place] [phone] * CORTROSYN STIMULATION (12/04/2024 1:00 PM YARN SPOOLER) Only the most recent of2 resultswithin the time period is included. CORTISOL BASELINE 44.7 mcg/dL 12/04/2024 1:44 PM YARN SPOOLER [facility] 12/04/2024 1:0 0 PM YARN SPOOLER Kerry Gordon BACK ROLLER LABORATORY Final Result [facility] [address] [place] [address], [place] [phone] * CORTISOL AM (12/03/2024 7:58 AM YARN SPOOLER) CORTISOL 8AM 8.5 4.0 - 20.0 mcg/dL 12/03/2024 8:40 AM YARN SPOOLER [facility] 12/03/2024 7:58 AM YARN SPOOLER Jermaine Reddy MD LABORATORY Final Result [facility] [address] [place] [address], * (ABNORMAL) IRON SAT PANEL (IRON,IBC,%SAT) (12/03/2024 5:05 AM YARN SPOOLER) IRON 23(L) 50.0 - 170.0 MCG/DL 12/03/2024 6:28 AM YARN SPOOLER [facility] IRON BINDING CAPACITY 454(H) 250 - 450 MCG/DL 12/03/2024 6:28 AM [facility] IRON SATURATION 5(L) 20 - 55 % 6:28 AM [facility] 12/03/2024 5:05 AM YARN SPOOLER Hamlet Arrieta APRN LABORATORY Final Result [facility] [address] [place] [address], * VITAMIN B-12 (12/03/2024 5:05 AM YARN SPOOLER) VITAMIN B12 S/P/B 586 254 - 1,320 PG/ML 12/03/2024 6:32 AM YARN SPOOLER [facility] 12/03/2024 5:05 AM YARN SPOOLER Césarsantos Trever Arrieta APRN LABORATORY Final Result Performing Organization Address City/[facility]/ZIP Co de Phone Number [facility] [address] [place] [address], [place] [phone] * (ABNORMAL) FOLIC ACID SERUM (12/03/2024 5:05 AM YARN SPOOLER) FOLATE 41.4(H) 3.1 - 17.5 NG/ML 12/03/2024 6:32 AM YARN SPOOLER [facility] 12/03/2024 5:05 AM YARN SPOOLER Hamlet Arrieta APRN LABORATORY Final Result Performing Organization Address [facility] Co de Phone Number [facility] [address] [place] [address], [place] [phone] * FERRITIN (12/03/2024 5:05 AM YARN SPOOLER) FERRITIN 10.7 8.0 - 388.0 NG/ML 12/03/2024 6:32 AM YARN SPOOLER [facility] 12/03/2024 5:05 AM YARN SPOOLER Césarsantos Perera Mgadi BOND LABORATORY Final Result Performing Organization Address City/[facility] Co de Phone Number [facility] [address] [place] [address], [place] [phone] * SODIUM URINE RANDOM (12/02/2024 6:00 PM YARN SPOOLER) Only the most recent of2 resultswithin the time period is included. NA RANDOM (U) 70 MMOL/L 12/03/2024 12:15 PM YARN SPOOLER [facility] Comment:REFERENCE RANGE NOT ESTABLISHED URINE SPECIMEN / Unknown 12/02/2024 6:00 PM YARN SPOOLER Jermaine Reddy MD URINE ORDERABLES Final Result Performing Organization Address City/[facility]/ZIP Co de Phone Number [facility] [address] [place] [address], [place] [phone] * OSMOLALITY, URINE (12/02/2024 6:00 PM YARN SPOOLER) Only the most recent of2 resultswithin the time period is included. OSMOLALITY (U) 268 50 - 1,200 MOSM/KG 12/02/2024 6:50 PM YARN SPOOLER [facility] URINE SPECIMEN / Unknown 12/02/2024 6:00 PM YARN SPOOLER Jermaine Reddy MD URINE ORDERABLES Final Result Performing Organization Address [facility] Co de Phone Number [facility] [address] [place] [address], [place] [phone] * XR ABD KUB (12/02/2024 2:37 PM YARN SPOOLER) Anatomical Region Laterality Modality Abdomen Radiographic Clarissa ging 12/02/2024 3:19 PM YARN SPOOLER Impressions 12/02/2024 3:39 PM YARN SPOOLER IMPRESSION: Limited abdominal radiographs with greatest air distention of bowel loops in the left upper quadrant. Consider CT for evaluation if clinically indicated. Ordered By: HAMLET ARRIETA Interpreted By: Ant Morse, 12/02/2024 3:19 PM Narrative 12/02/2024 3:39 PM YARN SPOOLER [facility] [address] [place], [place] [address] IMAGING STUDIES: ??XR ABD KUB ? DATE: ??12/02/2024 2:17 PM HISTORY: abdominal distention ?54-year-old female. Abdominal distention and pain. Current inpatient. Patient is reportedly 5 feet 5 inches, 230 pounds, and BMI 38.3 on 12/01/2024. COMPARISON: ??Chest portable 12/01/2024. DISCUSSION: Patient reportedly could not lay down and therefore upright views of the abdomen and pelvis were obtained on 3 images. Examination is limited due to large body habitus. Additionally, there is breathing motion on views of the mid to upper abdomen. Mildly air distended bowel loops in the left upper abdomen, minimal air distention of mid abdominal bowel loops, and no appreciable air distention of pelvic bowel loops. Procedure Note Ant Morse MD - 12/02/[address] [address] IMAGING STUDIES: XR ABD KUBDATE: 12/02/2024 2:17 PM HISTORY: abdominal distention 54-year-old female. Abdominal distentionand pain. Current inpatient. Patient is reportedly 5 feet 5 inches, 230pounds, and BMI 38.3 on 12/01/2024. COMPARISON: Chest portable 12/01/2024. DISCUSSION: Patient reportedly could not lay down and therefore upright views of theabdomen and pelvis were obtained on 3 images. Examination is limited due to large body habitus. Additionally, there isbreathing motion on views of the mid to upper abdomen. Mildly air distended bowel loops in the left upper abdomen, minimal airdistention of mid abdominal bowel loops, and no appreciable air distentionof pelvic bowel loops. IMPRESSION: Limited abdominal radiographs with greatest air distention of bowel loopsin the left upper quadrant. Consider CT for evaluation if clinicallyindicated. Ordered By: HAMLET ARRIETA Interpreted By: Ant Morse, 12/02/2024 3:19 PM us Hamlet Arrieta WOOD TILE INSTALLATION HELPER GENERAL IMAGING Final Result * USE ECHOCARDIOGRAM (12/02/2024 10:11 AM YARN SPOOLER) Anatomical Region Laterality Modality Cardiac Echocardiogram 12/02/2024 10:2 4 AM YARN SPOOLER Narrative 12/02/2024 9:35 PM YARN SPOOLER ?Echocardiography Report Pat.Name: ??ZENIA ALVAREZ ?Pat.ID: ?[id number] ? St.Date: ?? 12/02/2024 ? Refer.MD: ??anatoliy Krishnamurthy ? Exam Time: 10:24:00 AM ? Study Type:ECHO WITH CARDIAC DOPPLER COMP Height: ?77 in ? Weight: ?230 lb ? BSA: ? 2.37 m2 ?Age: ??1970,54Y ? Sex: ? F ? HR: ?60 bpm ? Sonogrphr: Aline Acevedo RDCS ??Pat. Stat.:Inpatient ? Room: ?501 ? Reason for Study:CHF ? Procedures: 2D, M-mode, Doppler, Color Flow, The study quality is technically adequate. Race: ?W ? ++++++++++++++++++++++++++++++++++++ SUMMARY: ++++++++++++++++++++++++++++++++++++ The left ventricular size is mildly enlarged. Estimated left ventricular ejection fraction is 55-60%. Mild to moderate concentric left ventricular hypertrophy. Left ventricular diastolic function is abnormal. Wall motion appears normal in all segments. The right ventricular size is mild to moderately enlarged. Right ventricular systolic function is normal. Moderate aortic regurgitation. ++++++++++++++++++++++++++++++++++++ FINDINGS: ++++++++++++++++++++++++++++++++++++ LV: ? The left ventricular size is mildly enlarged. Estimated left ?ventricular ejection fraction is 55-60%. Mild to moderate ?concentric left ventricular hypertrophy. Left ventricular ?diastolic function is abnormal. WM: ? Wall motion appears normal in all segments. RV: ? The right ventricular size is mild to moderately enlarged. ?Right ventricular systolic function is normal. IVS: ?No evidence of ventricular septal defect. Abnormal septal ?motion is noted. LA: ? The left atrial size is normal. The left atrial volume is ?normal ( less than 34 ml/M2). RA: ? Right atrial size is normal. IAS: ?Atrial septum appears intact. JULIEN: ? No evidence of pericardial effusion. AO: ? Normal aortic root. PA: ? Estimated right atrial pressure of 15 mmHg. SVn: ?Inferior vena cava is severely enlarged. Inferior vena cava ?shows <50% collapse with respiration consistent with ?elevated right atrial pressure. Systemic veins not well ?visualized. AV: ? No evidence of aortic valve stenosis. Moderate aortic ?regurgitation. MV: ? Trace mitral regurgitation. No evidence of mitral valve ?stenosis. Myxomatous degeneration of mitral valve. PV: ? Trace pulmonic regurgitation. No evidence of pulmonic valve ?stenosis. TV: ? Moderate tricuspid regurgitation. Right ventricular systolic ?pressure is 47 mmHg. No evidence of tricuspid valve ?stenosis. <Electronic Signature> 12/02/2024 09:35 PM Rosendo Amaro M.D. Procedure Note Rosendo Amaro MD - 12/02/2024 Echocardiography Report Pat.Name: ZENIA ALVAREZ Pat.ID: [id number] .Date: 12/02/2024 Refer.MD: anatoliy Krishnamurthy Exam Time: 10:24:00 AM Study Type:ECHO WITH CARDIAC DOPPLER COMP Height: 77 in Weight: 230 lb BSA: 2.37 m2 Age: 3 1970,54Y Sex: F HR: 60 bpm Sonogrphr: Aline Acevedo [facility] Pat. Stat.:Inpatient Room: [facility] Reason for Study:CHF Procedures: 2D, M-mode, Doppler, Color Flow, The study quality is technically adequate. Race: W ++++++++++++++++++++++++++++++++++++ SUMMARY: ++++++++++++++++++++++++++++++++++++ The left ventricular size is mildly enlarged. Estimated left ventricular ejection fraction is 55-60%. Mild to moderate concentric left ventricular hypertrophy. Left ventricular diastolic function is abnormal. Wall motion appears normal in all segments. The right ventricular size is mild to moderately enlarged. Right ventricular systolic function is normal. Moderate aortic regurgitation. ++++++++++++++++++++++++++++++++++++ FINDINGS: ++++++++++++++++++++++++++++++++++++ LV: The left ventricular size is mildly enlarged. Estimated left ventricular ejection fraction is 55-60%. Mild to moderate concentric left ventricular hypertrophy. Left ventricular diastolic function is abnormal. WM: Wall motion appears normal in all segments. RV: The right ventricular size is mild to moderately enlarged. Right ventricular systolic function is normal. IVS: No evidence of ventricular septal defect. Abnormal septal motion is noted. LA: The left atrial size is normal. The left atrial volume is normal ( less than 34 ml/M2). RA: Right atrial size is normal. IAS: Atrial septum appears intact. JULIEN: No evidence of pericardial effusion. AO: Normal aortic root. PA: Estimated right atrial pressure of 15 mmHg. SVn: Inferior vena cava is severely enlarged. Inferior vena cava shows <50% collapse with respiration consistent with elevated right atrial pressure. Systemic veins not well visualized. AV: No evidence of aortic valve stenosis. Moderate aortic regurgitation. MV: Trace mitral regurgitation. No evidence of mitral valve stenosis. Myxomatous degeneration of mitral valve. PV: Trace pulmonic regurgitation. No evidence of pulmonic valve stenosis. TV: Moderate tricuspid regurgitation. Right ventricular systolic pressure is 47 mmHg. No evidence of tricuspid valve stenosis. <Electronic Signature> 12/02/2024 09:35 PM Rosendo Amaro M.D. us Anatoliy Krishnamurthy RONDA ECHO Final Resul t * TROPONIN, QUANT (12/01/2024 11:20 PM YARN SPOOLER) Only the most recent of3 resultswithin the time period is included. Pathologist [facility] TROPONIN I HIGH SENSITIVITY 19 <54 ng/L 12/02/2024 12:01 AM YARN SPOOLER [facility] Comment: HIGH DOSES OF BIOTIN, TROPONIN-SPECIFIC AUTOANTIBODIES, AND ANTIBODY THERAPY CONTAINING HAMA MAY INTERFERE WITH THIS TEST RESULT. CORRELATION TO CLINICAL HISTORY AND PRESENTATION RECOMMENDED. 12/01/2024 11:2 0 PM YARN SPOOLER us Anatoliy Krishnamurthy WOOD TILE INSTALLATION HELPER LABORATORY Final Resul t Performing Organization Address City/[facility] Co de Phone Number [facility] [address] [place] [address], * (ABNORMAL) OSMOLALITY, BLOOD (12/01/2024 11:20 PM YARN SPOOLER) [facility] OSMOLALITY (S/P/B) 266(L) 270 - 290 MOSM/KG 12/01/2024 11:39 PM YARN SPOOLER [facility] 12/01/2024 11:2 0 PM YARN SPOOLER us Anatoliy Krishnamurthy WOOD TILE INSTALLATION HELPER LABORATORY Final Resul t Performing Organization Address City/[facility]/ZIP Co de Phone Number [facility] [address] [place] [address], * (ABNORMAL) PRO-BRAIN NATRIURETIC PEPTIDE (12/01/2024 7:26 PM YARN SPOOLER) Only the most recent of2 resultswithin the time period is included. Pathologist [facility] PRO-B TYPE NATRIURETIC PEPTIDE 2,760(H) <125 PG/ML 12/01/2024 8:17 PM YARN SPOOLER [facility] Comment: CUT POINTS ESTABLISHED BY [employer]NATIONAL [employer] ON NT PROBNP (ICON) STUDY (2006). AGE INDEPENDENT: <300 PG/ML HAS A 99% NEGATIVE PREDICTIVE VALUE FOR EXCLUDING ACUTE CHF <50 YEARS: >450 PG/ML IS CONSISTENT WITH ACUTE CHF 50-75 YEARS: >900 PG/ML IS CONSISTENT WITH ACUTE CHF >75 YEARS: >1800 PG/ML IS CONSISTENT WITH ACUTE CHF IN PATIENTS WITH RENAL INSUFFICIENCY (GFR <60), >1200 PG/ML YIELDS A DIAGNOSTIC SENSITIVITY AND SPECIFICITY OF 89% AND 72% FOR ACUTE CHF. 12/01/2024 7:26 PM YARN SPOOLER us Yash Sheth PA-C LABORATORY Final Resul t Performing Organization Address City/[facility]/ZIP Co de Phone Number [facility] [address] [place] [address], [place] [phone] * PHOSPHORUS, INORGANIC PHOSPHATE (12/01/2024 7:26 PM YARN SPOOLER) PHOSPHORUS 2.8 2.5 - 4.9 MG/DL 12/01/2024 9:23 PM YARN SPOOLER [facility] 12/01/2024 7:26 PM YARN SPOOLER us Anatoliy Krishnamurthy APRN LABORATORY Final Resul t [facility] [address] [place] [address], [place] [phone] * (ABNORMAL) LIPASE (12/01/2024 7:26 PM YARN SPOOLER) LIPASE 12(L) 13 - 75 UNITS/L 12/01/2024 8:17 PM YARN SPOOLER [facility] 12/01/2024 7:26 PM YARN SPOOLER us Yash ROJO-C LABORATORY Final Resul t [facility] [address] [place] [address], [place] [phone] * XR CHEST PORTABLE (12/01/2024 7:03 PM YARN SPOOLER) Only the most recent of2 resultswithin the time period is included. Anatomical Region Laterality Modality Chest Radiographic Clarissa ging 12/01/2024 7:15 PM YARN SPOOLER Impressions 12/01/2024 7:15 PM YARN SPOOLER Impression: Cardiomegaly and pulmonary vascular congestion. Referred By: ?? Interpreted By: Rolf Pyle MD, 12/01/2024 7:15 PM Narrative 12/01/2024 7:15 PM YARN SPOOLER [facility] [address] [place], [place] [address] Examination: Chest 1 view portable History: Pain DATE/TIME: 12/01/2024 6:51 PM Comparison: October 21, 2024 Technique: AP upright portable view of the chest was obtained. Findings: Cardial megaly. ??Mild pulmonary vascular congestion. ??No pulmonary consolidation, pleural effusion or pneumothorax. ??Mild linear left basilar atelectasis. ??No acute osseous abnormality. Procedure Note Rolf Pyle MD - 12/01/2024 [facility] [address] [place], [place] [address] Examination: Chest 1 view portable History: Pain DATE/TIME: 12/01/2024 6:51 PM Comparison: October 21, 2024 Technique: AP upright portable view of the chest was obtained. Findings: Cardial megaly. Mild pulmonary vascular congestion. Nopulmonary consolidation, pleural effusion or pneumothorax. Mild linearleft basilar atelectasis. No acute osseous abnormality. Impression: Cardiomegaly and pulmonary vascular congestion. Referred By: Interpreted By: Rolf Pyle MD, 12/01/2024 7:15 PM us Yash Sheth PA-C GENERAL IMAGING Final Resul t * ECG 12 lead (12/01/2024 6:52 PM YARN SPOOLER) Only the most recent of2 resultswithin the time period is included. 12/01/2024 6:52 PM YARN SPOOLER Narrative [facility] ([facility]ARCELINO) RAD - 12/02/2024 9:35 AM YARN SPOOLER ?[facility]salvador Elio ? [address] [facility] [place] ? Test Date: ?2024-12-01 Pat Name: ? ZENIA ALVAREZ ?Department: ?? 41 ? Room: ? A501 Gender: ? Female ? [place] Reporter: ?? [id number] : ?1970 ? Requested By: YASH SHETH Order Number: [id number] ? Reading : ?? Ayden Ramirez ? Measurements Intervals ?[place] ? Rate: ? 62 ? P: ?59 UT: ? 205 ?QRS: ?-32 QRSD: ? 114 ?T: ?74 QT: ? 464 ? QTc: ?472 ? Interpretive Statements SINUS RHYTHM LEFT AXIS DEVIATION ??[QRS AXIS < -30] Poor R Wave Progression Compared to ECG 10/21/2024 19:48:49 Left-axis deviation now present SPOOLER Procedure Note Ayden Ramirez MD - 12/02/[address] Test Date: 2024-12-01 Pat Name: ZENIA ALVAREZ Department: 41 Room: 01 Gender: Female [place] Reporter: [id number] : 1970 Requested By: YASH SHETH Order Number: [id number] Reading MD: Ayden Ramirez Measurements Intervals [place] Rate: 62 P: 59 UT: 205 QRS: -32 QRSD: 114 T: 74 QT: 464 QTc: 472 Interpretive Statements SINUS RHYTHM LEFT AXIS DEVIATION [QRS AXIS < -30] Poor R Wave Progression Compared to ECG 10/21/2024 19:48:49 Left-axis deviation now present SPOOLER us Yash Sheth PA-C ECG ORDERABLES Final Resul t Performing Organization Address City/State/[facility] Co de Phone Number [facility] * Critical Care (12/01/2024 6:45 PM YARN SPOOLER) Narrative Arturo Garza, DO - 12/01/2024 6:45 PM YARN SPOOLER Yash Sheth PA-C ? 12/01/2024 ??8:36 PM Critical Care Performed by: Yash Sheth PA-C Authorized by: Yash Sheth PA-C ?? Critical care provider statement: ??Critical care time (minutes): ??60 ??Critical care start time: ??12/01/2024 7:32 PM ??Critical care end time: ??12/01/2024 8:32 PM ??Critical care time was exclusive of: ??Teaching time ??Critical care was necessary to treat or prevent imminent or life-threatening deterioration of the following conditions: ??Cardiac failure and metabolic crisis (CHF, significant hypokalemia) ??Critical care was time spent personally by me on the following activities: ??Blood draw for specimens, development of treatment plan with patient or surrogate, evaluation of patient's response to treatment, examination of patient, obtaining history from patient or surrogate, ordering and performing treatments and interventions, ordering and review of laboratory studies, ordering and review of radiographic studies, pulse oximetry, re-evaluation of patient's condition and review of old charts ??I assumed direction of critical care for this patient from another provider in my specialty: no ?Care discussed with: admitting provider ?? 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 Advance Directives and Living Will 12/11/2024 1:46 PM POA FOR HEALTH CARE 12/08/2024 Advance Directives and Living Will 12/11/2024 1:46 PM POA FOR HEALTH CARE 12/02/2024 * Full Code (Latest Code Status on File) Date Activated Date Inactivated Comments 12/11/2024 10:21 AM * Full Code Date Activated Date Inactivated Comments 12/01/2024 8:56 PM 12/10/2024 3:29 PM * Full Code Date Activated Date Inactivated Comments 08/18/2024 10:22 PM 08/22/2024 4:17 PM Care Teams Sailboat Captain Relationship Specialty Start Date End Date Murali Hernandez DO [address] [place] [address] PCP - General FAMILY PRACTICE 08/18/24
--- OUTSIDE RECORDS SUMMARY | 2024-12-19 21:07 | XMS_ITS | Encounter Summary ---
Author Organization [facility] Address [address] [place] [address]. [place], [place] [id number] [place] [id number] Care Team Providers Care Phlebotomy Manager Name Role Phone Murali Hernandez DO Primary Care Provider [phone] Reason for Visit * Auth/Cert (Routine) Specialty Diagnoses / Procedures Referred By Eileen t Referred To Contact Home Health Services Referral ID Status Reason Start Date Expiration Date Visits Re quested Visits Authorized [id number] 1 1 Encounter Details Date Type Department Care Team (Late st Contact Info) Description 12/18/2024 10:00 AM SPEEDER HAND Home Care Visit [facility] Care [address] [place] [address] [place] [address] Jennifer Oliveira LPN SN HOME VISIT Social History Tobacco Use Types Packs/Day Years Used Date Smoking Tobacco: Every Day Cigarettes Smokeless Tobacco: Never Alcohol Use Standard Drinks/Week Comments Not Currently [...] from your doctor or pharmacy? Rarely 12/01/2024 [facility] Utilities Answer Date Recorded In the past 12 months has e electric, gas, oil, or water company threatened to shut off services in your [...] often do you attend chur ch or church services? More than 4 times per year 12/01/2024 Do you belong to any clubs o r organizations such as hindu groups, unions, fraternal or athletic groups, or [...] and heating? Not hard at all 12/01/2024 [facility] - Occupational Stress [...] any time in the past [facility], were you homeless or living in a retirement (including now)? No 12/01/2024 Comments No Sex and Gender Information Value Date Recorded Sex Assigned at Female 12/07/2024 1:56 AM SPEEDER HAND Legal Sex Female 11:16 PM SPEEDER HAND Gender Identity Female 12/07/2024 1:56 AM SPEEDER HAND Sexual Orientation Straight 12/07/2024 1: 56 AM SPEEDER HAND documented as of this encounter Last Filed Vital Signs Vital Sign Reading Time Taken Comments Blood Pressure 150/50 12/18/2024 9:57 AM SPEEDER HAND Pulse 84 12/18/2024 9:57 AM SPEEDER HAND Temperature 36.8 ??C (98.2 ??F) 12/18/2024 9:57 AM CS T Respiratory Rate 20 12/18/2024 9:57 AM SPEEDER HAND Oxygen Saturation 96% 12/18/2024 9:57 AM SPEEDER HAND Inhaled Oxygen Concentration - - Weight - - Height - - Body Mass Index - - documented in this encounter Functional Status * Are you deaf or do you have serious difficulty hearing Answer Date of Assessment Author Status No 12/01/2024 11:49 PM Nilson Bernabe RN Active * Are you blind or do you have serious difficulty seeing, even when wearing glasses? Answer Date of Assessment Author Status No 12/01/2024 11:49 PM Nilson Bernabe RN Active * Do you have serious difficulty walking or climbing stairs? Answer Date of Assessment Author Status Yes 12/01/2024 11:49 PM Nilson Bernabe RN Active * Do you have difficulty dressing or bathing? Answer Date of Assessment Author Status Yes 12/01/2024 11:49 PM Nilson Bernabe RN Active * Because of a physical, mental, or emotional condition, do you have difficulty doing errands alone such as visiting a doctor's office or shopping? Answer Date of Assessment Author Status Yes 12/01/2024 11:49 PM Nilson Bernabe RN Active documented as of this encounter Mental Status * Because of a physical, mental, or emotional condition, do you have serious difficulty concentrating, remembering, or making decisions? Answer Entry Date Author Status No 12/01/2024 11:49 PM Nilson Bernabe RN Active documented in this encounter Plan of Treatment Upcoming Encounters Date Type Department Care Team (Late st Contact Info) Description 12/20/2024 3:00 PM SPEEDER HAND Home Care Visit [facility] Care [address] [place] [address] [place] [address] Macario Perez, PT [address] [place] [address] 12/25/2024 9:00 AM SPEEDER HAND Home Care Visit [facility] Care [address] [place] [address] [place] [address] Misti Shell RN documented as of this encounter Goals Goal Patient Goal Type Associated Problems Recent Progress Patient-Stated? Author Health - patient able to perform ADLs independently Lifestyle Daniela Mcneil RN Patient will return to prior living situation and remain independent in ADLs upon discharge from hospital Lifestyle No Irma Gunter RN documented as of this encounter Visit Diagnoses Not on filedocumented in this encounter Home Health Visit - Care Plan Visit Details Visit Type -SN - Home Visit Discipline -Alf Problems Problem Description Start Date Status Goals Interve ntions Pain/Physical Discomfort Disciplines: SN Patient is experiencing pain/physical discomfort. 12/11/2024 Active 1 goal linked to scheduled/document ed intervention 2 goal interventions scheduled/document ed in this visit Collaboration of Care Disciplines: SN Collaboration for safe care. 12/11/2024 Active 5 goals linked to scheduled/document ed interventions 9 goal interventions scheduled/document ed in this visit Oxygen Safety/Precau tions Disciplines: SN Oxygen Safety/Precaution s 12/11/2024 Active 2 goals linked to scheduled/document ed interventions 4 goal interventions scheduled/document ed in this visit Fall Precautions Disciplines: SN Patient at risk for falls or has had recent fall occurrence(s). 12/11/2024 Active 1 goal linked to scheduled/document ed intervention 5 goal interventions scheduled/document ed in this visit Congestive Heart Failure Disciplines: SN Care related to congestive heart failure. 12/11/2024 Active 2 goals linked to scheduled/document ed interventions 4 goal interventions scheduled/document ed in this visit Goals Goal Associated Problem Outcome Goal Met? Visit Notes Patient's pain/physical discomfort will be reduced to the level of patient's stated goal. Description: - Patient's pain/physical discomfort will be reduced to the level of patient's stated goal by 12/25/24. - Patient's desired pain goal is 0. - Patient will verbalize understanding of the pain management plan by 12/18/24. Pain/Physical Discomfort Progressing No Hosptial Readmission Reduction Description: Hospital Readmission Reduction - Hospital Readmission Reduction - High Risk (7 and greater risk factors). Patient's risk number is 11. Hospital Readmission will be avoided during the first 60-day episode of Homecare through frequency of assessment visits. Collaboration of Care Progressing No Patient safety met through collaboration for safe care. Description: STG: Patient will be able to verbalize safety issues as identified and make changes to increase safety by 12/18/24 LTG: Clinicians will communicate patient care and safety needs during episode of care through 12/25/24 Collaboration of Care Progressing No Nutritional Status for Optimal Health Description: Nutritional goals: STG: Patient will verbalize importance of adequate nutrition and fluid intake by 12/18/24 LTG: Patient will demonstrate adequate nutritional status as evidenced by stabilization of weight and intake of required nutrients for optimal health and functioning by 12/25/24 Collaboration of Care Progressing No Patient verbalizes understanding of medication regimen Description: Medication regimen goals: STG: Patient and Caregiver will verbalize understanding of medication regimen by 12/18/24 LTG: Patient and caregiver will continue to compliant with medication regimen and understand medication frequency,dosage,and administration through 12/25/24 Collaboration of Care Progressing No Patient meets homebound requirements. Description: Patient meets requirements of homebound status as evidenced by fatigues easily, impaired/poor balance gait, decreased endurance to recent illness, fall risk, gait limited to house distances, impaired driving ability, pain/weakness due to illness. Collaboration of Care Progressing No Ensure Working Smoke Detectors Description: Patient will verbalize understanding of importance of having working smoke detectors in the home by 12/18/24. Patient will have working smoke detectors in the home by 12/25/24 Oxygen Safety/Precautions Progressing No Understanding of Oxygen Safety Description: Patient will verbalize understanding of appropriate oxygen use and safety by 12/18/24. Oxygen Safety/Precautions Progressing No Patient/caregiver maintains a safe environment. Description: STG: patient will verbalise understanding of home safety and fall prevention measures for decreased fall risk by 12/18/24 LTG: Patient/caregiver will demonstrate ability to maintain a safe environment without injuries/falls by 12/25/24 Fall Precautions Progressing No Patient will have decreased lower extremity edema Description: - Patient will have decreased lower extremity edema by 12/18/24. Patient will maintain decreased lower extremity edema through 12/25/24 Congestive Heart Failure Progressing No Patient/Caregiver will verbalize understanding of daily interventions to reduce exacerbations and manage chronic disease Description: - Patient will verbalize understanding of daily interventions to reduce exacerbations manage chronic disease by 12/18/24. Patient will verbalize understanding of daily interventions to manage chronic disease by 12/25/24 Congestive Heart Failure Progressing No Interventions Intervention Associated Problem/Goal Status Variance Visit Notes Instruct on Management of Pain Description: - Teach principles of pain management and involve Patient in developing pain control regimen. - Instructed on non-pharmacological pain reduction techniques. - Instruct Patient on the cause(s) of pain. - Instruct Patient to call Home Health for unsatisfactory pain relief. - Offer written material related to pain medication to Patient. - Instruct Patient on administration and safe keeping of pain medications and the need to keep accurate records of dosages and times. - Provide Patient with a recording tool to enter pain level, situation, medication dosage, and effect of administered medications. Problem:Pain/Physica l Discomfort Goal:Patient's pain/physical discomfort will be reduced to the level of patient's stated goal. Completed Verbalized understanding Assess Pain Description: -Perform comprehensive pain assessment of patient's level of pain using Numeric pain scale and assess effectiveness of current pain regimen. -Current medical management for pain is gabapentin. If no changes or concerns check complete (see Pain Assessment). Problem:Pain/Physica l Discomfort Goal:Patient's pain/physical discomfort will be reduced to the level of patient's stated goal. Completed Hospitalization Risk Description: Instruct Patient in minimizing hospitalization risk related to More than 1 Hospitalization or ED visit in past 12 months, History of Falls, Heart Failure, COPD, Discharged from Hospital or SNF, Home Safety Risks, Needs help managing Medications, More than 2 Secondary Diagnoses, ADL Assistance Needed, Dyspnea, Non-Compliance with Medication Regime and Depression. Problem:Collaboratio n of Care Goal:Hosptial Readmission Reduction Completed Assess Vital Signs Description: Obtain and record vital signs. Report to MD. BP:??systolic blood pressure <90 or >160; diastolic blood pressure <60 or >90.?? Temperature:?? >100.5 F.?? Pulse: <60 or >100 bpm.??Respiratory Rate:?? <12 or >28 /min.?? SPO2: <90%. May check SPO2 as needed for initial assessment or dyspnea. ?? Problem:Collaboratio n of Care Goal:Patient safety met through collaboration for safe care. Completed Insurance Verification Description: Verify with patient/caregiver current insurance coverage. Problem:Collaboratio n of Care Goal:Patient safety met through collaboration for safe care. Completed No changes Care Coordination Description: Clinician to review plan of care with patient/caregivers(s). Patient/Caregiver(s) agree(s) to plan of care and agrees to participate in care.??Disciplines RN Problem:Collaboratio n of Care Goal:Patient safety met through collaboration for safe care. Completed Plan for Next Visit Description: Next visit plan summation Problem:Collaboratio n of Care Goal:Patient safety met through collaboration for safe care. Completed Next visit scheduled 12/25/24 for SN. Patient aware of and agreeable to plan. Advised to call Agency for non-emergent questions/concerns. Skilled Assessment Risk for Injury Description: Evaluate patient's home environment for potential safety risks, and educate Patient on identified safety risks. Problem:Collaboratio n of Care Goal:Patient safety met through collaboration for safe care. Completed Instruct diet Description: Instruct on Low Salt diet and any fluid restrictions/requiremen ts. Problem:Collaboratio n of Care Goal:Nutritional Status for Optimal Health Completed Medication Reconciliation Description: - Review and identify unnecessary therapeutic duplication. Each clinician to perform bottle check weekly on their first visit of the week. - Patient to take medications from pill bottles set up by Patient Problem:Collaboratio n of Care Goal:Patient verbalizes understanding of medication regimen Completed Medication reconciliation performed without weekly bottle check. Medication Management Description: - Assess Patient ability to manage medications. Provide detailed instruction on proper administration and medication management. - Instruct Patient in medication administration, purpose, dosages, preparation, scheduling, side effects, food/drug & drug/drug interactions, storage, and potential complications. Problem:Collaboratio n of Care Goal:Patient verbalizes understanding of medication regimen Completed Verbalized understanding Ensure no smoking materials are present Description: Ensure no smoking materials are present, including both tobacco and vaping. Problem:Oxygen Safety/Precautions Goal:Understanding of Oxygen Safety Completed Instruct/educate on O2 equipment storage Description: Instruct Patient regarding safe oxygen storage and ensure O2 is stored properly per policy. Oxygen delivered via concentrator. Document how many portable tanks are present. Problem:Oxygen Safety/Precautions Goal:Understanding of Oxygen Safety Completed No Smoking signs posted Description: Ensure no smoking signs are posted at entrance. Problem:Oxygen Safety/Precautions Goal:Understanding of Oxygen Safety Completed {HH SMOKING SIGNS YES Instruct oxygen Description: Instruct Patient in the use of home oxygen therapy, safe/proper use of equipment, and precautions such as but not limited to keeping oil/petroleum products, grease and flammable material away from oxygen, avoiding using aerosols.??Place oxygen cylinders in appropriate stand to prevent tipping or secured to the wall or placed on their side on the floor.??Store in a well-ventilated area and not under outside porches or decks or in the trunk of a car. Problem:Oxygen Safety/Precautions Goal:Understanding of Oxygen Safety Completed Instruct on Fall Prevention Description: Educate Patient about fall prevention. Problem:Fall Precautions Goal:Patient/caregiv er maintains a safe environment. Completed Teach Scheduled/Assisted Toileting Description: Teach Patient importance of frequent assisted toileting to avoid falls when unassisted. Problem:Fall Precautions Goal:Patient/caregiv er maintains a safe environment. Completed Report Falls to Provider within 24 Hours Description: Report witnessed or reported falls to provider within 24 hours. Problem:Fall Precautions Goal:Patient/caregiv er maintains a safe environment. Completed Patient reports no falls Assess Appropriateness for Homecare Description: Assess Patient ability to remain safe in current environment. Problem:Fall Precautions Goal:Patient/caregiv er maintains a safe environment. Completed Teach Safe Use of Assistive Devices Description: Assess DME needs and appropriateness of current DME used walker. Problem:Fall Precautions Goal:Patient/caregiv er maintains a safe environment. Completed Disease Management Description: - Instruct Patient in monitoring edema, elevating extremities above level of heart, wearing appropriate support stockings. Problem:Congestive Heart Failure Goal:Patient will have decreased lower extremity edema Completed Instruct Energy Conservation Description: - Instruct Patient on energy conservation strategies and use of assistive devices to minimize energy expenditure. Problem:Congestive Heart Failure Goal:[facility] will verbal[facility] understanding of daily interventions to reduce exacerbations and manage chronic disease Completed Verbalized understanding Instruct Daily Weighing Description: - Instruct Patient on daily weights, energy conservation, support hose, signs and symptoms of complications, and when to notify home care agency and/or physician.- Instruct to notify physician/RN if weight gain is 2 pounds or more in 1 day or 5 pounds or more in 1 week.- Instruct to notify physician/RN of blood pressure fluctuations, new or worsening shortness of breath, new or worsening chest pain. Problem:Congestive Heart Failure Goal:[facility] will verbalize understanding of daily interventions to reduce exacerbations and manage chronic disease Completed Assess Signs and Symptoms Description: Assess apical pulse, radial pulse, heart rate, subjective reports of dizziness, diaphoresis, nausea, episodes of syncope or near-syncope, and cognitive changes. Problem:Congestive Heart Failure Goal:[facility] will verbalize understanding of daily interventions to reduce exacerbations and manage chronic disease Completed documented in this encounter Care Teams Phlebotomy Manager Relationship Specialty Start Date End Date Murali Hernandez DO [address] [place] [address] PCP - General FAMILY PRACTICE 08/18/24 documented as of this encounter
--- OUTSIDE RECORDS SUMMARY | 2024-12-19 21:08 | XMS_ITS | CONTINUITY OF CARE DOCUMENT ---
Author Name kate love Address Unknown Organization [facility] Address [address] [place] [address] Phone [phone] Care Team Providers Care Prisoner Classification Interviewer Name Role Phone [email or web address] Unavailable Unavailable INSURANCE PROVIDERS Payer name Policy type / Coverage type [facility] republican ID MELISSA- OPEN ACCESS/PPO Other [id number]
--- OUTSIDE RECORDS SUMMARY | 2024-12-19 21:08 | XMS_ITS | Referral Summary ---
Author Organization [facility] Address [address] [place] [address] Care Team Providers Care Sap Pi Developer Name Role Phone [place] VillageMurali Boyd DO Primary Care Provider + Nato Medrano MD Unavailable [phone] Kasey Krishnan Unavailable Encounters Date Type Department Care Team Description 11/14/2024 Telephone [facility] Medical Group Cardiology [address] [place] [phone] Brook Acosta MD from Last 3 Months Allergies Active Allergy Reactions Criticality Noted Date Comments Cefdinir Diarrhea Low 09/22/2022 Codeine Nausea & Vomiting Low 02/25/2019 Codeine Sulfate Nausea & Vomiting Low 03/25/2019 Dicyclomine Diarrhea Low 03/13/2020 Mushroom Unknown 09/27/2023 Other Cough Low 02/06/2023 Sinus issues and cough from hand sanitizers Hydrocodone-Acetaminoph en Nausea & Vomiting Low 02/25/2019 Medications omeprazole-sodiu m bicarbonate (ZEGERID) 40-1.1 mg-gram per capsule Take 1 capsule by mouth daily as needed PRN Active bumetanide (BUMEX) 2 mg tablet Take 1 tablet (2 mg total) by mouth 2 (two) times a day 60 tablet 3 01/16/20 25 Active cyanocobalamin (Vitamin B-12) 1,000 mcg/mL injectionIndicat ions:Vitamin B12 Deficiency Inject 1 mL (1,000 mcg total) under the skin daily for 4 doses 4 mL 3 01/16/20 25 Active cyanocobalamin (Vitamin B-12) 1,000 mcg/mL injectionIndicat ions:Vitamin B12 Deficiency Inject 1 mL (1,000 mcg total) under the skin every 30 (thirty) days Start injection once every 30 days on 12/01/23. 1 mL 4 Active albuterol HFA (PROVENTIL HFA,VENTOLIN HFA,PROAIR HFA) 90 mcg/actuation inhaler INHALE 2 PUFFS BY MOUTH EVERY 4 HOURS NEEDED FOR WHEEZING OR SHORTNESS OF BREATH 8.5 g 1 3 Active aspirin (Adult Low Dose Aspirin) 81 mg enteric coated tablet Take 1 tablet (81 mg total) by mouth daily 30 tablet 4 Active atorvastatin (LIPITOR) 20 mg tablet Take 1 tablet (20 mg total) by mouth daily 90 tablet 1 4 Active carvediloL (COREG) 6.25 mg tablet Take 1 tablet (6.25 mg total) by mouth 2 (two) times a day with meals 180 tablet 4 01/30/20 25 Active lisinopriL (PRINIVIL,ZESTRI L) 20 mg tablet Take 1 tablet (20 mg total) by mouth daily Provider no longer at this location 90 tablet 4 Active Active Problems Problem Noted Date Diagnosed Date Protein-calorie malnutrition, severe (CMS/HCC) 1 12/21/2022 Altered mental status, unspe cified altered mental status type 09/25/2023 Chronic heart failure with p reserved ejection fraction (CMS/HCC) 09/14/2023 Assessment & Plan (11/09/2023 5:28 PM WATER FILTRATION TECHNICIAN): stable Primary hypertension 09/14/2023 Assessment & Plan (11/09/2023 5:26 PM WATER FILTRATION TECHNICIAN): Patient is well controlled. Continue current treatment. Morbid (severe) obesity due to excess calories 1 Hyponatremia 08/24/2023 Coronary artery disease invo lving [place] coronary artery of [place] heart without angina pectoris 03/10/2023 Assessment & Plan (11/09/2023 5:27 PM WATER FILTRATION TECHNICIAN): Patient is well controlled. Continue current treatment. H/O cardiomyopathy 03/10/2023 PAD (peripheral artery disease) 03/10/2023 Assessment & Plan (11/09/2023 5:26 PM WATER FILTRATION TECHNICIAN): Patient is well controlled. Continue current treatment. Mixed hyperlipidemia 03/10/2023 Acute non-recurrent frontal sinusitis 01/20/2023 Assessment & Plan (01/20/2023 12:51 PM WATER FILTRATION TECHNICIAN): Keflex Tessalon perles Abnormal stress test 01/02/2023 Abnormal echocardiogram 11/23/2022 Aortic valve regurgitation 11/23/2022 Pulmonary hypertension 11/23/2022 Cardiomyopathy 11/23/2022 Acute on chronic HFrEF (hear t failure with reduced ejection fraction) 11/23/2022 Assessment & Plan (09/06/2023 4:57 PM CDT): Meds reviewed and reconciled. She also needs to be set up for pulmonary function tests I will get her referral to pulmonology. She is down to 2 cigarettes per day. Peripheral edema 08/11/2022 Assessment & Plan (06/21/2023 2:16 PM CDT): Chronic condition not at goal. She needs more intense compression therapy. I will get her medium intensity compression stockings Assessment & Plan (08/11/2022 3:29 PM CDT): X ray b feet ankles bnp Hepatic steatosis 08/11/2022 Assessment & Plan (08/11/2022 3:38 PM CDT): She saw GI. She has been taking vitamin-E. No other orders from there. I will check liver function tests. Sciatica of right side 12/03/2021 Assessment & Plan (12/03/2021 11:29 AM WATER FILTRATION TECHNICIAN): Add mobid 7.5 Allergic rhinitis 12/03/2021 Assessment & Plan (06/21/2023 2:16 PM CDT): Chronic. Continues. I will add montelucast Assessment & Plan (12/03/2021 11:25 AM WATER FILTRATION TECHNICIAN): Continue singulair Annual physical exam 12/04/2020 Assessment & Plan (08/11/2022 3:25 PM CDT): Routine lab Mammogram Assessment & Plan (12/03/2021 11:24 AM WATER FILTRATION TECHNICIAN): Routine lab She is having sciatica. She has been seeing a chiropractor but due to the COVID outbreak she has withheld treatment for now. She will get back. I am going to add pain medication to get her through Mammogram Assessment & Plan (12/04/2020 10:51 AM WATER FILTRATION TECHNICIAN): shingrex Mammogram Declines colonoscopy Dyspnea on exertion 12/21/2017 Assessment & Plan (09/06/2023 5:01 PM CDT): Check pft Refer to pulmonology Remains on 2l 02 Finding of above normal blood pressure 7 Obesity 11/02/2017 Tobacco dependence syndrome 11/02/2017 Fatigue 11/01/2017 History of multiple allergies 11/01/2017 Chronic sinusitis 10/26/2017 Assessment & Plan (03/27/2020 10:42 AM CDT): omnicef 300 mg bid 7 days Other specified hypothyroidism 10/26/2017 Overview (09/21/2022): Last Assessment & Plan: Routine lab Assessment & Plan (08/11/2022 3:25 PM CDT): tsh Free t4 Assessment & Plan (12/03/2021 11:24 AM WATER FILTRATION TECHNICIAN): She needs a TSH and free T4 to evaluate the thyroid Assessment & Plan (03/27/2020 10:42 AM CDT): Routine lab History of tubal ligation 10/26/2017 Osteoarthritis 10/26/2017 Solitary pulmonary nodule 10/26/2017 Vitamin D deficiency 10/26/2017 Aortic valve defect 10/17/2017 Aortic valve stenosis 10/17/2017 Resolved Problems Problem Noted Date Diagnosed Date Resolved Date Abdominal mass, right upper quadrant 12/04/2020 12/03/2021 Assessment & Plan (12/04/2020 10:58 AM WATER FILTRATION TECHNICIAN): Ct abdomen and pelvis Immunizations Name Administration Dates Next Due Influenza, Quadrivalent, Crystal l Culture-based MDCK, Preservative Free, Antibiotic Free, Intramuscular 09/29/2021 Influenza, Quadrivalent, Spl it, Intramuscular 09/14/2019,08/29/2012 Influenza, Quadrivalent, Spl it, Preservative Free, Intramuscular 09/06/2023,09/07/2020,09/14/2019,09/05 Influenza, Trivalent, IM (MDV) 09/08/2014,2012 Influenza, Trivalent, Preser vative Free, Intramuscular 09/29/2016,09/16/2015 Influenza, Unspecified 09/21/2022(Deferr ed: Patient ill today),08/20/2022(Deferred: Patient Refused) Social History Tobacco Use Types Packs/Day Years Used Date Smoking Tobacco: Some Days Cigarettes 0.8 15.1 Smokeless Tobacco: Never Tobacco Cessation:Ready to Q uit: Not Asked; Counseling Given: Not Answered Comments:She states I did until last hospital visit Alcohol Use Standard Drinks/Week Comments Never 0 (1 standard drink = 0.6 oz pur e alcohol) [facility] Utilities Answer Date Recorded In the past 12 months has [employer] Sched[employer], gas, oil, or water [employer] threatened to shut off services in your home? No 09/15/2023 Social Connection and Isolat ion Panel [NHANES] Answer Date Recorded In a typical week, how many times do you talk on the phone with family, friends, or neighbors? More than three times a week 09/15/2023 How often do you get togethe r with friends or relatives? More than three times a week 09/15/2023 How often do you attend chur ch or mandaen services? 1 to 4 times per year 09/15/2023 Do you belong to any clubs o r organizations such as tenriism groups, unions, fraternal or athletic groups, or school groups? Yes 09/15/2023 How often do you attend meet ings of the clubs or organizations you belong to? 1 to 4 times per year 09/15/2023 Are you , , di vorced, , never , or living with a partner? 09/15/2023 AUDIT-C Answer Date Recorded Q1: How often do you have a drink containing alc ohol? Never 11/09/2023 Average Number of Drinks Not on file 023 Frequency of Binge Drinking Not on file 10/21 Overall Financial Resource Strain (CARDIA) Answe r Date Recorded How hard is it for you to pa y for the very basics like food, housing, medical care, and heating? Not hard at all 09/15/2023 PHQ-2 Answer Date Recorded PHQ-2 Total Score (If total score is 3 or more points, staff should administer the PHQ-9) 2 10/27/2023 Hunger Vital Sign Answer Date Recorded Within the past 12 months, y ou worried that your food would run out before you got the money to buy more. Never true 09/15/20 23 Within the past 12 months, t he food you bought just didn't last and you didn't have money to get more. Never true 09/15/2023 PRAPARE - Transportation Answer Date Re corded In the past 12 months, has l ack of transportation kept you from medical appointments or from getting medications? No 08/21 In the past 12 months, has l ack of transportation kept you from meetings, work, or from getting things needed for daily living? No 09/15/2023 Housing Stability Vital Sign Answer Jhonny e Recorded In the last 12 months, was t here a time when you were not able to pay the mortgage or rent on time? No 09/15/2023 In the last 12 months, how many places have you lived? 1 09/15/2023 In the last 12 months, was t here a time when you did not have a steady place to sleep or slept in a detention (including now)? No 09/15/2023 Personal Safety Answer Date Recorded Have you ever been in or are you currently in a harmful physical or emotional relationship or is someone making you feel afraid or unsafe? Denies 09/04/2024 Comments No Sex and Gender Information Value Date Recorded Sex Assigned at Not on file Legal Sex Female 12:17 PM WATER FILTRATION TECHNICIAN Gender Identity Female 08/30/2022 1:15 PM CDT Sexual Orientation Not on file Last Filed Vital Signs Vital Sign Reading Time Taken Comments Blood Pressure 140/52 01/16/2024 2:31 PM WATER FILTRATION TECHNICIAN Pulse 73 01/16/2024 2:31 PM WATER FILTRATION TECHNICIAN Temperature 36.6 ??C (97.9 ??F) 11/09/2023 4:48 PM CS T Respiratory Rate 18 09/04/2024 11:32 PM CDT Oxygen Saturation 90% 01/16/2024 2:31 PM WATER FILTRATION TECHNICIAN Inhaled Oxygen Concentration - - Weight 81.6 kg (180 lb) 09/04/2024 11:32 PM CDT Height 162.6 cm (5' 4 ) 09/04/2024 11:32 PM CDT Body Mass Index 30.9 09/04/2024 11:32 PM CDT Plan of Treatment Not on file Medical Devices Implanted Type Area Deer Farmer Device Identifier Shelf Expiration Date Model / Serial / Lot Secure Mentem Device Closure Vascade Od5 Fr Femoral Artery [id number] - [id number] Implanted:Qty: 1 on 02/07/2023 by Brook Acosta MD at [facility] [employer] [facility] 11/10/2024 [id number] / / [id number] Insurance [facility] PLAN [facility] PLAN ALIA PLUNKETT [facility] Advance Directives For more information, please contact: [phone] Documents on File Type Date Recorded Patient Recreation Professor Expl anation ADVANCE DIRECTIVE 10/30/2023 11:11 PM POW ER OF NUCLEAR PLANT TECHNICAL ADVISOR-MEDICAL Power of Assistant Track Coach 09/24/2023 7:56 PM * Full Code (Latest Code Status on File) Date Activated Date Inactivated Comments 09/25/2023 6:45 AM 10/27/2023 10:17 PM * Full Code Date Activated Date Inactivated Comments 09/15/2023 1:43 AM 09/18/2023 5:39 PM * Full Code Date Activated Date Inactivated Comments 09/07/2023 8:41 AM 09/10/2023 5:04 PM * Full Code Date Activated Date Inactivated Comments 08/30/2023 12:18 PM 08/30/2023 10:00 PM * Full Code Date Activated Date Inactivated Comments 02/07/2023 1:22 PM 02/07/2023 6:57 PM Healthcare Agents on File Name Relationship Healthcare Agent Relationshi p Communication Wenceslao Cody Other Health Care Agent Care Teams Sap Pi Developer Relationship Specialty Start Date End Date Murali Hernandez DO PCP - General Family Medicine 03/25/19 [place] [address] [facility] [address] [place] [address] Consulting Physician Nephrology 08/30/23 Kasey Krishnan PA [address] [place] [address] Physician Job Placement Officer Medical Oncology 10/27/23
--- OUTSIDE RECORDS SUMMARY | 2024-12-19 21:08 | XMS_ITS | Clinical Summary ---
Author Organization [facility] Address [address] [place] [address] Care Team Providers Care Custom Furrier Name Role Phone VirginiaMurali Boyd DO Primary Care Provider + Nato Medrano MD Unavailable [phone] Kasey Krishnan Unavailable [phone] Allergies Active Allergy Reactions Criticality Noted Date [...] 09/14/2023 Assessment & Plan (11/09/2023 5:28 PM BIT SETTER): stable Primary hypertension 09/14/2023 Assessment & Plan (11/09/2023 5:26 PM BIT SETTER): Patient is well controlled. Continue current treatment. Morbid (severe) obesity due to excess calories 1 Hyponatremia 08/24/2023 Coronary artery disease invo lving [place] coronary artery of [place] heart without angina pectoris 03/10/2023 Assessment & Plan (11/09/2023 5:27 PM BIT SETTER): Patient is well controlled. Continue current treatment. H/O cardiomyopathy 03/10/2023 PAD (peripheral artery disease) 03/10/2023 Assessment & Plan (11/09/2023 5:26 PM BIT SETTER): Patient is well controlled. Continue current treatment. Mixed hyperlipidemia 03/10/2023 Acute non-recurrent frontal sinusitis 01/20/2023 Assessment & Plan (01/20/2023 12:51 PM BIT SETTER): Keflex Tessalon perles Abnormal stress test 01/02/2023 [...] 12/03/2021 Assessment & Plan (12/03/2021 11:29 AM BIT SETTER): Add mobid 7.5 Allergic rhinitis 12/03/2021 Assessment & Plan (06/21/2023 2:16 PM CDT): Chronic. Continues. I will add montelucast Assessment & Plan (12/03/2021 11:25 AM BIT SETTER): Continue singulair Annual physical exam 12/04/2020 Assessment & Plan (08/11/2022 3:25 PM CDT): Routine lab Mammogram Assessment & Plan (12/03/2021 11:24 AM BIT SETTER): Routine lab She is having sciatica. She has been seeing a chiropractor but due to the COVID outbreak she has withheld treatment for now. She will get back. I am going to add pain medication to get her through Mammogram Assessment & Plan (12/04/2020 10:51 AM BIT SETTER): shingrex Mammogram Declines colonoscopy Dyspnea on exertion [...] t4 Assessment & Plan (12/03/2021 11:24 AM BIT SETTER): She needs a TSH and free T4 [...] 12/03/2021 Assessment & Plan (12/04/2020 10:58 AM BIT SETTER): Ct abdomen and pelvis Encounters Date Type Department Care Team Description 11/14/2024 Telephone [facility] Medical [facility] Cardiology [facility] [phone] Brook Acosta MD from Last 3 Months Immunizations Name Administration Dates Next Due Influenza, Quadrivalent, Crystal l Culture-based MDCK, Preservative Free, Antibiotic Free, Intramuscular 09/29/2021 Influenza, Quadrivalent, Spl it, Intramuscular 09/14/2019,08/29/2012 Influenza, Quadrivalent, Spl it, Preservative Free, Intramuscular 09/06/2023,09/07/2020,09/14/2019,09/05 Influenza, Trivalent, IM (MDV) 09/08/2014,2012 Influenza, Trivalent, Preser vative Free, Intramuscular 09/29/2016,09/16/2015 Influenza, Unspecified 09/21/2022(Deferr ed: Patient ill today),08/20/2022(Deferred: Patient Refused) Surgical History Surgery Date Site/Laterality Comments SINUS SURGERY 11/20/2008 - 11/19/2009 KNEE SURGERY 11/20/1994 - 11/19/1995 Right ABLATION 11/20/2008 - 11/19/2009 TUBAL LIGATION 11/20/1994 - 11/19/1995 US GUIDED THORACENTESIS 12/09/2024 N/A Medical History Medical History Date Comments Hypothyroidism Abnormal echocardiogram Aortic valve regurgitation Cardiomyopathy (HCC) Aortic valve stenosis Abnormal stress test Hypertension Motion sickness Cough SOB (shortness of breath) on exertion GERD (gastroesophageal reflux disease) Arthritis 1992 Chronic kidney disease August 2023 Family History Medical History Relation Name Comments Allergy (severe) Brother Rosendo Shaw Arthritis Brother Rosendo Shaw Diabetes Father Art Hypertension Father Art Pancreatic cancer Father Model Arthritis Mother Anahi Diabetes Mother Anahi Hypertension Mother Anahi Pancreatic cancer Mother Anahi Learning disabilities Son Murali Relation Name Status Comments Brother Rosendo Shaw Father Art Mother Anahi Son Murali Social History Tobacco Use Types Packs/Day Years Used Date Smoking Tobacco: Some Days Cigarettes 0.8 15.1 Smokeless Tobacco: Never Tobacco Cessation:Ready to Q uit: Not Asked; Counseling Given: Not Answered Comments:She states I did until last hospital visit Alcohol Use Standard Drinks/Week Comments Never 0 (1 standard drink = 0.6 oz pur e alcohol) [facility] Utilities Answer Date Recorded In the past 12 months has th e [employer], gas, oil, or water [employer] threatened to shut off services in your [...] often do you attend chur ch or islam services? 1 to 4 times per year 09/15/2023 Do you belong to any clubs o r organizations such as baptism groups, unions, fraternal or athletic groups, or [...] place to sleep or slept in a long-term (including now)? No 09/15/2023 Personal Safety Answer Date Recorded Have you ever been in or are you currently in a harmful physical or emotional relationship or is someone making you feel afraid or unsafe? Denies 09/04/2024 Comments No Sex and Gender Information Value Date Recorded Sex Assigned at Not on file Legal Sex Female 12:17 PM BIT SETTER Gender Identity Female 08/30/2022 1:15 PM CDT Sexual Orientation Not on file Obstetrics History Last Filed Vital Signs Vital Sign Reading Time Taken Comments Blood Pressure 140/52 01/16/2024 2:31 PM BIT SETTER Pulse 73 01/16/2024 2:31 PM BIT SETTER Temperature 36.6 ??C (97.9 ??F) 11/09/2023 4:48 PM CS T Respiratory Rate 18 09/04/2024 11:32 PM CDT Oxygen Saturation 90% 01/16/2024 2:31 PM BIT SETTER Inhaled Oxygen Concentration - - Weight 81.6 kg (180 lb) 09/04/2024 11:32 PM CDT Height 162.6 cm (5' 4 ) 09/04/2024 11:32 PM CDT Body Mass Index 30.9 09/04/2024 11:32 PM CDT Plan of Treatment Health Maintenance Due Date Last Done Comments Breast Cancer Screening-Mammogram 1968 Cervical Cancer Screening 1968 Colon Cancer Screening-Colonoscopy 1968 Hepatitis C Screening 1968 Pneumococcal vaccine <65 (1 of 2 - PCV) 02/16/1974 DTaP/Tdap/Td Vaccine (1 - Tdap) 02/16/1979 Hepatitis B Screening 02/16/1986 Zoster Vaccine (1 of 2) 02/16/2018 Regular Well Visit/Exam 18-64 08/11/2023, 12/04/2020, 12/04/2020 Influenza Vaccine (#1) 2024 3, 09/29/2021, 09/07/2020, Additional history exists Depression Screening 09/24/2024 09/24/2023, 09/24/2023, 08/11/2022, Additional history exists Medical Devices Implanted Type Area Center Customer Service Associate Device Identifier Shelf Expiration Date Model / Serial / Lot [employer] Device Closure Vascade Od5 Fr Femoral Artery [id number] - [id number] Implanted:Qty: 1 on 02/07/2023 by Brook Acosta MD at [facility] [employer] 11/10/2024 [id number]-0 [id number] / / [id number] 3A Insurance [facility] PLAN ALIA PLUNKETT [id number] [facility] PLAN ALIA PLUNKETT [id number] Advance Directives For more information, please contact: [phone] Documents on File Type Date Recorded Patient Sign Language Interpreter Expl anation ADVANCE DIRECTIVE 10/30/2023 11:11 PM POW ER OF DRINK WAITER-MEDICAL Power of Brand Marketing Manager 09/24/2023 7:56 PM * Full Code (Latest [...] Cody Other Health Care Agent Care Teams Custom Furrier Relationship Specialty Start Date End Date Murali Hernandez DO PCP - General Family Medicine 03/25/[address] [place] [address] [facility] [address] [place] [address] Consulting Physician Nephrology 08/30/23 Kasey Krishnan PA [address] [place] [address] Physician Canvas Shrinker Medical Oncology 10/27/23
[2024-12-19 21:47] VITALS: BP 152/41; PULSE 63; RESP 16; TEMP 36.7; O2SAT 95
--- NOTE | 2024-12-19 21:52 | ECG_ITS ---
Test Date: 2024-12-19 21:53:58 Measurements Intervals [place] Rate: 55 P: 0 VA: 0 QRS: -31 QRSD: 88 T: 33 QT: 429 QTc: 413 Interpretive Statements SUSPECT SINUS BRADYCARDIA, HOWEVER, BASELINE ARTIFACT LIMITS INTERPRETATION MARKED LEFT AXIS DEVIATION [QRS AXIS < -30] POSSIBLE ANTERIOR MYOCARDIAL INFARCTION , PROBABLY OLD [30 ms Q WAVE IN V3/V4, OR R < 0.2 mV IN V4] No previous ECG available for comparison Electronically Signed On 12-20-2024 14:24:25 LAMP TESTER AND INSPECTOR by Juan Ceballos M.D.
[2024-12-19 21:56] VITALS: O2SAT 92
--- NOTE | 2024-12-19 22:09 | ECG_ITS ---
Test Date: 2024-12-19 22:19:19 Measurements Intervals [place] Rate: 53 P: 35 [place]: 227 QRS: -35 QRSD: 91 T: 37 QT: 455 QTc: 428 Interpretive Statements SINUS BRADYCARDIA WITH FIRST DEGREE AV BLOCK MARKED LEFT AXIS DEVIATION [QRS AXIS < -30] POSSIBLE ANTERIOR MYOCARDIAL INFARCTION , PROBABLY OLD [30 ms Q WAVE IN V3/V4, OR R < 0.2 mV IN V4] Compared to ECG 12/19/2024 21:53:58 First degree AV block now present Electronically Signed On 12-20-2024 14:25:35 INTERVENTIONAL NURSE by Juan Ceballos M.D.
[2024-12-19 22:13] LABS: Basophils Absolute Auto 0.1 K/mm3 (0.0-0.1); Basophils Percent Auto 0.6 % (0.2-1.2); Eosinophils Absolute Auto 0.1 K/mm3 (0-0.3); Eosinophils Percent Auto 0.7 % (0-4.4); Hematocrit 40.1 % (37.0-47.0); Hemoglobin 12.6 g/dL (12.0-15.0); Immature Granulocyte Absolute 0.03 K/mm3 (0.00-0.031); Immature Granulocyte Percent A 0.4 % (0-0.5); Lymphocytes Percent Auto 15.8 % (18.3-44.2); Mean Corpuscular HGB Conc 31.4 g/dl (32-36); Mean Corpuscular Hemoglobin 24.9 pg (26-34); Mean Corpuscular Volume 79.1 fl (80-100); Mean Platelet Volume 9.5 fl (7.4-10.4); Monocytes Absolute Auto 0.4 K/mm3 (0.1-0.6); Monocytes Percent Auto 5.2 % (2.6-8.5); Neutrophils Absolute Auto 6.4 K/mm3 (1.3-6.7); Neutrophils Percent Auto 77.3 % (45.5-73.1); Platelet Count Result 244 k/mm3 (150-375); Red Blood Count 5.07 M/mm3 (4.2-5.4); White Blood Count 8.2 K/mm3 (4.5-10.0)
[2024-12-19 22:19] LABS: INR 1.2; Prothrombin Time 15.4 Seconds (11.1-14.7)
[2024-12-19 22:20] LABS: Partial Thromboplastin Time 37.4 Seconds (22.3-36.8)
[2024-12-19 22:48] LABS: Alanine Aminotransferase 6 U/L (6-35); Albumin Level 3.7 g/dL (3.5-5.1); Alkaline Phosphatase 114 U/L (38-126); Anion Gap 8 mmol/L (4-12); Aspartate Amino Transferase 14 U/L (14-36); Bilirubin,Total 0.8 mg/dL (0.2-1.3); Blood Urea Nitrogen 7 mg/dL (7-17); Calcium 9.8 mg/dL (8.4-10.2); Carbon Dioxide 29 mmol/L (22-30); Chloride 93 mmol/L (98-107); Estimated Glomerular Filt Rate > 60; Glucose 117 mg/dL (65-110); Lipase 23 U/L (23-300); Potassium 4.9 mmol/L (3.4-5.0); Sodium 130 mmol/L (137-145)
[2024-12-19 23:00] LABS: Troponin I < 0.012 ng/mL (0.000-0.034)
[2024-12-20] VITALS (12 sets, daily range): BP systolic 123–168; BP diastolic 40–57; PULSE 52–68; RESP 15–20; TEMP 36.4–36.7; O2SAT 94–98; BMI 31.7
--- NOTE | 2024-12-20 | ECHO_ITS ---
Patient Info Name: Karlie Cody Age: 54 years : 1970 Gender: Female Ht: 65 in Wt: 190 lbs BSA: 2.02 m2 HR: 57 bpm BP: 155 / 57 mmHg Technical Quality: Poor Exam Date: 12/20/2024 11:12 AM Exam Location: Echo Lab Patient Status: Inpatient Admit Date: 12/20/2024 Staff Ordering Physician: Juan Ceballos MD (lexi/amparo) Senior C Web Developer: Magda Byrne RDCS Attending Provider: Carol Stewart MD Referring Physician: Tucker GARSIA; Exam Type: CA echo dop color flow w con Study Info Indications - CHF Complete two-dimensional, color flow and Doppler transthoracic echocardiogram is performed with contrast to opacify the left ventricle and to improve the deliniation of the left ventricle endocardial borders. Contrast/Agitated Saline Contrast/Ag. Saline: Definity Amount: 2.00 ml Existing IV Access: Yes Reason for Poor Study: poor echocardiographic windows Summary 1. Left ventricular chamber dimension is normal. 2. Left ventricular systolic function is normal, estimated at 60-65%. 3. There is moderately increased left ventricular wall thickness. 4. The left ventricular diastolic function is grade I diastolic dysfunction. 5. Right ventricular systolic function is normal. 6. Left atrial chamber dimension is mildly enlarged. 7. Right atrial chamber dimension is mildly enlarged. 8. There is moderate aortic valve regurgitation. 9. There is mild mitral valve regurgitation. 10. There is mild tricuspid valve regurgitation. 11. Pulmonary hypertension. Estimated pulmonary arterial systolic pressure is 44 mmHg. Left Ventricle Left ventricular chamber dimension is normal. Left ventricular systolic function is normal, estimated at 60-65%. There is moderately increased left ventricular wall thickness. The left ventricular diastolic function is grade I diastolic dysfunction. Right Ventricle Right ventricular chamber dimension is normal. Right ventricular systolic function is normal. Left Atria Left atrial chamber dimension is mildly enlarged. Right Atria Right atrial chamber dimension is mildly enlarged. Atrial Septum Intact interatrial septum visualized by color flow imaging. Aortic Valve The aortic valve is not well visualized. There is no aortic valve stenosis. There is moderate aortic valve regurgitation. Pulmonic Valve The pulmonic valve is not well visualized. There is no pulmonic regurgitation. Mitral Valve There is mild mitral valve regurgitation. Tricuspid Valve There is mild tricuspid valve regurgitation. Pulmonary hypertension. Estimated pulmonary arterial systolic pressure is 44 mmHg. Pericardium/Pleural There is no pericardial effusion. Inferior Vena Cava Dilated inferior vena cava with <50% collapse upon inspiration consistent with elevated right atrial pressure, 15 mmHg. Aorta The aortic root size at the sinus of Valsalva is normal. Left Ventricular Outflow Tract Name Value Normal LVOT 2D LVOT Diameter 2.07 cm LVOT Doppler LVOT Peak Gradient 8 mmHg LVOT Mean Gradient 4 mmHg LVOT VTI 36.71 cm LVOT VTI/AV VTI Ratio 0.72 LVOT Stroke Volume 123.71 ml LVOT CO 7.12 l/min LVOT CI 3.53 L/min/m2 Pulmonic Valve Name Value Normal RVOT Doppler RVOT Peak Gradient 4 mmHg PV Doppler PV Peak Gradient 3 mmHg Mitral Valve Name Value Normal MV Doppler MV Peak Gradient 6 mmHg MV Mean Gradient 3 mmHg MV Decel Cavalier 558.97 cm/s2 MV PHT 0 s MV Area (PHT) 4.26 cm2 4.00-5.00 MV Area (Cont Eq VTI) 2.87 cm2 MV Diastolic Function MV E Peak Velocity 99.46 cm/s MV A Peak Velocity 82.82 cm/s MV E/A 1.20 MV Decel Time 0 s MV Annular TDI MV E/e' (Septal) 16.53 <=8.00 MV E/e' (Lateral) 15.86 <=8.00 MV E/e' (Average) 16.19 Tricuspid Valve Name Value Normal TV Regurgitation Doppler TR Peak Velocity 267.33 cm/s TR Peak Gradient 26 mmHg Estimated PAP/RSVP RA Pressure 15 mmHg <=5 PA Systolic Pressure 44 mmHg <36 RV Systolic Pressure 44 mmHg <36 Aorta Name Value Normal Ascending Aorta Ao Root Diameter (MM) 3.83 cm Ao Root Diam Index (MM) 1.90 cm/m2 Aortic Valve Name Value Normal AV Doppler AV Peak Velocity 212.54 cm/s AV Peak Gradient 15 mmHg AV Mean Gradient 8 mmHg AV VTI 50.84 cm AV Area (Cont Eq VTI) 2.43 cm2 >=3.00 AV Area (Cont Eq Jamshid) 2.26 cm2 AV Regurgitation 2D LVOT Area 3.37 cm2 AV Regurgitation Doppler AR Decel Time 2 s AR Decel Cavalier 265.95 cm/s2 AR PHT 0 s Ventricles Name Value Normal LV Dimensions 2D/MM IVS Diastolic Thickness (2D) 1.79 cm 0.60-1.00 LVID Diastole (2D) 4.37 cm 3.80-5.20 LVIW Diastolic Thickness (2D) 2.56 cm 0.60-0.90 LVID Systole (2D) 3.41 cm 2.20-3.50 LVOT Diameter 2.07 cm LV Mass (2D Cubed) 483.61 g 67.00-162.00 LV Mass Index (2D Cubed) 0.02 g/cm2 0.00-0.01 Relative Wall Thickness (2D) 1.17 LV Fractional Shortening/Ejection Fraction 2D/MM LV Fractional Shortening (2D) 24 % 27-45 LV EF (2D Teichdinaz) 47 % 54-74 LV Diastolic Volume (4C MOD) 146.82 ml LV EF (4C MOD) 50 % LV Diastolic Volume (2C MOD) 166.52 ml LV EF (2C MOD) 75 % LV Diastolic Volume (BP MOD) 156.57 ml 46.00-106.00 LV Diastolic Volume Index (BP MOD) 0.08 l/m2 0.03-0.06 LV Systolic Volume (BP MOD) 56.07 ml 14.00-42.00 LV Systolic Volume Index (BP MOD) 0.03 l/m2 0.01-0.02 LV EF (BP MOD) 64 % 54-74 LV Diastolic Length (4C) 9.25 cm LV Systolic Length (4C) 7.58 cm LV Stroke Volume (4C MOD) 72.85 ml Atria Name Value Normal LA Dimensions LA Dimension (MM) 5.07 cm 2.70-3.80 LA Volume (4C A-L) 74.70 ml LA Volume (BP A-L) 78.39 ml RA Dimensions RA Area (4C) 26.79 cm2 <=18.00 Report Signatures
--- NOTE | 2024-12-20 00:40 | ED_ITS ---
HPI - Chest Pain General Chief Complaint: Chest Pain <Alberto Bustillo PA-C - Last Filed: 12/20/24 03:11> Stated Complaint: chest pain since 1600 <Alberto Bustillo PA-C - Last Filed: 12/20/24 03:11> Time Seen by Provider: 12/20/24 00:34 <Alberto Bustillo PA-C - Last Filed: 12/20/24 03:11> Source: patient <RODNEY Loera Last Filed: 12/20/24 03:11> Mode of arrival: EMS <RODNEY Loera Last Filed: 12/20/24 03:11> Limitations: no limitations <Alberto Bustillo PA-C - Last Filed: 12/20/24 03:11> History of Present Illness HPI narrative: This is a 54-year-old female who presents to the ED via EMS for chief complaint of chest pain beginning around 1600. Patient reports the pain is on the left side of her chest. She states that it comes and goes and only lasts for a few seconds when it comes on. States it does not radiate. States that she was just sitting around when the pain started. Patient intermittently interjects the conversation to tell me about things like the phones in the waiting room being bugged and that she does not want to be seen by a male nurse. She will then continue to give some history, however seems somewhat limited due to mental status. She is alert,oriented x 4. She is able to tell me that she has had some shortness of breath and is able to tell me that she takes and water pill but is unsure what it is. States that she uses oxygen at home and keeps it just above the 0 line. Patient received 324 aspirin EN route. <RODNEY Loera Last Filed: 12/20/24 03:11> Related Data Home Medications: Home Medications ?Medication ?Instructions ?Recorded ?Confirmed ?Last Taken ?Type albuterol sulfate 90 mcg/actuation 2 puff inhalation QID PRN sob 05/15/24 12/20/24 Unknown History aerosol inhaler bumetanide 2 mg tablet 2 mg PO DAILY 05/15/24 12/20/24 Unknown History levothyroxine 175 mcg tablet 175 mcg PO DAILY 05/15/24 12/20/24 Unknown History (Synthroid) aspirin 81 mg tablet,delayed 81 mg PO DAILY 12/20/24 12/20/24 Unknown History release (Adult Aspirin Regimen) carvedilol 3.125 mg tablet 3.125 mg PO Q12H 12/20/24 12/20/24 Unknown History gabapentin 100 mg capsule 100 mg PO Q12H 12/20/24 12/20/24 Unknown History spironolactone 100 mg tablet 100 mg PO DAILY 12/20/24 12/20/24 Unknown History <RODNEY Loera Last Filed: 12/20/24 03:11> Allergies/Adverse Reactions: Allergies Allergy/AdvReac Type Severity Reaction Status Date / Time azithromycin Allergy Unknown MOUTH Verified 12/19/24 21:12 PEELED codeine Allergy Unknown VOMITING Verified 12/19/24 21:12 <Alberto Bustillo PA-C - Last Filed: 12/20/24 03:11> Review of Systems 2 Review of Systems: All systems as dictated in HPI <Alberto Bustillo PA-C - Last Filed: 12/20/24 03:11> [facility] Past Medical History Medical History: Medical History COPD (chronic obstructive pulmonary disease) <Alberto Bustillo PA-C - Last Filed: 12/20/24 03:11> Family History Family History: Family History Other Unknown family medical history <Alberto Bustillo PA-C - Last Filed: 12/20/24 03:11> Social History Social History: Social History Smoking packs per day: 1.5 Smoking cigarettes per day: 30.0 Years smoked: 40 Smoking pack-years: 60.00 Smoking status: Current every day smoker Tobacco type: cigarettes Alcohol intake: never Substance use: never Do You Feel Safe in your Home?: Yes Lack of Transportation: No Lack of Food: Never True Current Housing: I Have Housing Concerned About Future Housing: YES Difficulty Paying Gas/Electric Bills: YES Difficulty Paying for Meds: YES Currently Unemployed: No Education: Decline to Answer Difficulty w/ Childcare or Family Care: No Spiritual care concerns: No <Alberto Bustillo PA-C - Last Filed: 12/20/24 03:11> Exam 2 Narrative: GENERAL: Appears older than stated age. HEAD: Normocephalic, atraumatic. EYES: PERRLA and EOMI. ENT: Nares clear, no rhinorrhea or epistaxis. Mucous membranes moist. Oropharynx without tonsillar hypertrophy exudate or other lesions. NECK: Supple. No adenopathy or masses. CHEST: No respiratory distress. She is saturating 96% on 2 L of O2. HEART: Regular rate and rhythm. No murmur heard. Normal peripheral pulses. ABDOMEN: Soft, nontender, nondistended, normal active bowel sounds. MSK: Normal range of motion. Bilateral lower extremity edema noted, 2+ from the feet to knees. SKIN: Warm, dry, no rash. NEURO: Alert and oriented x4. No focal deficits. PSYCH: Flat affect. Normal mood. Exhibiting paranoia and stating things like the phone call center support representative in the waiting room has been hacked. Also stating things like she will if she is not in an even number room upstairs. <Alberto Bustillo PA-C - Last Filed: 12/20/24 03:11> Course SWITCH INSPECTOR/PA Physician Supervision PA discussed this patient with me and I am aware they are being admitted for presumed CHF exacerbation with interstitial edema, maintaining SpO2 on 2LPM NC. I did not personally examine patient and was not otherwise involved with their care but was available for consultation as needed while patient was in the ED. <Samantha Gonzales MD - Last Filed: 12/20/24 19:10> Vital Signs Vital signs: Vital Signs Temperature 98.1 F 12/19/24 21:47 Pulse Rate 63 12/19/24 21:47 Respiratory Rate 16 12/19/24 21:47 Blood Pressure 152/41 H 12/19/24 21:47 Pulse Oximetry 95 12/19/24 21:47 Temperature 97.7 F 12/20/24 14:00 Pulse Rate 63 12/20/24 16:00 Respiratory Rate 15 12/20/24 14:00 Blood Pressure 153/51 H 12/20/24 14:00 Pulse Oximetry 95 12/20/24 14:00 Oxygen Delivery Nasal Cannula 12/20/24 08:00 Oxygen Flow Rate 2 12/20/24 08:00 <Alberto Bustillo PA-C - Last Filed: 12/20/24 03:11> Vital Signs Temperature 98.1 F 12/19/24 21:47 Pulse Rate 63 12/19/24 21:47 Respiratory Rate 16 12/19/24 21:47 Blood Pressure 152/41 H 12/19/24 21:47 Pulse Oximetry 95 12/19/24 21:47 Temperature 97.7 F 12/20/24 14:00 Pulse Rate 63 12/20/24 16:00 Respiratory Rate 15 12/20/24 14:00 Blood Pressure 153/51 H 12/20/24 14:00 Pulse Oximetry 95 12/20/24 14:00 Oxygen Delivery Nasal Cannula 12/20/24 08:00 Oxygen Flow Rate 2 12/20/24 08:00 <Samantha Gonzales MD - Last Filed: 12/20/24 19:10> MDM - Chest Pain MDM Narrative Medical decision making narrative: This is a 54-year-old female who presents to the ED for chief complaint of chest pain beginning around 4:00 a.m. today. On arrival she is hypoxic on room air and requiring to 3 L of O2 nasal cannula. Shows normal white count on CBC. CMP remarkable for mild hyponatremia, likely due to fluid overload. Lactic acid normal. ABG is unremarkable. Troponin is negative. 3 hour troponin also negative. Heart score is 3 for chest pain. BNP elevated to 3240, however I do not have a baseline for comparison. Presentation most likely consistent with heart failure exacerbation. She was started on Lasix IV here. Pressures have remained stable. She is not tachycardic. She is holding good saturations on 2 L. Discussed the case with Dr. Stewart (hospitalist) who agrees to admit the patient to medical floor with telemetry. Recommends continuing diuresis and putting in a cardiology consult. Patient is understanding and agreeable with plan for admission. <Alberto Bustillo PA-C - Last Filed: 12/20/24 03:11> Lab Data Result diagrams: 12/19/24 22:00 12/19/24 22:30 <Alberto Bustillo PA-C - Last Filed: 12/20/24 03:11> Labs: Lab Results 12/19/24 12/19/24 12/20/24 Range/Units 22:00 22:30 01:31 WBC 8.2 (4.5-10.0) K/mm3 RBC 5.07 (4.2-5.4) M/mm3 Hgb 12.6 (12.0-15.0) g/dL Hct 40.1 (37.0-47.0) % MCV 79.1 L (80-100) fl MCH 24.9 L (26-34) pg MCHC 31.4 L (32-36) g/dl RDW 18.0 H (11.5-14.5) % Plt Count 244 (150-375) k/mm3 MPV 9.5 (7.4-10.4) fl Immature Gran % (Auto) 0.4 (0-0.5) % Neut % (Auto) 77.3 H (45.5-73.1) % Lymph % (Auto) 15.8 L (18.3-44.2) % [place] % (Auto) 5.2 (2.6-8.5) % Eos % (Auto) 0.7 (0-4.4) % Baso % (Auto) 0.6 (0.2-1.2) % Lymph # (Auto) 1.30 (0.9-3.2) K/mm3 [place] # (Auto) 0.4 (0.1-0.6) K/mm3 Eos # (Auto) 0.1 (0-0.3) K/mm3 Baso # (Auto) 0.1 (0.0-0.1) K/mm3 Abs Immat Gran (auto) 0.03 (0.00-0.031) K/mm3 Absolute Neuts (auto) 6.4 (1.3-6.7) K/mm3 Absolute Nucleated RBC 0.000 (0.0-0.012) K/mm3 Nucleated RBC % 0.0 (0.0-0.2) % PT 15.4 H (11.1-14.7) Seconds INR 1.2 APTT 37.4 H (22.3-36.8) Seconds Sodium 130 L (137-145) mmol/L Potassium 4.9 (3.4-5.0) mmol/L Chloride 93 L (98-107) mmol/L Carbon Dioxide 29 (22-30) mmol/L Anion Gap 8 (4-12) mmol/L BUN 7 (7-17) mg/dL Creatinine 0.68 L (0.7-1.0) mg/dL Estim Creat Clear Calc Not Reportable Estimated GFR > 60 (59 - ) Glucose 117 H (65-110) mg/dL Lactic Acid < 0.5 L (0.7-2.0) mmol/L Calcium 9.8 (8.4-10.2) mg/dL Total Bilirubin 0.8 (0.2-1.3) mg/dL AST 14 (14-36) U/L ALT 6 (6-35) U/L Alkaline Phosphatase 114 (38-126) U/L Troponin I < 0.012 < 0.012 (0.000-0.034) ng/mL NT-Pro-B Natriuret Pep 3240 H (19.9-100) pg/mL Total Protein 7.0 (6.3-8.2) g/dL Albumin 3.7 (3.5-5.1) g/dL Lipase 23 (23-300) U/L Urine Color (Yellow) Urine Appearance (Clear) Urine pH (5.0-9.0) Ur Specific [place] (1.001-1.035) Urine Protein (Negative) mg/dL Urine Glucose (UA) (Negative) mg/dL Urine Ketones (Negative) mg/dL Ur Blood (Man) (Negative) Urine Nitrate (Negative) Urine Bilirubin (Negative) Urine Urobilinogen (<2.0) mg/dL Leukocyte Esterase Rfl (Negative) NIMCO/UL Urine RBC (0-2) /hpf Urine WBC (0-3) /hpf Ur Squamous Epith Cells (Few) /hpf Urine Bacteria /hpf Urine Casts Urine Opiates Screen (Negative) Urine Methadone Screen (Negative) Ur Barbiturates Screen (Negative) Ur Phencyclidine Scrn (Negative) Ur Amphetamine Screen (Negative) U Benzodiazepines Scrn (Negative) Urine Cocaine Screen (Negative) U Cannabinoids Screen (Negative) 12/20/24 12/20/24 12/20/24 Range/Units 02:08 02:09 04:37 WBC (4.5-10.0) K/mm3 RBC (4.2-5.4) M/mm3 Hgb (12.0-15.0) g/dL Hct (37.0-47.0) % MCV (80-100) fl MCH (26-34) pg MCHC (32-36) g/dl RDW (11.5-14.5) % Plt Count (150-375) k/mm3 MPV (7.4-10.4) fl Immature Gran % (Auto) (0-0.5) % Neut % (Auto) (45.5-73.1) % Lymph % (Auto) (18.3-44.2) % [place] % (Auto) (2.6-8.5) % Eos % (Auto) (0-4.4) % Baso % (Auto) (0.2-1.2) % Lymph # (Auto) (0.9-3.2) K/mm3 [place] # (Auto) (0.1-0.6) K/mm3 Eos # (Auto) (0-0.3) K/mm3 Baso # (Auto) (0.0-0.1) K/mm3 Abs Immat Gran (auto) (0.00-0.031) K/mm3 Absolute Neuts (auto) (1.3-6.7) K/mm3 Absolute Nucleated RBC (0.0-0.012) K/mm3 Nucleated RBC % (0.0-0.2) % PT (11.1-14.7) Seconds INR APTT (22.3-36.8) Seconds Sodium (137-145) mmol/L Potassium (3.4-5.0) mmol/L Chloride (98-107) mmol/L Carbon Dioxide (22-30) mmol/L Anion Gap (4-12) mmol/L BUN (7-17) mg/dL Creatinine (0.7-1.0) mg/dL Estim Creat Clear Calc Estimated GFR (59 - ) Glucose (65-110) mg/dL Lactic Acid (0.7-2.0) mmol/L Calcium (8.4-10.2) mg/dL Total Bilirubin (0.2-1.3) mg/dL AST (14-36) U/L ALT (6-35) U/L Alkaline Phosphatase (38-126) U/L Troponin I < 0.012 (0.000-0.034) ng/mL NT-Pro-B Natriuret Pep (19.9-100) pg/mL Total Protein (6.3-8.2) g/dL Albumin (3.5-5.1) g/dL Lipase (23-300) U/L Urine Color Yellow (Yellow) Urine Appearance Clear (Clear) Urine pH 7.0 (5.0-9.0) Ur Specific [place] 1.006 (1.001-1.035) Urine Protein 1+ H (Negative) mg/dL Urine Glucose (UA) Negative (Negative) mg/dL Urine Ketones Negative (Negative) mg/dL Ur Blood (Man) Negative (Negative) Urine Nitrate Negative (Negative) Urine Bilirubin Negative (Negative) Urine Urobilinogen 0.2 (<2.0) mg/dL Leukocyte Esterase Rfl Negative (Negative) NIMCO/UL Urine RBC 0-2 (0-2) /hpf Urine WBC 0-5 (0-3) /hpf Ur Squamous Epith Cells None seen (Few) /hpf Urine Bacteria None seen /hpf Urine Casts 0-2 Urine Opiates Screen Negative (Negative) Urine Methadone Screen Negative (Negative) Ur Barbiturates Screen Negative (Negative) Ur Phencyclidine Scrn Negative (Negative) Ur Amphetamine Screen Negative (Negative) U Benzodiazepines Scrn Negative (Negative) Urine Cocaine Screen Negative (Negative) U Cannabinoids Screen Negative (Negative) <Alberto Bustillo PA-C - Last Filed: 12/20/24 03:11> Lab Results 12/19/24 12/19/24 12/20/24 Range/Units 22:00 22:30 01:31 WBC 8.2 (4.5-10.0) K/mm3 RBC 5.07 (4.2-5.4) M/mm3 Hgb 12.6 (12.0-15.0) g/dL Hct 40.1 (37.0-47.0) % MCV 79.1 L (80-100) fl MCH 24.9 L (26-34) pg MCHC 31.4 L (32-36) g/dl RDW 18.0 H (11.5-14.5) % Plt Count 244 (150-375) k/mm3 MPV 9.5 (7.4-10.4) fl Immature Gran % (Auto) 0.4 (0-0.5) % Neut % (Auto) 77.3 H (45.5-73.1) % Lymph % (Auto) 15.8 L (18.3-44.2) % [place] % (Auto) 5.2 (2.6-8.5) % Eos % (Auto) 0.7 (0-4.4) % Baso % (Auto) 0.6 (0.2-1.2) % Lymph # (Auto) 1.30 (0.9-3.2) K/mm3 [place] # (Auto) 0.4 (0.1-0.6) K/mm3 Eos # (Auto) 0.1 (0-0.3) K/mm3 Baso # (Auto) 0.1 (0.0-0.1) K/mm3 Abs Immat Gran (auto) 0.03 (0.00-0.031) K/mm3 Absolute Neuts (auto) 6.4 (1.3-6.7) K/mm3 Absolute Nucleated RBC 0.000 (0.0-0.012) K/mm3 Nucleated RBC % 0.0 (0.0-0.2) % PT 15.4 H (11.1-14.7) Seconds INR 1.2 APTT 37.4 H (22.3-36.8) Seconds Sodium 130 L (137-145) mmol/L Potassium 4.9 (3.4-5.0) mmol/L Chloride 93 L (98-107) mmol/L Carbon Dioxide 29 (22-30) mmol/L Anion Gap 8 (4-12) mmol/L BUN 7 (7-17) mg/dL Creatinine 0.68 L (0.7-1.0) mg/dL Estim Creat Clear Calc Not Reportable Estimated GFR > 60 (59 - ) Glucose 117 H (65-110) mg/dL Lactic Acid < 0.5 L (0.7-2.0) mmol/L Calcium 9.8 (8.4-10.2) mg/dL Total Bilirubin 0.8 (0.2-1.3) mg/dL AST 14 (14-36) U/L ALT 6 (6-35) U/L Alkaline Phosphatase 114 (38-126) U/L Troponin I < 0.012 < 0.012 (0.000-0.034) ng/mL NT-Pro-B Natriuret Pep 3240 H (19.9-100) pg/mL Total Protein 7.0 (6.3-8.2) g/dL Albumin 3.7 (3.5-5.1) g/dL Lipase 23 (23-300) U/L Urine Color (Yellow) Urine Appearance (Clear) Urine pH (5.0-9.0) Ur Specific [place] (1.001-1.035) Urine Protein (Negative) mg/dL Urine Glucose (UA) (Negative) mg/dL Urine Ketones (Negative) mg/dL Ur Blood (Man) (Negative) Urine Nitrate (Negative) Urine Bilirubin (Negative) Urine Urobilinogen (<2.0) mg/dL Leukocyte Esterase Rfl (Negative) NIMCO/UL Urine RBC (0-2) /hpf Urine WBC (0-3) /hpf Ur Squamous Epith Cells (Few) /hpf Urine Bacteria /hpf Urine Casts Urine Opiates Screen (Negative) Urine Methadone Screen (Negative) Ur Barbiturates Screen (Negative) Ur Phencyclidine Scrn (Negative) Ur Amphetamine Screen (Negative) U Benzodiazepines Scrn (Negative) Urine Cocaine Screen (Negative) U Cannabinoids Screen (Negative) 12/20/24 12/20/24 12/20/24 Range/Units 02:08 02:09 04:37 WBC (4.5-10.0) K/mm3 RBC (4.2-5.4) M/mm3 Hgb (12.0-15.0) g/dL Hct (37.0-47.0) % MCV (80-100) fl MCH (26-34) pg MCHC (32-36) g/dl RDW (11.5-14.5) % Plt Count (150-375) k/mm3 MPV (7.4-10.4) fl Immature Gran % (Auto) (0-0.5) % Neut % (Auto) (45.5-73.1) % Lymph % (Auto) (18.3-44.2) % [place] % (Auto) (2.6-8.5) % Eos % (Auto) (0-4.4) % Baso % (Auto) (0.2-1.2) % Lymph # (Auto) (0.9-3.2) K/mm3 [place] # (Auto) (0.1-0.6) K/mm3 Eos # (Auto) (0-0.3) K/mm3 Baso # (Auto) (0.0-0.1) K/mm3 Abs Immat Gran (auto) (0.00-0.031) K/mm3 Absolute Neuts (auto) (1.3-6.7) K/mm3 Absolute Nucleated RBC (0.0-0.012) K/mm3 Nucleated RBC % (0.0-0.2) % PT (11.1-14.7) Seconds INR APTT (22.3-36.8) Seconds Sodium (137-145) mmol/L Potassium (3.4-5.0) mmol/L Chloride (98-107) mmol/L Carbon Dioxide (22-30) mmol/L Anion Gap (4-12) mmol/L BUN (7-17) mg/dL Creatinine (0.7-1.0) mg/dL Estim Creat Clear Calc Estimated GFR (59 - ) Glucose (65-110) mg/dL Lactic Acid (0.7-2.0) mmol/L Calcium (8.4-10.2) mg/dL Total Bilirubin (0.2-1.3) mg/dL AST (14-36) U/L ALT (6-35) U/L Alkaline Phosphatase (38-126) U/L Troponin I < 0.012 (0.000-0.034) ng/mL NT-Pro-B Natriuret Pep (19.9-100) pg/mL Total Protein (6.3-8.2) g/dL Albumin (3.5-5.1) g/dL Lipase (23-300) U/L Urine Color Yellow (Yellow) Urine Appearance Clear (Clear) Urine pH 7.0 (5.0-9.0) Ur Specific [place] 1.006 (1.001-1.035) Urine Protein 1+ H (Negative) mg/dL Urine Glucose (UA) Negative (Negative) mg/dL Urine Ketones Negative (Negative) mg/dL Ur Blood (Man) Negative (Negative) Urine Nitrate Negative (Negative) Urine Bilirubin Negative (Negative) Urine Urobilinogen 0.2 (<2.0) mg/dL Leukocyte Esterase Rfl Negative (Negative) NIMCO/UL Urine RBC 0-2 (0-2) /hpf Urine WBC 0-5 (0-3) /hpf Ur Squamous Epith Cells None seen (Few) /hpf Urine Bacteria None seen /hpf Urine Casts 0-2 Urine Opiates Screen Negative (Negative) Urine Methadone Screen Negative (Negative) Ur Barbiturates Screen Negative (Negative) Ur Phencyclidine Scrn Negative (Negative) Ur Amphetamine Screen Negative (Negative) U Benzodiazepines Scrn Negative (Negative) Urine Cocaine Screen Negative (Negative) U Cannabinoids Screen Negative (Negative) <Samantha Gonzales MD - Last Filed: 12/20/24 19:10> ABG Data ABG results: 12/20/24 00:57 Puncture Site Left radial ABG pH 7.349 L ABG pCO2 50.9 H ABG pO2 70.2 L ABG PO2/FiO2 Ratio 2.46 ABG HCO3 27.4 H ABG O2 Saturation 93.1 L ABG O2 Content 16.1 ABG Base Excess 1.0 A-a Gradient 73.0 Oxyhemoglobin 88.6 L Total Hemoglobin 12.9 O2 Delivery Device Nasal cannula O2 Liters/Min 2.5 FiO2 29 <Alberto Bustillo PA-C - Last Filed: 12/20/24 03:11> 12/20/24 00:57 Puncture Site Left radial ABG pH 7.349 L ABG pCO2 50.9 H ABG pO2 70.2 L ABG PO2/FiO2 Ratio 2.46 ABG HCO3 27.4 H ABG O2 Saturation 93.1 L ABG O2 Content 16.1 ABG Base Excess 1.0 A-a Gradient 73.0 Oxyhemoglobin 88.6 L Total Hemoglobin 12.9 O2 Delivery Device Nasal cannula O2 Liters/Min 2.5 FiO2 29 <Samantha Gonzales MD - Last Filed: 12/20/24 19:10> ECG Data EKG #1: ECG completion date: 12/19/24 <Alberto Bustillo PA-C - Last Filed: 12/20/24 03:11> ECG completion time: 22:19 <Alberto Bustillo PA-C - Last Filed: 12/20/24 03:11> Prior ECG tracings: available for review <Alberto Bustillo PA-C - Last Filed: 12/20/24 03:11> Interpretation: Sinus bradycardia with first-degree AV block Rate 53 Normal QRS Normal QTC No acute ischemic findings <Alberto Bustillo PA-C - Last Filed: 12/20/24 03:11> Discharge Plan Discharge Clinical Impression: CHF exacerbation <Alberto Bustillo PA-C - Last Filed: 12/20/24 03:11> Patient Disposition: Still a Patient <Alberto Bustillo PA-C - Last Filed: 12/20/24 03:11> Condition: Stable <Alberto Bustillo PA-C - Last Filed: 12/20/24 03:11> Time of Disposition: 03:11 <Alberto Bustillo PA-C - Last Filed: 12/20/24 03:11> 03:11 <Samantha Gonzales MD - Last Filed: 12/20/24 19:10> Quality HEART score for chest pain patients History: slightly suspicious <Alberto Bustillo PA-C - Last Filed: 12/20/24 03:11> ECG: non specific repolarization disturbance/LBTB/PM <Alberto Bustillo PA-C - Last Filed: 12/20/24 03:11> Age: > 45 and < 65 years <Alberto Bustillo PA-C - Last Filed: 12/20/24 03:11> Risk factors: 1 or 2 risk factors <Alberto Bustillo PA-C - Last Filed: 12/20/24 03:11> Troponin: < or = to 1x normal limit <Alberto Bustillo PA-C - Last Filed: 12/20/24 03:11> Heart score: 3 <Alberto Bustillo PA-C - Last Filed: 12/20/24 03:11> 3 <Samantha Gonzales MD - Last Filed: 12/20/24 19:10>
--- OUTSIDE RECORDS SUMMARY | 2024-12-20 00:52 | XMS_ITS | Clinical Summary ---
Author Organization [facility] Address [address] [place] [address] Care Team Providers Care Personal Carer Name Role Phone KohatkMurali Boyd DO Primary Care Provider + Nato Medrano MD Unavailable [phone] Kasey Krishnan Unavailable [phone] Allergies Active Allergy Reactions Criticality Noted Date [...] 09/14/2023 Assessment & Plan (11/09/2023 5:28 PM WIND TURBINE INSTALLER): stable Primary hypertension 09/14/2023 Assessment & Plan (11/09/2023 5:26 PM WIND TURBINE INSTALLER): Patient is well controlled. Continue current treatment. Morbid (severe) obesity due to excess calories 1 Hyponatremia 08/24/2023 Coronary artery disease invo lving napaimute coronary artery of napaimute heart without angina pectoris 03/10/2023 Assessment & Plan (11/09/2023 5:27 PM WIND TURBINE INSTALLER): Patient is well controlled. Continue current treatment. H/O cardiomyopathy 03/10/2023 PAD (peripheral artery disease) 03/10/2023 Assessment & Plan (11/09/2023 5:26 PM WIND TURBINE INSTALLER): Patient is well controlled. Continue current treatment. Mixed hyperlipidemia 03/10/2023 Acute non-recurrent frontal sinusitis 01/20/2023 Assessment & Plan (01/20/2023 12:51 PM WIND TURBINE INSTALLER): Keflex Tessalon perles Abnormal stress test 01/02/2023 [...] 12/03/2021 Assessment & Plan (12/03/2021 11:29 AM WIND TURBINE INSTALLER): Add mobid 7.5 Allergic rhinitis 12/03/2021 Assessment & Plan (06/21/2023 2:16 PM CDT): Chronic. Continues. I will add montelucast Assessment & Plan (12/03/2021 11:25 AM WIND TURBINE INSTALLER): Continue singulair Annual physical exam 12/04/2020 Assessment & Plan (08/11/2022 3:25 PM CDT): Routine lab Mammogram Assessment & Plan (12/03/2021 11:24 AM WIND TURBINE INSTALLER): Routine lab She is having sciatica. She has been seeing a chiropractor but due to the COVID outbreak she has withheld treatment for now. She will get back. I am going to add pain medication to get her through Mammogram Assessment & Plan (12/04/2020 10:51 AM WIND TURBINE INSTALLER): shingrex Mammogram Declines colonoscopy Dyspnea on exertion [...] t4 Assessment & Plan (12/03/2021 11:24 AM WIND TURBINE INSTALLER): She needs a TSH and free T4 [...] 12/03/2021 Assessment & Plan (12/04/2020 10:58 AM WIND TURBINE INSTALLER): Ct abdomen and pelvis Encounters Date Type Department Care Team Description 11/14/2024 Telephone [facility] [address] [address] Brook Acosta MD from Last [...] Art Hypertension Father Art Pancreatic cancer Father [place] Arthritis Mother Anahi Diabetes Mother Anahi Hypertension [...] drink = 0.6 oz pur e alcohol) [facility] Utilities Answer Date Recorded In the past 12 months has th e [employer]cloud, gas, oil, or water Disruptor [employer] threatened to shut off services in your [...] often do you attend chur ch or anglican services? 1 to 4 times per year 09/15/2023 Do you belong to any clubs o r organizations such as shinto groups, unions, fraternal or athletic groups, or [...] place to sleep or slept in a fpc (including now)? No 09/15/2023 Personal Safety Answer Date Recorded Have you ever been in or are you currently in a harmful physical or emotional relationship or is someone making you feel afraid or unsafe? Denies 09/04/2024 Comments No Sex and Gender Information Value Date Recorded Sex Assigned at Not on file Legal Sex Female 12:17 PM WIND TURBINE INSTALLER Gender Identity Female 08/30/2022 1:15 PM CDT Sexual Orientation Not on file Obstetrics History Last Filed Vital Signs Vital Sign Reading Time Taken Comments Blood Pressure 140/52 01/16/2024 2:31 PM WIND TURBINE INSTALLER Pulse 73 01/16/2024 2:31 PM WIND TURBINE INSTALLER Temperature 36.6 ??C (97.9 ??F) 11/09/2023 4:48 PM CS T Respiratory Rate 18 09/04/2024 11:32 PM CDT Oxygen Saturation 90% 01/16/2024 2:31 PM WIND TURBINE INSTALLER Inhaled Oxygen Concentration - - Weight 81.6 [...] history exists Medical Devices Implanted Type Area Business Reporter Device Identifier Shelf Expiration Date Model / Serial / Lot [employer]Mail Device Closure Vascade Od5 Fr Femoral Artery [id number] - [id number] Implanted:Qty: 1 on 02/07/2023 by Brook Acosta MD at [facility] [employer] 11/10/2024 [id number] / / [id number] Insurance [facility] [place] [id number] [facility] [address] [place] [id number] Advance Directives For more information, please contact: [phone] Documents on File Type Date Recorded Patient Washer Meat Expl anation ADVANCE DIRECTIVE 10/30/2023 11:11 PM [facility]ICAL Power of American Board Certified Orthotist 09/24/2023 7:56 PM * Full Code (Latest [...] Cody Other Health Care Agent Care Teams Personal Carer Relationship Specialty Start Date End Date Murali Hernandez DO PCP - General Family Medicine 03/25/19 [place] [address] [facility] [address] [place] [address] Consulting Physician Nephrology 08/30/23 Kasey Krishnan PA [address] [place] [address] Physician Lead Fire Protection Engineer Medical Oncology 10/27/23
--- OUTSIDE RECORDS SUMMARY | 2024-12-20 00:52 | XMS_ITS | Clinical Summary ---
Author Organization [facility] Address [address] [place] [address]. [place] [address] [place] [address] Care Team Providers Care Cell Coverer Name Role Phone Murali Hernandez DO Primary Care Provider [phone] Allergies Active Allergy Reactions Criticality Noted Date [...] Date Diagnosed Date CHF (congestive heart failure) ([facility]) 12/01/2024 Hyponatremia 08/18/2024 Chronic constipation 03/25/2024 Cobalamin deficiency 01/16/2024 Gastroesophageal reflux disease without esophagi tis 01/16/2024 Hyperglycemia 01/16/2024 Altered mental status, unspe cified altered mental status type 09/25/2023 Chronic heart failure with p reserved ejection fraction ([facility]) 09/14/2023 Coronary artery disease invo lving sun'aq coronary artery of sun'aq heart without angina pectoris 03/10/2023 H/O cardiomyopathy 03/10/2023 Mixed hyperlipidemia 03/10/2023 PAD (peripheral artery disease) 03/10/2023 Acute non-recurrent frontal sinusitis 01/20/2023 Abnormal stress test 01/02/2023 Abnormal echocardiogram 11/23/2022 Acute on chronic HFrEF (hear t failure with reduced ejection fraction) ([facility]) 11/23/2022 Cardiomyopathy ([facility]) 11/23/2022 Hepatic steatosis 08/11/2022 Allergic rhinitis [...] Department Care Team Description 12/18/2024 10:00 AM GOLF INSTRUCTOR Home Care Visit [address] [address] Jennifer Oliveira, HARVEY SN HOME VISIT 12/17/2024 11:00 AM GOLF INSTRUCTOR Home Care Visit [address] [address] Macario Perez, PT CASE COMMUNICATION 12/17/2024 Home Care Visit [address] [address] Malou Burger, OT CASE COMMUNICATION 12/15/2024 Home Care Visit [address] [address] aMlou Burger, OT CASE COMMUNICATION 12/11/2024 4:15 PM GOLF INSTRUCTOR Home Care Visit [address] [address] Tod Lewis, PT CASE COMMUNICATION 12/11/2024 9:15 AM GOLF INSTRUCTOR Home Care Visit [facility] [address] [place] [address] [place] [address] Misti Shell, RN SN OASIS START OF CARE 12/11/2024 Home Care Visit [facility] [address] [place] [address] [place] [address] Misti Shell RN COCIM COORD OF CARE INTERDISCIPLINARY MTG 12/11/2024 Hospital Follow-up Call [facility] Care [place] [address] Rhiannon Alexander LPN Follow Up Call (MARCELINO 12/01-12/10/24) 12/11/2024 Plan of Care Documentation [address] [place] [address] [place] [address] 12/04/2024 10:00 AM GOLF INSTRUCTOR Home Care Visit [address] [address] Linette Cueva RN LIAISON VISIT 12/01/2024 6:48 PM GOLF INSTRUCTOR - 12/10/2024 1:24 PM GOLF INSTRUCTOR Hospital Encounter [facility] 5th [place] [address] Yash Sheth PA-C Elayyan, Ibrahim B, MD Dodt, Darah R, Rissa Loredo PA-C Littlejohn, Mary C, TANA Abdominal Distention Discharge Disposition: Home with Home Health Care 12/01/2024 Travel 10/21/2024 7:39 PM GOLF INSTRUCTOR - 10/21/2024 9:49 PM GOLF INSTRUCTOR Emergency [facility] Emergency [place] [address] Griselda Devi MD Leg Swelling Discharge Disposition: [...] from your doctor or pharmacy? Rarely 12/01/2024 [employer] Answer Date Recorded In the past 12 months has [facility] [employer], oil, or water [employer] threatened to shut off services in your [...] often do you attend chur ch or congregation services? More than 4 times per year 12/01/2024 Do you belong to any clubs o r organizations such as worship groups, unions, fraternal or athletic groups, or [...] and heating? Not hard at all 12/01/2024 [facility] [place] of Occupat ional Health - Occupational Stress [...] any time in the past 12 m [facility], were you homeless or living in a snf (including now)? No 12/01/2024 Comments No Sex and Gender Information Value Date Recorded Sex Assigned at Female 12/07/2024 1:56 AM GOLF INSTRUCTOR Legal Sex Female 11:16 PM GOLF INSTRUCTOR Gender Identity Female 12/07/2024 1:56 AM GOLF INSTRUCTOR Sexual Orientation Straight 12/07/2024 1: 56 AM GOLF INSTRUCTOR Last Filed Vital Signs Vital Sign Reading Time Taken Comments Blood Pressure 150/50 12/18/2024 9:57 AM GOLF INSTRUCTOR Pulse 84 12/18/2024 9:57 AM GOLF INSTRUCTOR Temperature 36.8 ??C (98.2 ??F) 12/18/2024 9:57 AM CS T Respiratory Rate 20 12/18/2024 9:57 AM GOLF INSTRUCTOR Oxygen Saturation 96% 12/18/2024 9:57 AM GOLF INSTRUCTOR Inhaled Oxygen Concentration - - Weight 103.4 kg (227 lb 15.3 oz) 12/04/2024 5:07 AM GOLF INSTRUCTOR Height 165.1 cm (5' 5 ) 12/01/2024 10:1 6 PM GOLF INSTRUCTOR Body Mass Index 37.93 12/01/2024 10:16 PM GOLF INSTRUCTOR Plan of Treatment Upcoming Encounters Date Type Department Care Team (Late st Contact Info) Description 12/20/2024 3:00 PM GOLF INSTRUCTOR Home Care Visit [facility] [address] [place], [place] [id number] Macario Perez, PT [address] [facility] [place] [address] 12/25/2024 9:00 AM GOLF INSTRUCTOR Home Care Visit [facility] [address] [place], [place] [id number] Misti Shell, RN Health Maintenance Due Date [...] discharge from hospital 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 Procedure Name Priority Date/Time Associated Diagnosis Comments COMPREHENSIVE METABOLIC PANEL Routine 12/10/2024 7:26 AM GOLF INSTRUCTOR CBC W/DIFF AUTOMATED Routine 12/10/2024 7:26 AM GOLF INSTRUCTOR US GD PARACENT W IMAGING Routine 12/09/2024 2:14 PM GOLF INSTRUCTOR AMYLASE FLUID Routine 12/09/2024 1:30 PM GOLF INSTRUCTOR CELL COUNT W/ DIFF BODY FLUID Routine 12/09/2024 1:30 PM GOLF INSTRUCTOR ALBUMIN BODY FLUID Routine 12/09/2024 1: 30 PM GOLF INSTRUCTOR URINE BACTERIA CULTURE Routine 10:13 AM GOLF INSTRUCTOR AMMONIA Routine 12/09/2024 4:55 AM GOLF INSTRUCTOR COMPREHENSIVE METABOLIC PANEL Routine 12/09/2024 4:55 AM GOLF INSTRUCTOR CBC W/DIFF AUTOMATED Routine 12/09/2024 4:55 AM GOLF INSTRUCTOR PROTHROMBIN TIME, VENOUS Routine 12/09/2024 4:55 AM GOLF INSTRUCTOR HC URINALYSIS AUTO W/O MICRO Routine 12/08/2024 1:18 PM GOLF INSTRUCTOR COMPREHENSIVE METABOLIC PANEL Routine 12/08/2024 6:35 AM GOLF INSTRUCTOR COMPREHENSIVE METABOLIC PANEL Routine 12/08/2024 4:30 AM GOLF INSTRUCTOR CBC W/DIFF AUTOMATED Routine 12/08/2024 4:30 AM GOLF INSTRUCTOR HEPATITIS PANEL,ACUTE Routine 12/07/2024 6:[address] CHEST+ABD+PEL W CON Today 1:39 PM GOLF INSTRUCTOR THYROXINE, FREE (FT4) Routine 12/07/2024 5:53 AM GOLF INSTRUCTOR FREE T3 Routine 12/07/2024 5:53 AM GOLF INSTRUCTOR TSH W/REFLEX Routine 12/07/2024 5:53 AM GOLF INSTRUCTOR MAGNESIUM Routine 12/07/2024 5:53 AM GOLF INSTRUCTOR COMPREHENSIVE METABOLIC PANEL Routine 12/07/2024 5:53 AM GOLF INSTRUCTOR CBC W/DIFF AUTOMATED Routine 12/07/2024 5:53 AM GOLF INSTRUCTOR US ABD LIMITED Today 12/06/2024 1:15 PM GOLF INSTRUCTOR CBC W/DIFF AUTOMATED STAT 12/06/2024 9:22 AM GOLF INSTRUCTOR BASIC METABOLIC PANEL STAT 12/06/2024 9:22 AM GOLF INSTRUCTOR BASIC METABOLIC PANEL Routine 12/05/2024 5:10 AM GOLF INSTRUCTOR CBC W/DIFF AUTOMATED Routine 12/05/2024 5:10 AM GOLF INSTRUCTOR CORTROSYN STIMULATION TIMED 12/04/2024 1:00 PM GOLF INSTRUCTOR CORTROSYN STIMULATION Routine 12/04/2024 11:48 AM GOLF INSTRUCTOR BASIC METABOLIC PANEL Routine 12/04/2024 3:58 AM GOLF INSTRUCTOR CBC W/DIFF AUTOMATED Routine 12/04/2024 3:58 AM GOLF INSTRUCTOR CORTISOL AM TIMED 12/03/2024 7:58 AM GOLF INSTRUCTOR BASIC METABOLIC PANEL Routine 12/03/2024 5:05 AM GOLF INSTRUCTOR CBC W/DIFF AUTOMATED Routine 12/03/2024 5:05 AM GOLF INSTRUCTOR VITAMIN B-12 Routine 12/03/2024 5:05 AM GOLF INSTRUCTOR IRON SAT PANEL (IRON,IBC,%SAT) Routine 12/03/2024 5:05 AM GOLF INSTRUCTOR FOLIC ACID SERUM Routine 12/03/2024 5:05 AM GOLF INSTRUCTOR FERRITIN Routine 12/03/2024 5:05 AM GOLF INSTRUCTOR SODIUM URINE RANDOM Routine 12/02/2024 6 :00 PM GOLF INSTRUCTOR OSMOLALITY, URINE Routine 12/02/2024 6:0 0 PM GOLF INSTRUCTOR XR ABD KUB OLIVE 12/02/2024 2:37 PM GOLF INSTRUCTOR USE ECHOCARDIOGRAM Today 12/02/2024 10 :11 AM GOLF INSTRUCTOR MAGNESIUM Routine 12/02/2024 7:24 AM GOLF INSTRUCTOR BASIC METABOLIC PANEL Routine 12/02/2024 7:24 AM GOLF INSTRUCTOR CBC W/DIFF AUTOMATED Routine 12/02/2024 7:24 AM GOLF INSTRUCTOR OSMOLALITY, URINE Routine 12/01/2024 11: 23 PM GOLF INSTRUCTOR SODIUM URINE RANDOM Routine 12/01/2024 1 1:23 PM GOLF INSTRUCTOR THYROXINE, FREE (FT4) STAT 12/01/2024 11:20 PM GOLF INSTRUCTOR TSH W/REFLEX STAT 12/01/2024 11:20 PM GOLF INSTRUCTOR TROPONIN, QUANT STAT 12/01/2024 11:20 PM GOLF INSTRUCTOR BASIC METABOLIC PANEL STAT 12/01/2024 11:20 PM GOLF INSTRUCTOR OSMOLALITY, BLOOD STAT 12/01/2024 11: 20 PM GOLF INSTRUCTOR HC URINALYSIS AUTO W/O MICRO STAT 12/01/2024 7:38 PM GOLF INSTRUCTOR PHOSPHORUS, INORGANIC PHOSPHATE Routine 12/01/2024 7:26 PM GOLF INSTRUCTOR MAGNESIUM STAT 12/01/2024 7:26 PM GOLF INSTRUCTOR PRO-BRAIN NATRIURETIC PEPTIDE STAT 12/01/2024 7:26 PM GOLF INSTRUCTOR LIPASE STAT 12/01/2024 7:26 PM GOLF INSTRUCTOR TROPONIN, QUANT STAT 12/01/2024 7:26 PM GOLF INSTRUCTOR COMPREHENSIVE METABOLIC PANEL STAT 12/01/2024 7:26 PM GOLF INSTRUCTOR CBC W/DIFF AUTOMATED STAT 12/01/2024 7:26 PM GOLF INSTRUCTOR XR CHEST PORTABLE STAT 12/01/2024 7:0 3 PM GOLF INSTRUCTOR ECG 12-LEAD Routine 12/01/2024 6:52 PM GOLF INSTRUCTOR CRITICAL CARE Routine 12/01/2024 6:45 PM GOLF INSTRUCTOR XR CHEST PORTABLE STAT 10/21/2024 8:0 2 PM GOLF INSTRUCTOR ECG 12-LEAD STAT 10/21/2024 7:48 PM GOLF INSTRUCTOR PRO-BRAIN NATRIURETIC PEPTIDE STAT 10/21/2024 7:42 PM GOLF INSTRUCTOR TROPONIN, QUANT STAT 10/21/2024 7:42 PM GOLF INSTRUCTOR COMPREHENSIVE METABOLIC PANEL STAT 10/21/2024 7:42 PM GOLF INSTRUCTOR CBC W/DIFF AUTOMATED STAT 10/21/2024 7:42 PM GOLF INSTRUCTOR from Last 3 Months Results * (ABNORMAL) COMPREHENSIVE METABOLIC PANEL (12/10/2024 7:26 AM GOLF INSTRUCTOR) Only the most recent of7 resultswithin the time period is included. GLUCOSE 114(H) 70 - 99 MG/DL 12/10/2024 8:38 AM GOLF INSTRUCTOR [facility] BUN 26(H) 7 - 18 MG/DL 12/10/2024 8:38 AM GOLF INSTRUCTOR [facility] CREATININE S/P/B 0.94 0.55 - 1.02 MG/DL 12/10/2024 8:38 AM [facility] SODIUM S/P/B 130(L) 136 - 145 MMOL/L 12/10/2024 8:38 AM [facility] POTASSIUM S/P/B 4.0 3.5 - 5.1 MMOL/L 12/10/2024 8:38 AM [facility] CHLORIDE S/P/B 88(L) 97 - 115 MMOL/L 12/10/2024 8:38 AM [facility] CO2 38.7(H) 21 - 32 MMOL/L 12/10/2024 8:38 AM [facility] CALCIUM S/P/B 9.6 8.5 - 10.1 MG/DL 12/10/2024 8:38 AM [facility] BILIRUBIN TOTAL S/P/B 0.7 0.2 - 1.2 MG/DL 12/10/2024 8:38 AM [facility] Comment: THIS ASSAY IS NOT RECOMMENDED FOR PATIENTS UNDERGOING TREATMENT WITH ELTROMBOPAG DUE TO THE POTENTIAL FOR FALSELY ELEVATED RESULTS. TOTAL PROTEIN S/P/B 7.3 6.4 - 8.2 G/DL 12/10/2024 8:38 AM [facility] ALBUMIN S/P/B 2.9(L) 3.4 - 5.0 G/DL 12/10/2024 8:38 AM [facility] AST 10(L) 15 - 37 U/L 12/10/2024 8:38 AM [facility] ALT 9(L) 14 - 55 U/L 12/10/2024 8:38 AM [facility] ALKALINE PHOSPHATASE S/P/B 97 50 - 136 U/L 12/10/2024 8:38 AM [facility] ANION GAP 3.3 2 - 10 MMOL/L 12/10/2024 8:38 AM [facility] BUN CREATININE RATIO 27.7(H) 6 - 26 12/10/2024 8:38 AM [facility] A/G RATIO 0.7(L) 1.0 - 2.0 RATIO 12/10/2024 8:38 AM [facility] GFR ESTIMATE 71(L) >90 ML/MIN/1.7 3 M2 12/10/2024 8:38 AM [facility] Comment: NOTE: eGFR is not calculated for patients <18 years of age or gender unknown. This is an estimated GFR calculation using the new CKD EPI creatinine equation without race and so does not require a correction factor for race. This estimated GFR should not be used for calculating drug doses. 12/10/2024 7:26 AM GOLF INSTRUCTOR Charline CALLES LABORATORY Final Res ult [facility] [address] [place] [address], [place] [phone] * (ABNORMAL) CBC W/DIFF AUTOMATED (12/10/2024 7:26 AM GOLF INSTRUCTOR) Only the most recent of11 resultswithin the time period is included. WBC 7.64 4.5 - 11.0 x10'3/uL 12/10/2024 8:21 AM [facility] RBC 4.78 4.20 - 5.40 x10'6/uL 12/10/2024 8:21 AM [facility] HGB 11.3(L) 12.0 - 16.0 G/DL 12/10/2024 8:21 AM [facility] HCT 39.0 38.0 - 48.0 % 12/10/2024 8:21 AM [facility] MCV 81.6 81.0 - 99.0 FL 12/10/2024 8:21 AM [facility] MCH 23.6(L) 27.0 - 31.0 PG 12/10/2024 8:21 AM [facility] MCHC 29.0(L) 32.0 - 36.0 G/DL 12/10/2024 8:21 AM [facility] RDW 17.6(H) 11.5 - 14.5 % 12/10/2024 8:21 AM [facility] PLT 251 130 - 400 x10'3/uL 12/10/2024 8:21 AM [facility] MPV 9.6 9.3 - 12.2 FL 12/10/2024 8:21 AM [facility] DIFFERENTIAL TYPE AUTOMATED DIFFERENTIAL 12/10/2024 8:21 AM [facility] NEUTROPHILS % 68.0 % 12/10/2024 8:21 AM [facility] LYMPHOCYTES % 20.9 % 12/10/2024 8:21 AM [facility] MONOCYTES % 6.8 % 12/10/2024 8:21 AM [facility] EOSINOPHILS 3.1 % 12/10/2024 8:21 AM [facility] BASOPHILS 0.8 % 12/10/2024 8:21 AM [facility] IMMATURE GRANS % 0.4 % 12/10/19 8:21 AM [facility] ABS. NEUTROPHILS 5.19 1.80 - 7.70 x10'3/uL 12/10/2024 8:21 AM [facility] ABS. LYMPHOCYTES 1.60 1.00 - 4.80 x10'3/uL 12/10/2024 8:21 AM [facility] ABS. MONOCYTES 0.52 0.24 - 0.86 x10'3/uL 12/10/2024 8:21 AM GOLF INSTRUCTOR [facility] ABS. EOSINOPHILS 0.24 0.04 - 0.36 x10'3/uL 12/10/2024 8:21 AM GOLF INSTRUCTOR [facility] ABS. BASOPHILS 0.06 0.01 - 0.08 x10'3/uL 12/10/2024 8:21 AM GOLF INSTRUCTOR [facility] ABS. IMMATURE GRANULOCYTES 0.03 0.00 - 0.49 x10'3/uL 12/10/2024 8:21 AM GOLF INSTRUCTOR [facility] 12/10/2024 7:26 AM GOLF INSTRUCTOR us Charline Chadwick APNP LABORATORY Final Res ult [facility] [address] [place] [address], [place] [phone] * US GD PARACENT W IMAGING (12/09/2024 2:14 PM GOLF INSTRUCTOR) Anatomical Region Laterality Modality Ultrasound 12/09/2024 1:22 PM GOLF INSTRUCTOR Impressions 12/09/2024 2:26 PM GOLF INSTRUCTOR =====IMPRESSION:===== 1. Moderate ascites 2. Procedure note for left lower quadrant approach paracentesis performed with ultrasound guidance. 3. 3.55 L of fluid removed. 4. No albumin IV placement to follow per protocol. 5. No immediate complication. Ordered By: CHARLINE CHADWICK Interpreted By: Alejandra Willis MD, 12/09/2024 1:22 PM Narrative 12/09/2024 2:26 PM GOLF INSTRUCTOR [facility] [address] [place], [place] [address] Examination: Ultrasound-guided paracentesis with imaging Exam date/time: [...] incision was made through which a 6 Bulgarian [place] one-step catheter was advanced under ultrasound guidance [...] Note Alejandra Willis MD - 12/09/2024 [facility] [address] [place], [place] [address] Examination: Ultrasound-guided paracentesis with imaging Exam date/time: [...] incision was made through which a 6 Bulgarian Wh[place] one-stepcatheter was advanced under ultrasound guidance through [...] ult * AMYLASE FLUID (12/09/2024 1:30 PM GOLF INSTRUCTOR) AMYLASE (BODY FLUID) 10 UNITS/L 12/09/2024 5:40 PM GOLF INSTRUCTOR [facility] Comment:REFERENCE RANGE NOT ESTABLISHED FOR THIS BODY FLUID. SPECIMEN SOURCE PERITONEAL FLUID 12/09/2024 1:32 PM GOLF INSTRUCTOR [facility] PERITONEAL FLUID / Unknown 12/09/2024 1:30 PM GOLF INSTRUCTOR Charline Chadwick STEVANSYL BODY FLUIDS AND STOOLS OR DERABLES Final Result [facility] [address] [place] [address], [place] [phone] [facility] [address] [place] [address], [place] [phone] * CELL COUNT W/ DIFF BODY FLUID (12/09/2024 1:30 PM GOLF INSTRUCTOR) SOURCE (FLUID) PERITONEAL FLUID 12/09/2024 1:32 PM GOLF INSTRUCTOR [facility] VOLUME (FLUID) 1,975.0 mL 12/09/2024 3:42 PM GOLF INSTRUCTOR [facility] COLOR (FLUID) DALTON 12/09/2024 3:42 PM GOLF INSTRUCTOR [facility] TURBIDITY TURBID 12/09/2024 3:42 PM GOLF INSTRUCTOR [facility] RBC (FLUID) 25,015 CELLS/UL 12/09/2024 3:42 PM GOLF INSTRUCTOR [facility] Comment: The reference range and other method performance specifications have not been established for this assay on body fluids. The test result should be integrated into the clinical context for interpretation and utilized in comparison to blood concentrations of the analyte as appropriate. TOTAL NUCLEATED CELL COUNT 823 CELLS/UL 12/09/2024 3:42 PM GOLF INSTRUCTOR [facility] Comment: The reference range and other method performance specifications have not been established for this assay on body fluids. The test result should be integrated into the clinical context for interpretation and utilized in comparison to blood concentrations of the analyte as appropriate. SEGS (FLUID) 4 % 12/09/2024 3:42 PM GOLF INSTRUCTOR [facility] Comment: The reference range and other method performance specifications have not been established for this assay on body fluids. The test result should be integrated into the clinical context for interpretation and utilized in comparison to blood concentrations of the analyte as appropriate. LYMPHS (FLUID) 36 % 12/09/2024 3:42 PM GOLF INSTRUCTOR [facility] Comment: The reference range and other method performance specifications have not been established for this assay on body fluids. The test result should be integrated into the clinical context for interpretation and utilized in comparison to blood concentrations of the analyte as appropriate. OTHER MONONUCLEAR CELLS (FLD) 60 % 12/09/2024 3:42 PM GOLF INSTRUCTOR [facility] Comment: THE FOLLOWING MAY INCLUDE MONOCYTE/MACROPHAGE,PLASMA [...] PERITONEAL FLUID / Unknown 12/09/2024 1:30 PM GOLF INSTRUCTOR Charline FAJARDO BODY FLUIDS AND STOOLS OR DERABLES Final Result [facility] [address] [place] [address], [place] [phone] * ALBUMIN BODY FLUIDS (12/09/2024 1:30 PM GOLF INSTRUCTOR) ALBUMIN (FLUID) 2.2 G/DL 5:40 PM GOLF INSTRUCTOR [facility] Comment:REFERENCE RANGE NOT ESTABLISHED FOR THIS BODY FLUID. SPECIMEN SOURCE PERITONEAL FLUID 12/09/2024 1:32 PM GOLF INSTRUCTOR [facility] PERITONEAL FLUID / Unknown 12/09/2024 1:30 PM GOLF INSTRUCTOR Charline FAJARDO BODY FLUIDS AND STOOLS OR DERABLES Final Result [facility] [address] [place] [address], [place] [phone] [facility] [address] [place] [address], [place] [phone] * (ABNORMAL) URINE BACTERIA CULTURE (12/09/2024 10:13 AM GOLF INSTRUCTOR) SPEC DESCRIPTION URINE BORGES CATH 12/09/2024 10:14 AM GOLF INSTRUCTOR [facility] SPECIAL REQUESTS NO SPECIAL REQUEST 12/09/2024 10:14 AM GOLF INSTRUCTOR [facility] CULTURE RESULT >100,000 COL/ML ESCHERICHIA COLI (A) 12/11/2024 7:32 AM [facility] CULTURE RESULT 50,000-100,000 COL/ML KLEBSIELLA PNEUMONIAE (A) 12/11/2024 7:32 AM [facility] URINE SPECIMEN OBTAINED VIA INDWELLING URINARY CATHETER / Unknown 12/09/2024 10:13 AM GOLF INSTRUCTOR 12/09/2024 10:21 AM GOLF INSTRUCTOR Narrative Organism Antibiotic Method Susceptibility Escherichia coli [...] OR DERABLES Final Result Performing Organization Address [facility] [address]/[facility] Co de Phone Number [facility] [address] [place] [id number], * PROTIME/INR, VENOUS (12/09/2024 4:55 AM GOLF INSTRUCTOR) PROTIME 11.9 10.2 - 12.9 SEC 12/09/2024 6:22 AM GOLF INSTRUCTOR [facility] INR 1.0 12/09/2024 6:22 AM GOLF INSTRUCTOR [facility] Comment: Recommended INR Therapeutic Goals: ??2.0-3.0 Routine Therapy ??2.5-3.5 Mechanical Prosthetic Valves (High Risk) 12/09/2024 4:55 AM GOLF INSTRUCTOR Charline Josh FAJARDO LABORATORY Final Res ult Performing Organization Address City/[facility] [address]/ZIP Co de Phone Number [facility] [address] [place] [address], [place] [phone] * (ABNORMAL) AMMONIA (12/09/2024 4:55 AM GOLF INSTRUCTOR) AMMONIA 47(H) 11 - 32 UMOL/L 12/09/2024 6:23 AM GOLF INSTRUCTOR [facility] 12/09/2024 4:55 AM GOLF INSTRUCTOR us Charline Moreno Jimy APNP LABORATORY Final Res ult [facility] [address] [place] [address], [place] [phone] * (ABNORMAL) URINALYSIS (12/08/2024 1:18 PM GOLF INSTRUCTOR) Only the most recent of2 resultswithin the time period is included. SPECIMEN TYPE URINE BORGES CATH 12/08/2024 1:18 PM GOLF INSTRUCTOR [facility] COLOR (U) LIGHT YELLOW 12/08/2024 1:48 PM GOLF INSTRUCTOR [facility] TRANSPARENCY CLEAR 12/08/2024 1:48 PM GOLF INSTRUCTOR [facility] SPECIFIC GRAVITY (U) 1.013 1.001 - 1.030 12/08/2024 1:48 PM GOLF INSTRUCTOR [facility] U PH 7.0 5.0 - 9.0 12/08/2024 1:48 PM GOLF INSTRUCTOR [facility] LEUKOCYTES (U) 250(A) NEGATIVE 12/08/2024 1:48 PM GOLF INSTRUCTOR [facility] NITRITES NEGATIVE NEGATIVE 12/08/2024 1:48 PM GOLF INSTRUCTOR [facility] PROTEIN RANDOM (U) NEGATIVE <30 MG/DL 12/08/2024 1:48 PM GOLF INSTRUCTOR [facility] GLUCOSE (U) NORMAL NORMAL MG/DL 12/08/2024 1:48 PM GOLF INSTRUCTOR [facility] KETONES MG/DL (U) NEGATIVE NEGATIVE MG/DL 12/08/2024 1:48 PM GOLF INSTRUCTOR [facility] UROBILINOGEN NORMAL NORMAL MG/DL 12/08/2024 1:48 PM GOLF INSTRUCTOR [facility] BILIRUBIN (U) NEGATIVE NEGATIVE MG/DL 12/08/2024 1:48 PM GOLF INSTRUCTOR [facility] BLOOD (U) TRACE(A) NEGATIVE 12/08/2024 1:48 PM GOLF INSTRUCTOR [facility] HYALINE CASTS RARE /LPF 12/08/2024 1:48 PM GOLF INSTRUCTOR [facility] WBC/HPF 8(H) <6 /HPF 12/08/2024 1:48 PM GOLF INSTRUCTOR [facility] RBC/HPF 5 <6 /HPF 12/08/2024 1:48 PM GOLF INSTRUCTOR [facility] URINE SPECIMEN OBTAINED VIA [employer]INARY CATHETER / Unknown 12/08/2024 1:18 PM GOLF INSTRUCTOR Charline CALLESNP URINE ORDERABLES Final Re sult Performing Organization Address [facility] [address]/ZIP Co de Phone Number [facility] [address] [place] [address], [place] [phone] * HEPATITIS PANEL,ACUTE (12/07/2024 6:36 PM GOLF INSTRUCTOR) HEPATITIS B SURFACE AG NON-REACTI VE NON-REACTI VE 12/07/2024 8:07 PM GOLF INSTRUCTOR [facility] HEP B CORE IGM NON-REACTI VE NON-REACTI VE 12/07/2024 8:11 PM GOLF INSTRUCTOR [facility] HAV IGM NON-REACTI VE NON-REACTI VE 12/07/2024 8:12 PM GOLF INSTRUCTOR [facility] HEPATITIS C AB NON-REACTI VE NON-REACTI VE 12/07/2024 8:10 PM GOLF INSTRUCTOR [facility] 12/07/2024 6:36 PM GOLF INSTRUCTOR Charline [facility] Final Res ult Performing Organization Address [facility] [address]/ZIP Co de Phone Number [facility] [address] [place] [address], [place] [phone] * CT CHEST+ABD+PEL W CON (12/07/2024 1:39 PM GOLF INSTRUCTOR) Anatomical Region Laterality Modality Chest, Abdomen, Pelvis Computed Tomography 12/07/2024 2:36 PM GOLF INSTRUCTOR Impressions 12/07/2024 3:05 PM GOLF INSTRUCTOR IMPRESSION:===== 1. Enlarged heterogeneous liver with nodular [...] 12/07/2024 2:36 PM Narrative 12/07/2024 3:05 PM GOLF INSTRUCTOR [facility] [address] [place], [place] [address] EXAMINATION: CT chest, abdomen and pelvis with [...] Procedure Note Luis Titus MD - 12/07/2024 [facility] [address] [place], [place] [address] EXAMINATION: CT chest, abdomen and pelvis with [...] * (ABNORMAL) TSH W/REFLEX (12/07/2024 5:53 AM GOLF INSTRUCTOR) Only the most recent of2 resultswithin the time period is included. TSH 9.350(H) 0.358 - 3.74 uIU/ML 12/07/2024 9:16 AM GOLF INSTRUCTOR [facility] Comment: HIGH DOSES OF BIOTIN MAY INTERFERE WITH THIS TEST RESULT. CORRELATION TO CLINICAL HISTORY AND PRESENTATION RECOMMENDED. 12/07/2024 5:53 AM GOLF INSTRUCTOR Charline FAJARDO LABORAT[facility] Final Res ult [facility] [address] [place] [address], * (ABNORMAL) FREE T3 (12/07/2024 5:53 AM GOLF INSTRUCTOR) FREE T3 1.3(L) 2.2 - 3.9 PG/ML 12/08/2024 7:54 AM GOLF INSTRUCTOR [facility] 12/07/2024 5:53 AM GOLF INSTRUCTOR Charline Chadwick STEVAN LABORAT[facility] Final Res ult Performing Organization Address City/[facility] [address]/[facility] Co de Phone Number [facility] [address] [place] [address], [phone] * THYROXINE, FREE (FT4) (12/07/2024 5:53 AM GOLF INSTRUCTOR) Only the most recent of2 resultswithin the time period is included. FREE T4 1.36 0.76 - 1.46 NG/DL 12/07/2024 11:22 AM GOLF INSTRUCTOR [facility] 12/07/2024 5:53 AM GOLF INSTRUCTOR Charline Chadwick ST[facility]AN [facility] Final Res ult [facility] [address] [place] [address], [place] [phone] * MAGNESIUM (12/07/2024 5:53 AM GOLF INSTRUCTOR) Only the most recent of3 resultswithin the time period is included. MAGNESIUM 2.1 1.8 - 2.4 MG/DL 12/07/2024 9:16 AM GOLF INSTRUCTOR [facility] 12/07/2024 5:53 AM GOLF INSTRUCTOR us Charline Chadwick APNP LABORATORY Final Res ult [facility] [address] [place] [address], [place] [phone] * US ABD LIMITED (12/06/2024 1:15 PM GOLF INSTRUCTOR) Anatomical Region Laterality Modality Abdomen Ultrasound 12/06/2024 2:04 PM GOLF INSTRUCTOR Impressions 12/06/2024 2:06 PM GOLF INSTRUCTOR =====IMPRESSION:===== Small volume ascites with the largest right lower quadrant fluid pocket depth of 11 cm. Ordered By: CHARLNIE CHADWICK Interpreted By: Alejandra Willis MD, 12/06/2024 2:04 PM Narrative 12/06/2024 2:06 PM GOLF INSTRUCTOR [facility] [address] [place], [place] [address] Exam: Abdominal ultrasound ascites check Exam Date/Time: [...] Note Alejandra Willis MD - 12/06/2024 [facility] [address] [place], [place] [address] Exam: Abdominal ultrasound ascites check Exam Date/Time: [...] (ABNORMAL) BASIC METABOLIC PANEL (12/06/2024 9:22 AM GOLF INSTRUCTOR) Only the most recent of6 resultswithin the time period is included. GLUCOSE 131(H) 70 - 99 MG/DL 12/06/2024 10:32 AM [facility] BUN 21(H) 7 - 18 MG/DL 12/06/2024 10:32 AM [facility] CREATININE S/P/B 1.02 0.55 - 1.02 MG/DL 12/06/2024 10:32 AM [facility] SODIUM S/P/B 127(L) 136 - 145 MMOL/L 12/06/2024 10:32 AM [facility] POTASSIUM S/P/B 3.6 3.5 - 5.1 MMOL/L 12/06/2024 10:32 AM [facility] CHLORIDE S/P/B 82(L) 97 - 115 MMOL/L 12/06/2024 10:32 AM [facility] CO2 41.9(HH) 21 - 32 MMOL/L 12/06/2024 10:32 AM [facility] Comment: Critical Result(s) Called at: 10:31:02 on 12/06/2024 by: NILDA NATHAN to and read back by:KATIE NICOLE CALCIUM S/P/B 9.4 8.5 - 10.1 MG/DL 12/06/2024 10:32 AM GOLF INSTRUCTOR [facility] ANION GAP 3.1 2 - 10 MMOL/L 12/06/2024 10:32 AM [facility] BUN CREATININE RATIO 20.6 6 - 26 12/06/2024 10:32 AM [facility] GFR ESTIMATE 65(L) >90 ML/MIN/1.7 3 M2 12/06/2024 10:32 AM [facility] Comment: NOTE: eGFR is not calculated for patients <18 years of age or gender unknown. This is an estimated GFR calculation using the new CKD EPI creatinine equation without race and so does not require a correction factor for race. This estimated GFR should not be used for calculating drug doses. 12/06/2024 9:22 AM GOLF INSTRUCTOR Charline CALLESNP LABORATORY Final Res ult [facility] [address] [place] [address], [place] [phone] * CORTROSYN STIMULATION (12/04/2024 1:00 PM GOLF INSTRUCTOR) Only the most recent of2 resultswithin the time period is included. CORTISOL BASELINE 44.7 mcg/dL 12/04/2024 1:44 PM GOLF INSTRUCTOR [facility] 12/04/2024 1:0 0 PM GOLF INSTRUCTOR Kerry Gordon SUPERVISOR KENNEL LABORATORY Final Result [facility] [address] [place] [address], [place] [phone] * CORTISOL AM (12/03/2024 7:58 AM GOLF INSTRUCTOR) CORTISOL 8AM 8.5 4.0 - 20.0 mcg/dL 12/03/2024 8:40 AM GOLF INSTRUCTOR [facility] 12/03/2024 7:58 AM GOLF INSTRUCTOR Jermaine Reddy MD LABORATORY Final Result [facility] [address] [place] [address], * (ABNORMAL) IRON SAT PANEL (IRON,IBC,%SAT) (12/03/2024 5:05 AM GOLF INSTRUCTOR) IRON 23(L) 50.0 - 170.0 MCG/DL 12/03/2024 6:28 AM GOLF INSTRUCTOR [facility] IRON BINDING CAPACITY 454(H) 250 - 450 MCG/DL 12/03/2024 6:28 AM [facility] IRON SATURATION 5(L) 20 - 55 % 6:28 AM [facility] 12/03/2024 5:05 AM GOLF INSTRUCTOR Hamlet Arrieta APRN LABORATORY Final Result [facility] [address] [place] [address], * VITAMIN B-12 (12/03/2024 5:05 AM GOLF INSTRUCTOR) VITAMIN B12 S/P/B 586 254 - 1,320 PG/ML 12/03/2024 6:32 AM GOLF INSTRUCTOR [facility] 12/03/2024 5:05 AM GOLF INSTRUCTOR Césarsantos Trever Arrieta APRN LABORATORY Final Result Performing Organization Address City/[facility] [address]/ZIP Co de Phone Number [facility] [address] [place] [address], [place] [phone] * (ABNORMAL) FOLIC ACID SERUM (12/03/2024 5:05 AM GOLF INSTRUCTOR) FOLATE 41.4(H) 3.1 - 17.5 NG/ML 12/03/2024 6:32 AM GOLF INSTRUCTOR [facility] 12/03/2024 5:05 AM GOLF INSTRUCTOR Hamlet Arrieta APRN LABORATORY Final Result Performing Organization Address [facility] [address]/[facility] Co de Phone Number [facility] [address] [place] [address], [place] [phone] * FERRITIN (12/03/2024 5:05 AM GOLF INSTRUCTOR) FERRITIN 10.7 8.0 - 388.0 NG/ML 12/03/2024 6:32 AM GOLF INSTRUCTOR [facility] 12/03/2024 5:05 AM GOLF INSTRUCTOR Césarsantos Perera Magdi BOND LABORATORY Final Result Performing Organization Address City/[facility] [address]/[facility] Co de Phone Number [facility] [address] [place] [address], [place] [phone] * SODIUM URINE RANDOM (12/02/2024 6:00 PM GOLF INSTRUCTOR) Only the most recent of2 resultswithin the time period is included. NA RANDOM (U) 70 MMOL/L 12/03/2024 12:15 PM GOLF INSTRUCTOR [facility] Comment:REFERENCE RANGE NOT ESTABLISHED URINE SPECIMEN / Unknown 12/02/2024 6:00 PM GOLF INSTRUCTOR Jermaine Reddy MD URINE ORDERABLES Final Result Performing Organization Address City/[facility] [address]/ZIP Co de Phone Number [facility] [address] [place] [address], [place] [phone] * OSMOLALITY, URINE (12/02/2024 6:00 PM GOLF INSTRUCTOR) Only the most recent of2 resultswithin the time period is included. OSMOLALITY (U) 268 50 - 1,200 MOSM/KG 12/02/2024 6:50 PM GOLF INSTRUCTOR [facility] URINE SPECIMEN / Unknown 12/02/2024 6:00 PM GOLF INSTRUCTOR Jermaine Reddy MD URINE ORDERABLES Final Result Performing Organization Address [facility] [address]/[facility] Co de Phone Number [facility] [address] [place] [address], [place] [phone] * XR ABD KUB (12/02/2024 2:37 PM GOLF INSTRUCTOR) Anatomical Region Laterality Modality Abdomen Radiographic Clarissa ging 12/02/2024 3:19 PM GOLF INSTRUCTOR Impressions 12/02/2024 3:39 PM GOLF INSTRUCTOR IMPRESSION: Limited abdominal radiographs with greatest air distention of bowel loops in the left upper quadrant. Consider CT for evaluation if clinically indicated. Ordered By: HAMLET ARRIETA Interpreted By: Ant Morse, 12/02/2024 3:19 PM Narrative 12/02/2024 3:39 PM GOLF INSTRUCTOR [facility] [address] [place], [place] [address] IMAGING STUDIES: ??XR ABD KUB ? DATE: [...] Procedure Note Ant Morse MD - 12/02/[address] [address] IMAGING STUDIES: XR ABD KUBDATE: 12/02/2024 2:17 [...] Morse, 12/02/2024 3:19 PM us Hamlet Arrieta BILLING COORDINATOR GENERAL IMAGING Final Result * USE ECHOCARDIOGRAM (12/02/2024 10:11 AM GOLF INSTRUCTOR) Anatomical Region Laterality Modality Cardiac Echocardiogram 12/02/2024 10:2 4 AM GOLF INSTRUCTOR Narrative 12/02/2024 9:35 PM GOLF INSTRUCTOR ?Echocardiography Report Pat.Name: ??ZENIA ALVAREZ ?Pat.ID: ?[id number] ? St.Date: ?? 12/02/2024 ? Refer.MD: ??anatoliy [...] 12/02/2024 Echocardiography Report Pat.Name: ZENIA ALVAREZ Pat.ID: [id number] .Date: 12/02/2024 Refer.MD: anatoliy Krishnamurthy Exam Time: 10:24:00 AM Study Type:ECHO WITH CARDIAC DOPPLER COMP Height: 77 in Weight: 230 lb BSA: 2.37 m2 Age: 3 1970,54Y Sex: F HR: 60 bpm Sonogrphr: Aline Acevedo [facility] Pat. Stat.:Inpatient Room: [facility] Reason for Study:CHF Procedures: 2D, M-mode, Doppler, [...] t * TROPONIN, QUANT (12/01/2024 11:20 PM GOLF INSTRUCTOR) Only the most recent of3 resultswithin the time period is included. Pathologist [facility] TROPONIN I HIGH SENSITIVITY 19 <54 ng/L 12/02/2024 12:01 AM GOLF INSTRUCTOR [facility] Comment: HIGH DOSES OF BIOTIN, TROPONIN-SPECIFIC AUTOANTIBODIES, AND ANTIBODY THERAPY CONTAINING HAMA MAY INTERFERE WITH THIS TEST RESULT. CORRELATION TO CLINICAL HISTORY AND PRESENTATION RECOMMENDED. 12/01/2024 11:2 0 PM GOLF INSTRUCTOR us Anatoliy Krishnamurthy BILLING COORDINATOR LABORATORY Final Resul t Performing Organization Address City/[facility] [address]/[facility] Co de Phone Number [facility] [address] [place] [address], * (ABNORMAL) OSMOLALITY, BLOOD (12/01/2024 11:20 PM GOLF INSTRUCTOR) [facility] OSMOLALITY (S/P/B) 266(L) 270 - 290 MOSM/KG 12/01/2024 11:39 PM GOLF INSTRUCTOR [facility] 12/01/2024 11:2 0 PM GOLF INSTRUCTOR us Anatoliy Krishnamurthy BILLING COORDINATOR LABORATORY Final Resul t Performing Organization Address City/[facility] [address]/ZIP Co de Phone Number [facility] [address] [place] [address], * (ABNORMAL) PRO-BRAIN NATRIURETIC PEPTIDE (12/01/2024 7:26 PM GOLF INSTRUCTOR) Only the most recent of2 resultswithin the time period is included. Pathologist [facility] PRO-B TYPE NATRIURETIC PEPTIDE 2,760(H) <125 PG/ML 12/01/2024 8:17 PM GOLF INSTRUCTOR [facility] Comment: CUT POINTS ESTABLISHED BY INTERNATIONAL [...] 72% FOR ACUTE CHF. 12/01/2024 7:26 PM GOLF INSTRUCTOR us Yash Sheth PA-C LABORATORY Final Resul t Performing Organization Address City/[facility] [address]/ZIP Co de Phone Number [facility] [address] [place] [address], [place] [phone] * PHOSPHORUS, INORGANIC PHOSPHATE (12/01/2024 7:26 PM GOLF INSTRUCTOR) PHOSPHORUS 2.8 2.5 - 4.9 MG/DL 12/01/2024 9:23 PM GOLF INSTRUCTOR [facility] 12/01/2024 7:26 PM GOLF INSTRUCTOR us Anatoliy Krishnamurthy APRN LABORATORY Final Resul t [facility] [address] [place] [address], [place] [phone] * (ABNORMAL) LIPASE (12/01/2024 7:26 PM GOLF INSTRUCTOR) LIPASE 12(L) 13 - 75 UNITS/L 12/01/2024 8:17 PM GOLF INSTRUCTOR [facility] 12/01/2024 7:26 PM GOLF INSTRUCTOR us Yash ROJO-C LABORATORY Final Resul t [facility] [address] [place] [address], [place] [phone] * XR CHEST PORTABLE (12/01/2024 7:03 PM GOLF INSTRUCTOR) Only the most recent of2 resultswithin the time period is included. Anatomical Region Laterality Modality Chest Radiographic Clarissa ging 12/01/2024 7:15 PM GOLF INSTRUCTOR Impressions 12/01/2024 7:15 PM GOLF INSTRUCTOR Impression: Cardiomegaly and pulmonary vascular congestion. Referred By: ?? Interpreted By: Rolf Pyle MD, 12/01/2024 7:15 PM Narrative 12/01/2024 7:15 PM GOLF INSTRUCTOR [facility] [address] [place], [place] [address] Examination: Chest 1 view portable History: Pain DATE/TIME: 12/01/2024 6:51 PM Comparison: October 21, 2024 Technique: AP upright portable view of the chest was obtained. Findings: Cardial megaly. ??Mild pulmonary vascular congestion. ??No pulmonary consolidation, pleural effusion or pneumothorax. ??Mild linear left basilar atelectasis. ??No acute osseous abnormality. Procedure Note Rolf Pyle MD - 12/01/2024 [facility] [address] [place], [place] [address] Examination: Chest 1 view portable History: Pain [...] * ECG 12 lead (12/01/2024 6:52 PM GOLF INSTRUCTOR) Only the most recent of2 resultswithin the time period is included. 12/01/2024 6:52 PM GOLF INSTRUCTOR Narrative [facility] - 12/02/2024 9:35 AM GOLF INSTRUCTOR ?[facility] ? [address] [facility] [place] ? Test Date: ?2024-12-01 Pat Name: ? ZENIA ALVAREZ ?Department: ?? 41 ? Room: ? A501 Gender: ? Female ? Director Integrated: ?? [id number] : ?1970 ? Requested By: YASH SHETH Order Number: [id number] ? Reading : ?? Ayden Ramirez ? Measurements Intervals ?[place] ? Rate: ? 62 ? P: ?59 ND: ? 205 ?QRS: ?-32 QRSD: ? 114 ?T: ?74 QT: ? 464 ? QTc: ?472 ? Interpretive Statements SINUS RHYTHM LEFT AXIS DEVIATION ??[QRS AXIS < -30] Poor R Wave Progression Compared to ECG 10/21/2024 19:48:49 Left-axis deviation now present INSTRUCTOR Procedure Note Ayden Ramirez MD - 12/02/[address] Test Date: 2024-12-01 Pat Name: ZENIA ALVAREZ Department: 41 Room: 01 Gender: Female Director Integrated: [id number] : 1970 Requested By: YASH SHETH Order Number: [id number] Reading MD: Ayden Ramirez Measurements Intervals [place] Rate: 62 P: 59 ND: 205 QRS: -32 QRSD: 114 T: 74 QT: 464 QTc: 472 Interpretive Statements SINUS RHYTHM LEFT AXIS DEVIATION [QRS AXIS < -30] Poor R Wave Progression Compared to ECG 10/21/2024 19:48:49 Left-axis deviation now present INSTRUCTOR us Yash Sheth PA-C ECG ORDERABLES Final Resul t Performing Organization Address City/State/[facility] Co de Phone Number [facility] * Critical Care (12/01/2024 6:45 PM GOLF INSTRUCTOR) Narrative Arturo Garza, DO - 12/01/2024 6:45 PM GOLF INSTRUCTOR Yash Sheth PA-C ? 12/01/2024 ??8:36 PM [...] Final Result from Last 3 Months Insurance [facility] C/O PROVIDER SERVICES ALIA PLUNKETT [id number] Advance Directives Documents on File Type Date Recorded Patient Appliance Servicer Expl anation Advance Directives and Living Will [...] 10:22 PM 08/22/2024 4:17 PM Care Teams Cell Coverer Relationship Specialty Start Date End Date Murali Hernandez DO [address] [facility] [place] [address] PCP - General FAMILY PRACTICE 08/18/24
--- OUTSIDE RECORDS SUMMARY | 2024-12-20 00:52 | XMS_ITS | Referral Summary ---
Author Organization [facility] Address [address] [place] [address] Care Team Providers Care Distributed Generation Project Manager Name Role Phone [place] Boyd DO Primary Care Provider + Nato Medrano MD Unavailable [phone] Kasey Krishnan Unavailable Encounters Date Type Department Care Team Description 11/14/2024 Telephone [facility] Cardiology [address] [place] [phone] Brook Acosta MD from Last 3 [...] 09/14/2023 Assessment & Plan (11/09/2023 5:28 PM COMBUSTION ANALYST): stable Primary hypertension 09/14/2023 Assessment & Plan (11/09/2023 5:26 PM COMBUSTION ANALYST): Patient is well controlled. Continue current treatment. Morbid (severe) obesity due to excess calories 1 Hyponatremia 08/24/2023 Coronary artery disease invo lving [place] coronary artery of [place] heart without angina pectoris 03/10/2023 Assessment & Plan (11/09/2023 5:27 PM COMBUSTION ANALYST): Patient is well controlled. Continue current treatment. H/O cardiomyopathy 03/10/2023 PAD (peripheral artery disease) 03/10/2023 Assessment & Plan (11/09/2023 5:26 PM COMBUSTION ANALYST): Patient is well controlled. Continue current treatment. Mixed hyperlipidemia 03/10/2023 Acute non-recurrent frontal sinusitis 01/20/2023 Assessment & Plan (01/20/2023 12:51 PM COMBUSTION ANALYST): Keflex Tessalon perles Abnormal stress test 01/02/2023 [...] 12/03/2021 Assessment & Plan (12/03/2021 11:29 AM COMBUSTION ANALYST): Add mobid 7.5 Allergic rhinitis 12/03/2021 Assessment & Plan (06/21/2023 2:16 PM CDT): Chronic. Continues. I will add montelucast Assessment & Plan (12/03/2021 11:25 AM COMBUSTION ANALYST): Continue singulair Annual physical exam 12/04/2020 Assessment & Plan (08/11/2022 3:25 PM CDT): Routine lab Mammogram Assessment & Plan (12/03/2021 11:24 AM COMBUSTION ANALYST): Routine lab She is having sciatica. She has been seeing a chiropractor but due to the COVID outbreak she has withheld treatment for now. She will get back. I am going to add pain medication to get her through Mammogram Assessment & Plan (12/04/2020 10:51 AM COMBUSTION ANALYST): shingrex Mammogram Declines colonoscopy Dyspnea on exertion [...] t4 Assessment & Plan (12/03/2021 11:24 AM COMBUSTION ANALYST): She needs a TSH and free T4 [...] 12/03/2021 Assessment & Plan (12/04/2020 10:58 AM COMBUSTION ANALYST): Ct abdomen and pelvis Immunizations Name Administration [...] drink = 0.6 oz pur e alcohol) [facility] Utilities Answer Date Recorded In the past 12 months has [employer], gas, oil, or water [employer] threatened to shut off services in your [...] often do you attend chur ch or synagogue services? 1 to 4 times per year 09/15/2023 Do you belong to any clubs o r organizations such as mormonism groups, unions, fraternal or athletic groups, or [...] place to sleep or slept in a jail (including now)? No 09/15/2023 Personal Safety Answer Date Recorded Have you ever been in or are you currently in a harmful physical or emotional relationship or is someone making you feel afraid or unsafe? Denies 09/04/2024 Comments No Sex and Gender Information Value Date Recorded Sex Assigned at Not on file Legal Sex Female 12:17 PM COMBUSTION ANALYST Gender Identity Female 08/30/2022 1:15 PM CDT Sexual Orientation Not on file Last Filed Vital Signs Vital Sign Reading Time Taken Comments Blood Pressure 140/52 01/16/2024 2:31 PM COMBUSTION ANALYST Pulse 73 01/16/2024 2:31 PM COMBUSTION ANALYST Temperature 36.6 ??C (97.9 ??F) 11/09/2023 4:48 PM CS T Respiratory Rate 18 09/04/2024 11:32 PM CDT Oxygen Saturation 90% 01/16/2024 2:31 PM COMBUSTION ANALYST Inhaled Oxygen Concentration - - Weight 81.6 kg (180 lb) 09/04/2024 11:32 PM CDT Height 162.6 cm (5' 4 ) 09/04/2024 11:32 PM CDT Body Mass Index 30.9 09/04/2024 11:32 PM CDT Plan of Treatment Not on file Medical Devices Implanted Type Area Electronic Organ Technician Device Identifier Shelf Expiration Date Model / Serial / Lot [employer] Device Closure Vascade Od5 Fr Femoral Artery [id number] - [id number] Implanted:Qty: 1 on 02/07/2023 by Brook Acosta MD at [facility] [employer] [facility] 11/10/2024 [id number] / / [id number] Insurance [facility] PLAN [facility] PLAN ALIA PLUNK[employer]T [facility] Advance Directives For more information, please contact: [phone] Documents on File Type Date Recorded Patient Day Camp Unit Leader Expl anation ADVANCE DIRECTIVE 10/30/2023 11:11 PM POW ER OF EMBOSSING MACHINE OPERATOR-MEDICAL Power of Performance Specialist 09/24/2023 7:56 PM * Full Code (Latest [...] Cody Other Health Care Agent Care Teams Distributed Generation Project Manager Relationship Specialty Start Date End Date Murali Hernandez DO PCP - General Family Medicine 03/25/19 [place] [address] [facility] [address] [place] [address] Consulting Physician Nephrology 08/30/23 Kasey Krishnan PA [address] [place] [address] Physician Form Tamping Machine Operator Medical Oncology 10/27/23
--- OUTSIDE RECORDS SUMMARY | 2024-12-20 00:52 | XMS_ITS | CONTINUITY OF CARE DOCUMENT ---
Author Name kate love Address Unknown Organization [facility] Address [address] [facility] [address] [place] [address] Phone [phone] Care Team Providers Care Well Logger Name Role Phone [email or web address] Unavailable Unavailable INSURANCE PROVIDERS Payer name Policy type / Coverage type [facility] constitution party ID MELISSA- OPEN ACCESS/PPO Other [id number]
[2024-12-20] MEDS: FUROSEMIDE INJ 40 MG/4 ML VIAL IV PUSH ×3 (00:58→21:46)
[2024-12-20 01:09] LABS: Fractional Inspired Oxygen 29 %; HCO3 ABG 27.4 mEq/l (22.0-26.0); Oxygen Content ABG 16.1 %vol (16.0-22.0); Oxygen Saturation ABG 93.1 % (95.0-100.0); Oxyhemoglobin 88.6 % THb (90.0-100.0); PCO2 ABG 50.9 mmHg (35.0-45.0); PO2 ABG 70.2 mmHg (80.0-100.0); PO2 FiO2 Ratio Arterial Blood 2.46 %; Total Hemoglobin 12.9 g/dL (12.0-18.0); pH ABG 7.349 (7.350-7.450)
[2024-12-20 01:12] LABS: Device NASAL CANNULA; Liters per Minute 2.5 LPM; Modified Allen's Test Pass; Site Drawn LEFT RADIAL
[2024-12-20 02:04] LABS: Lactic Acid Reflex < 0.5 mmol/L (0.7-2.0)
[2024-12-20 02:16] LABS: NT Pro B Type Natriuretic Pept 3240 pg/mL (19.9-100); Troponin I < 0.012 ng/mL (0.000-0.034)
[2024-12-20 02:20] LABS: Add Urine Microscopic? YES; Appearance Urine Clear (Clear); Bacteria Urine None Seen /hpf; Bilirubin Urine Negative (Negative); Blood Urine Negative (Negative); Color Urine Yellow (Yellow); Glucose Urine UA Negative (Negative); Ketones Urine Negative (Negative); Leukocyte Esterase Ur Negative LEU/UL (Negative); Nitrate Urine Negative (Negative); Non Pathogenic Casts 0-2; Protein Urine 1+ mg/dL (Negative); RBC Urine 0-2 /hpf (0-2); Specific Grav Ur 1.006 (1.001-1.035); Squamous Epithelial Cell Urine None Seen /hpf (Few); Urobilinogen Urine 0.2 mg/dL (<2.0); WBC Urine 0-5 /hpf (0-3)
--- NOTE | 2024-12-20 04:20 | ADMGEN ---
This patient, Karlie Cody, was admitted to Medical Room 343-01. Patient/family oriented to hospital policies and general routines including ID bracelet, bed and alarms, visiting hours, pain management, procedures, bathroom and other care routines, personal items, smoking policy, room service/diet, and visiting hours. Information on how to activate the Rapid Response Team has been discussed. Patient/Family are encouraged to report perceived risks to care and to ask questions if they do not understand what they are told or what they should do.
[2024-12-20 05:12] LABS: Troponin I < 0.012 ng/mL (0.000-0.034)
[2024-12-20 05:17] LABS: Amphetamine Screen Urine Negative (Negative); Barbiturate Screen Urine Negative (Negative); Benzodiazepines Screen Urine Negative (Negative); Cannabinoid Screen Urine Negative (Negative); Cocaine Screen Urine Negative (Negative); Methadone Screen Urine Negative (Negative); Opiate Screen Urine Negative (Negative); Phencyclidine Screen Urine Negative (Negative)
--- NOTE | 2024-12-20 05:18 | PC.NURSE ---
Patient is confused and unable to answer admission questions at this time. Son, Murali, was contacted in attempt to complete admission. Provided medication information at hand, but seems to be incomplete and patient not in compliance with treatment. Patient states she was just released from [facility] with prescriptions, but none have been picked up from pharmacy, per son. Medical information completed to sons and patients knowledge.
[2024-12-20] MEDS: LEVOTHYROXINE SODIUM 75 MCG TABLET PO (08:23)
[2024-12-20] MEDS: LEVOTHYROXINE SODIUM 100 MCG TABLET PO (08:23)
[2024-12-20] MEDS: ASPIRIN 81 MG ENTERIC TABLET PO (08:23)
[2024-12-20] MEDS: LORazepam INJ (*CRX) 2 MG/ML VIAL 0.5 MG IV PUSH (08:24)
[2024-12-20] MEDS: SPIRONOLACTONE 50 MG TABLET 100 MG PO (08:28)
--- NOTE | 2024-12-20 09:56 | PM.CNCAR ---
Assessment and Plan Assessment and plan (1) Acute on chronic heart failure with preserved ejection fraction (HFpEF): Code(s): I50.33 - Acute on chronic diastolic (congestive) heart failure Status: Acute Plan 1. Acute on chronic heart failure with preserved LVEF 2. Non-obstructive CAD per [facility] January 2023 3. Hypertension 4. Hyperlipidemia 5. Hypothyroidism 6. Hyponatremia. Has had issues with hyponatremia in the past due to excessive fluid intake in the form of caffeinated sweet tea PLAN: 1. Continue IV Lasix 40mg BID. Please monitor strict I/Os. 2. Continue Coreg, Spironolactone. 3. Continue ASA 81mg once daily. Does not appear she is taking a statin at home. Recommend statin. 4. Obtain echo. She had previously been seeing Dr. Bai, however, our office no longer accepts her insurance and therefore, we have not seen her in some time now. If she is not already established with a human resources psychologist as an outpatient, she will need to establish care with one that is within her insurance network after hospital discharge. History of Present Illness History of Present Illness Consult date/time: 12/20/24 09:56 Requesting physician: Alberto Bustillo PA-C Consult reason: congestive heart failure Reason For Visit: CHF exacerbation Narrative: We are consulted for CHF. Karlie is a 54 year old female with a history of heart failure with mildly reduced LVEF of 45% that had subsequently improved to 61%, hypertension, hyperlipidemia, hypothyroidism. She had previously been seeing Dr. Bai, however, our office no longer accepts her insurance and therefore, we have not seen her in some time now. [facility] 01/2023 showed non-obstructive CAD. History is difficult to obtain from the patient as she keeps falling asleep easily during my examination (she was given Ativan this morning). States she came to the hospital because she was feeling bad. Cannot tell me if she has been seeing a human resources psychologist recently. Reports lower extremity edema that has been ongoing for a year now according to patient. Workup shows negative troponins x 3. NT pro BNP of 3240. CXR with mild interstitial edema. EKG with sinus rhythm, poor R-wave progression. No prior EKG in our [facility] system. She has been started on IV Lasix. Review of Systems Review of Systems: Limited ROS obtained due to mental status. [facility] Past Medical History Medical History COPD (chronic obstructive pulmonary disease) Family History Family History Other Unknown family medical history Social History Social History Smoking packs per day: 1.5 Smoking cigarettes per day: 30.0 Years smoked: 40 Smoking pack-years: 60.00 Smoking status: Current every day smoker Tobacco type: cigarettes Alcohol intake: never Substance use: never Do You Feel Safe in your Home?: Yes Lack of Transportation: No Lack of Food: Never True Current Housing: I Have Housing Concerned About Future Housing: YES Difficulty Paying Gas/Electric Bills: YES Difficulty Paying for Meds: YES Currently Unemployed: No Education: Decline to Answer Difficulty w/ Childcare or Family Care: No Spiritual care concerns: No Meds Home Medications and Allergies Home Medications ?Medication ?Instructions ?Recorded ?Confirmed ?Type albuterol sulfate 90 mcg/actuation 2 puff inhalation QID PRN sob 05/15/24 12/20/24 History aerosol inhaler bumetanide 2 mg tablet 2 mg PO DAILY 05/15/24 12/20/24 History levothyroxine 175 mcg tablet 175 mcg PO DAILY 05/15/24 12/20/24 History (Synthroid) aspirin 81 mg tablet,delayed 81 mg PO DAILY 12/20/24 12/20/24 History release (Adult Aspirin Regimen) carvedilol 3.125 mg tablet 3.125 mg PO Q12H 12/20/24 12/20/24 History gabapentin 100 mg capsule 100 mg PO Q12H 12/20/24 12/20/24 History spironolactone 100 mg tablet 100 mg PO DAILY 12/20/24 12/20/24 History Allergies Allergy/AdvReac Type Severity Reaction Status Date / Time azithromycin Allergy Unknown MOUTH Verified 12/19/24 21:12 PEELED codeine Allergy Unknown VOMITING Verified 12/19/24 21:12 Vital Signs Vital Signs - 24 hr 12/19/24 21:47 12/19/24 21:56 12/20/24 00:15 Temperature 36.7 C Pulse Rate 63 64 Respiratory Rate 16 Blood Pressure 152/41 H Pulse Oximetry 95 92 Oxygen Delivery Nasal Cannula Oxygen Flow Rate 2 12/20/24 00:15 12/20/24 00:15 12/20/24 02:20 Temperature Pulse Rate 59 L 52 L Respiratory Rate 15 18 Blood Pressure 162/48 H 168/49 H Pulse Oximetry 98 98 98 Oxygen Delivery Room Air Oxygen Flow Rate 12/20/24 03:43 12/20/24 04:25 12/20/24 04:25 Temperature Pulse Rate 55 L 54 L Respiratory Rate 15 Blood Pressure 158/54 H Pulse Oximetry 98 97 Oxygen Delivery Nasal Cannula Oxygen Flow Rate 2 12/20/24 05:00 12/20/24 08:00 12/20/24 08:28 Temperature 36.4 C L Pulse Rate 62 57 L 57 L Respiratory Rate 18 18 Blood Pressure 155/57 H Pulse Oximetry 97 97 Oxygen Delivery Nasal Cannula Oxygen Flow Rate 2 Exam Const: General: no acute distress Other: Sleepy HENMT: Mouth: Yes moist mucous membranes Eyes: Sclera: sclerae normal Other: Pupils appear dilated bilaterally Resp: Effort & Inspection: normal respiratory effort Auscultation: clear to auscultation bilaterally Other: On supplemental oxygen Cardio: Rate: regular rate Rhythm: regular rhythm Heart sounds: no murmurs Other: + Bilateral lower extremity edema Neuro: Other: Falls asleep quickly Results Labs and Meds 12/19/24 22:00 12/19/24 22:30 Lab results: Cardiac Enzymes 12/19/24 12/20/24 12/20/24 Range/Units 22:30 01:31 04:37 AST 14 (14-36) U/L Troponin I < 0.012 < 0.012 < 0.012 (0.000-0.034) ng/mL Coagulation 12/19/24 Range/Units 22:00 PT 15.4 H (11.1-14.7) Seconds APTT 37.4 H (22.3-36.8) Seconds CBC 12/19/24 Range/Units 22:00 WBC 8.2 (4.5-10.0) K/mm3 RBC 5.07 (4.2-5.4) M/mm3 Hgb 12.6 (12.0-15.0) g/dL Hct 40.1 (37.0-47.0) % Plt Count 244 (150-375) k/mm3 Lymph # (Auto) 1.30 (0.9-3.2) K/mm3 [place] # (Auto) 0.4 (0.1-0.6) K/mm3 Eos # (Auto) 0.1 (0-0.3) K/mm3 Baso # (Auto) 0.1 (0.0-0.1) K/mm3 Comprehensive Metabolic Panel 12/19/24 Range/Units 22:30 Sodium 130 L (137-145) mmol/L Potassium 4.9 (3.4-5.0) mmol/L Chloride 93 L (98-107) mmol/L Carbon Dioxide 29 (22-30) mmol/L BUN 7 (7-17) mg/dL Creatinine 0.68 L (0.7-1.0) mg/dL Glucose 117 H (65-110) mg/dL Calcium 9.8 (8.4-10.2) mg/dL AST 14 (14-36) U/L ALT 6 (6-35) U/L Alkaline Phosphatase 114 (38-126) U/L Total Protein 7.0 (6.3-8.2) g/dL Albumin 3.7 (3.5-5.1) g/dL Patient Weight 12/20/24 23:59 Weight 86.6 kg
--- NOTE | 2024-12-20 11:14 | PM.IMHP ---
H&P: HPI History of Present Illness Date/Time: 12/20/24 11:14 Chief Complaint: chest pain Narrative: 54-year-old female with pmh/o htn, cad, hld, hypothyroidism admitted for chest pain started last night. She was initially following with cardiology here but due to insurance issues, went elsewhere and quit going all together. Unsure if she was complaint with her meds. Unsure if she had PCP Most history obtained from ER notes as pt is drowsy from anti anxiety med she received earlier. Patient reported the pain is on the left side of her chest. Pain comes and goes and lasts only few seconds to minutes. States it does not radiate. Per RN report, pt was extremely anxious this am, worries about code status being incorrectly entered into computer. She was re ensued that she is a full code. Later she proceeded calling her family and was going on and on. When i was able to come and see her, she was drowsy but able to open eyes and follow simple one step commands. She reported no chest pain. She appeared to be in no distress. She will be admitted on tele and cardiology consult. [facility] Past Medical History Medical History COPD (chronic obstructive pulmonary disease) Family History Family History Other Unknown family medical history Social History Social History Smoking packs per day: 1.5 Smoking cigarettes per day: 30.0 Years smoked: 40 Smoking pack-years: 60.00 Smoking status: Current every day smoker Tobacco type: cigarettes Alcohol intake: never Substance use: never Do You Feel Safe in your Home?: Yes Lack of Transportation: No Lack of Food: Never True Current Housing: I Have Housing Concerned About Future Housing: YES Difficulty Paying Gas/Electric Bills: YES Difficulty Paying for Meds: YES Currently Unemployed: No Education: Decline to Answer Difficulty w/ Childcare or Family Care: No Spiritual care concerns: No Meds Home Medications and Allergies Home Medications ?Medication ?Instructions ?Recorded ?Confirmed ?Type albuterol sulfate 90 mcg/actuation 2 puff inhalation QID PRN sob 05/15/24 12/20/24 History aerosol inhaler bumetanide 2 mg tablet 2 mg PO DAILY 05/15/24 12/20/24 History levothyroxine 175 mcg tablet 175 mcg PO DAILY 05/15/24 12/20/24 History (Synthroid) aspirin 81 mg tablet,delayed 81 mg PO DAILY 12/20/24 12/20/24 History release (Adult Aspirin Regimen) carvedilol 3.125 mg tablet 3.125 mg PO Q12H 12/20/24 12/20/24 History gabapentin 100 mg capsule 100 mg PO Q12H 12/20/24 12/20/24 History spironolactone 100 mg tablet 100 mg PO DAILY 12/20/24 12/20/24 History Allergies Allergy/AdvReac Type Severity Reaction Status Date / Time azithromycin Allergy Unknown MOUTH Verified 12/19/24 21:12 PEELED codeine Allergy Unknown VOMITING Verified 12/19/24 21:12 Vital Signs Vital Signs - 24 hr 12/19/24 21:47 12/19/24 21:56 12/20/24 00:15 Temperature 98.1 F Pulse Rate 63 64 Respiratory Rate 16 Blood Pressure 152/41 H Pulse Oximetry 95 92 Oxygen Delivery Nasal Cannula Oxygen Flow Rate 2 12/20/24 00:15 12/20/24 00:15 12/20/24 02:20 Temperature Pulse Rate 59 L 52 L Respiratory Rate 15 18 Blood Pressure 162/48 H 168/49 H Pulse Oximetry 98 98 98 Oxygen Delivery Room Air Oxygen Flow Rate 12/20/24 03:43 12/20/24 04:25 12/20/24 04:25 Temperature Pulse Rate 55 L 54 L Respiratory Rate 15 Blood Pressure 158/54 H Pulse Oximetry 98 97 Oxygen Delivery Nasal Cannula Oxygen Flow Rate 2 12/20/24 05:00 12/20/24 08:00 12/20/24 08:28 Temperature 97.5 F L Pulse Rate 62 57 L 57 L Respiratory Rate 18 18 Blood Pressure 155/57 H Pulse Oximetry 97 97 Oxygen Delivery Nasal Cannula Oxygen Flow Rate 2 Exam Narrative: pt is drowsy bit opens eyes and appropriate Const: General: comfortable Resp: Effort & Inspection: normal respiratory effort Cardio: Rate: regular rate Rhythm: regular rhythm GI: GI Palp: Yes Soft to palpation Auscultation: normal bowel sounds Psych: Affect: Anxious affect present H&P: Results Labs Labs: Short CBC 12/19/24 Range/Units 22:00 WBC 8.2 (4.5-10.0) K/mm3 Hgb 12.6 (12.0-15.0) g/dL Hct 40.1 (37.0-47.0) % Plt Count 244 (150-375) k/mm3 BMP 12/19/24 22:30 Sodium 130 L Potassium 4.9 Chloride 93 L Carbon Dioxide 29 BUN 7 Creatinine 0.68 L Glucose 117 H Calcium 9.8 Cardiac Enzymes 12/19/24 12/20/24 12/20/24 Range/Units 22:30 01:31 04:37 Troponin I < 0.012 < 0.012 < 0.012 (0.000-0.034) ng/mL Liver Function 12/19/24 Range/Units 22:30 Total Bilirubin 0.8 (0.2-1.3) mg/dL AST 14 (14-36) U/L ALT 6 (6-35) U/L Alkaline Phosphatase 114 (38-126) U/L Albumin 3.7 (3.5-5.1) g/dL Urine 12/20/24 Range/Units 02:09 Urine Color Yellow (Yellow) Urine Appearance Clear (Clear) Urine pH 7.0 (5.0-9.0) Ur Specific [place] 1.006 (1.001-1.035) Urine Protein 1+ H (Negative) mg/dL Urine Glucose (UA) Negative (Negative) mg/dL Assessment and Plan Assessment and plan (1) Acute on chronic heart failure with preserved ejection fraction (HFpEF): Code(s): I50.33 - Acute on chronic diastolic (congestive) heart failure Status: Acute Assessment and Plan: cardiology consulted notes reviewed: 1. Continue IV Lasix 40mg BID. Please monitor strict I/Os. 2. Continue Coreg, Spironolactone. 3. Continue ASA 81mg once daily. Does not appear she is taking a statin at home. Recommend statin. 4. Obtain echo (2) Hypothyroid: Code(s): E03.9 - Hypothyroidism, unspecified Status: Acute Assessment and Plan: will restart med but will check TSH as not sure when last follow up was (3) Hyperlipemia: Code(s): E78.5 - Hyperlipidemia, unspecified Status: Acute Assessment and Plan: will restart home meds once med list is compelted Quality VTE Prophylaxis VTE prophylaxis: pharmacologic ordered
[2024-12-20] MEDS: PERFLUTREN LIPID MICROSPHERES 1.5 ML VIAL DILUTED TO 10 ML TOTAL VOLUME IV PUSH (11:50)
--- NOTE | 2024-12-20 12:01 | IVDEFINITY ---
Prior to administration of IV Definity the patient was educated on the risks and benefits of the imaging enhancing agent including potential adverse side effects. The patient verbalized understanding. Allergies were verified. No exclusion criteria were identified and at least one of the following inclusion criteria were met: 1) physician request, 2) patient technically difficult to image (per the [place] [employer] guidelines of two or more segments not discernable within the apical view), or 3) questionable left ventricular function. ?
[2024-12-20] MEDS: ENOXAPARIN 40 MG/0.4 ML SYRINGE SUB-Q (13:01)
[2024-12-20] MEDS: hydrOXYzine HCL 25 MG TABLET 50 MG PO ×2 (15:33→21:47)
[2024-12-20] MEDS: carvediloL 3.125 MG TABLET PO (21:47)
[2024-12-20] MEDS: GABAPENTIN 100 MG CAPSULE PO (21:47)
[2024-12-21] VITALS (12 sets, daily range): BP systolic 110–164; BP diastolic 46–50; PULSE 49–68; RESP 16–20; TEMP 36.1–36.7; O2SAT 94–97
[2024-12-21] MEDS: LEVOTHYROXINE SODIUM 100 MCG TABLET PO (05:50)
[2024-12-21] MEDS: LEVOTHYROXINE SODIUM 75 MCG TABLET PO (05:50)
[2024-12-21 06:40] LABS: Hemoglobin 12.1 g/dL (12.0-15.0); Mean Corpuscular HGB Conc 30.3 g/dl (32-36); Mean Corpuscular Hemoglobin 24.7 pg (26-34); Mean Corpuscular Volume 81.6 fl (80-100); Mean Platelet Volume 9.7 fl (7.4-10.4); Platelet Count Result 244 k/mm3 (150-375); Red Cell Distribution Width 18.6 % (11.5-14.5); White Blood Count 6.8 K/mm3 (4.5-10.0)
[2024-12-21 06:52] LABS: Anion Gap 8 mmol/L (4-12); Blood Urea Nitrogen 12 mg/dL (7-17); Calcium 9.1 mg/dL (8.4-10.2); Carbon Dioxide 34 mmol/L (22-30); Chloride 91 mmol/L (98-107); Estimated CRCL calculation 67 ml/min; Estimated Glomerular Filt Rate > 60; Glucose 73 mg/dL (65-110); Potassium 4.3 mmol/L (3.4-5.0); Sodium 133 mmol/L (137-145)
[2024-12-21] MEDS: SPIRONOLACTONE 50 MG TABLET 100 MG PO (08:31)
[2024-12-21] MEDS: ENOXAPARIN 40 MG/0.4 ML SYRINGE SUB-Q (08:31)
[2024-12-21] MEDS: ASPIRIN 81 MG ENTERIC TABLET PO (08:31)
[2024-12-21] MEDS: GABAPENTIN 100 MG CAPSULE PO ×2 (08:31→20:54)
[2024-12-21] MEDS: carvediloL 3.125 MG TABLET PO ×2 (08:32→20:54)
[2024-12-21 10:47] LABS: Free T4 Free Thyroxine Reflex 1.24 ng/dL (0.78-2.19)
[2024-12-21 11:43] LABS: Total Triiodothyronine (T3) 0.86 NG/ML (0.97-1.69)
[2024-12-21] MEDS: FUROSEMIDE INJ 40 MG/4 ML VIAL IV PUSH ×2 (13:01→20:55)
--- NOTE | 2024-12-21 14:09 | PM.PNCARD ---
Progress Note: A&P Assessment and Plan (1) Acute on chronic heart failure with preserved ejection fraction (HFpEF): Code(s): I50.33 - Acute on chronic diastolic (congestive) heart failure Status: Acute Plan 1. Acute on chronic heart failure with preserved LVEF of 60-65% per [facility] 12/20/2024 2. Non-obstructive CAD per [facility] January 2023 3. Hypertension 4. Hyperlipidemia 5. Hypothyroidism 6. Hyponatremia. Has had issues with hyponatremia in the past due to excessive fluid intake in the form of caffeinated sweet tea PLAN: 1. Continue IV Lasix 40mg BID. Please monitor strict I/Os. 2. Continue Coreg, Spironolactone. 3. Continue ASA 81mg once daily. Does not appear she is taking a statin at home, will start statin 4. Will start Jardiance 10mg once daily. She had previously been seeing Dr. Bai, however, our office no longer accepts her insurance and therefore, we have not seen her in some time now. If she is not already established with a commercial pilot as an outpatient, she will need to establish care with one that is within her insurance network after hospital discharge. Subjective Date/time seen: 12/21/24 14:09 Interval history: Reason for visit: Acute on chronic HFpEF HPI: We are consulted for CHF. Karlie is a 54 year old female with a history of heart failure with mildly reduced LVEF of 45% that had subsequently improved to 61%, hypertension, hyperlipidemia, hypothyroidism. She had previously been seeing Dr. Bai, however, our office no longer accepts her insurance and therefore, we have not seen her in some time now. [facility] 01/2023 showed non-obstructive CAD. History is difficult to obtain from the patient as she keeps falling asleep easily during my examination (she was given Ativan this morning). States she came to the hospital because she was feeling bad. Cannot tell me if she has been seeing a commercial pilot recently. Reports lower extremity edema that has been ongoing for a year now according to patient. Workup shows negative troponins x 3. NT pro BNP of 3240. CXR with mild interstitial edema. EKG with sinus rhythm, poor R-wave progression. No prior EKG in our [facility] system. She has been started on IV Lasix. Date of service 12/21: More awake today, but still sleeping when I walked into room and falls asleep after conversing somewhat. Denies shortness of breath at rest. Diuresing. Review of Systems Cardiovascular: Cardiovascular: Reports as per HPI Exam Const: General: no acute distress Other: Sleepy HENMT: Mouth: Yes moist mucous membranes Eyes: Sclera: sclerae normal Resp: Effort & Inspection: normal respiratory effort Auscultation: clear to auscultation bilaterally Other: On supplemental oxygen Cardio: Rate: regular rate Rhythm: regular rhythm Heart sounds: no murmurs Other: + Bilateral lower extremity edema Neuro: Speech: normal speech Psych: Mental Status: mental status grossly normal Objective Data Vital Signs Vital Signs: Vital Signs - 24 hr 12/20/24 16:00 12/20/24 19:55 12/20/24 20:00 Temperature 36.7 C Pulse Rate 63 52 L Respiratory Rate 20 Blood Pressure 123/40 L Pulse Oximetry 94 97 Oxygen Delivery Nasal Cannula Oxygen Flow Rate 2 12/20/24 20:00 12/20/24 21:47 12/21/24 00:00 Temperature Pulse Rate 53 L 58 L 49 L Respiratory Rate Blood Pressure Pulse Oximetry Oxygen Delivery Oxygen Flow Rate 12/21/24 04:00 12/21/24 04:18 12/21/24 08:00 Temperature 36.7 C Pulse Rate 52 L 56 L 54 L Respiratory Rate 20 Blood Pressure 149/49 H Pulse Oximetry 96 Oxygen Delivery Oxygen Flow Rate 12/21/24 08:32 12/21/24 10:57 Temperature Pulse Rate 57 L Respiratory Rate Blood Pressure Pulse Oximetry 95 Oxygen Delivery Nasal Cannula Oxygen Flow Rate 2 Intake/Output Intake/Output: Intake & Output 12/18/24 12/19/24 12/20/24 12/21/24 23:59 23:59 23:59 23:59 Intake Total 550 490 Output Total 1800 700 Balance -1250 -210 Meds/Results Medications: Active Medications Generic Name Dose Route Start Last Admin Trade Name Freq PRN Reason Stop Dose Admin Albuterol 2 puff 12/20/24 07:54 Albuterol Sulfate (*Sp) Aerosol 1 Puff INHALATION QID PRN sob Aspirin 81 mg 12/20/24 09:00 12/21/24 08:31 Aspirin 81 Mg Enteric Tablet PO 81 mg DAILY MEGAN Administration Carvedilol 3.125 mg 12/20/24 09:00 12/21/24 08:32 Carvedilol 3.125 Mg Tablet PO 3.125 mg Q12HR MEGAN Administration Enoxaparin Sodium 40 mg 12/20/24 11:25 12/21/24 08:31 Enoxaparin 40 Mg/0.4 Ml Syringe SUB-Q 40 mg DAILY MEGAN Administration Furosemide 40 mg 12/20/24 09:00 12/21/24 13:01 Furosemide Inj 40 Mg/4 Ml Vial IV PUSH 40 mg Q12HR MEGAN Administration Gabapentin 100 mg 12/20/24 09:00 12/21/24 08:31 Gabapentin 100 Mg Capsule PO 100 mg Q12HR MEGAN Administration Hydroxyzine HCl 50 mg 12/20/24 07:53 12/20/24 21:47 Hydroxyzine Hcl 25 Mg Tablet PO 50 mg Q6H PRN Administration anxiety Levothyroxine Sodium 75 mcg 12/20/24 08:05 12/21/24 05:50 Levothyroxine Sodium 75 Mcg Tablet PO 75 mcg DAILY@0630 MEGAN Administration Levothyroxine Sodium 100 mcg 12/20/24 06:30 12/21/24 05:50 Levothyroxine Sodium 100 Mcg Tablet PO 100 mcg DAILY@0630 MEGAN Administration Lorazepam 0.5 mg 12/20/24 07:45 12/20/24 08:24 Lorazepam Inj (*Crx) 2 Mg/Ml Vial IV PUSH 0.5 mg Q6H PRN Administration Anxiety Perflutren Lipid Microsphere 0 ml 12/20/24 10:11 Perflutren Lipid Microspheres 1.5 Ml Vial Diluted To 10 Ml Total Volume IV PUSH 12/23/24 10:11 ONCE PRN adequate visualization Protocol Spironolactone 100 mg 12/20/24 09:00 12/21/24 08:31 Spironolactone 50 Mg Tablet PO 100 mg DAILY MEGAN Administration Radiology Results: ITS Impressions Chest X-Ray 12/19/24 22:17 IMPRESSION: Mild interstitial edema. Head CT 12/20/24 06:37 IMPRESSION: 1. No acute intracranial abnormality. Labs Labs: Laboratory Results - last 24 hr 12/21/24 06:01 WBC 6.8 RBC 4.90 Hgb 12.1 Hct 40.0 MCV 81.6 MCH 24.7 L MCHC 30.3 L RDW 18.6 H Plt Count 244 MPV 9.7 Sodium 133 L Potassium 4.3 Chloride 91 L Carbon Dioxide 34 H Anion Gap 8 BUN 12 D Creatinine 0.89 Estim Creat Clear Calc 67 Estimated GFR > 60 Glucose 73 Calcium 9.1 TSH (Reflex) 13.100 H Free T4 1.24 Total T3 0.86 L
[2024-12-21] MEDS: EMPAGLIFLOZIN 10 MG TABLET PO (15:29)
--- NOTE | 2024-12-21 15:30 | P.PNIM_ITS ---
Progress Note: A&P Assessment and Plan (1) Acute on chronic heart failure with preserved ejection fraction (HFpEF): Code(s): I50.33 - Acute on chronic diastolic (congestive) heart failure Status: Acute Assessment and Plan: cardiology consulted notes reviewed: 1. Continue IV Lasix 40mg BID. Please monitor strict I/Os. 2. Continue Coreg, Spironolactone. 3. Continue ASA 81mg once daily. Does not appear she is taking a statin at home. Recommend statin. 4. Obtain echo (2) Hypothyroid: Code(s): E03.9 - Hypothyroidism, unspecified Status: Acute Assessment and Plan: will restart med but will check TSH as not sure when last follow up was (3) Hyperlipemia: Code(s): E78.5 - Hyperlipidemia, unspecified Status: Acute Assessment and Plan: will restart home meds once med list is compelted Plan avoid lorazepam try hydroxyzine Time Spent With Patient Time with patient: 25 - 35 minutes Subjective Date/time seen: 12/21/24 15:30 Interval history: 54 year old female with a history of heart failure with mildly reduced LVEF of 45% that had subsequently improved to 61%, hypertension, hyperlipidemia, hypothyroidism. LHC 01/2023 showed non-obstructive CAD. Cardiology was consulted and following with pt. Had been issues with pt compliance with meds. I had to talk to pt about not re fusing her lasix. She is agreeable to em but not so compliant with nurses. Avoid lorazepam. Review of Systems Review of Systems: drowsy but wakes up and answers questions Constitutional: Constitutional: Denies chills Cardiovascular: Cardiovascular: Denies chest pain and Reports leg edema Psychiatric: Psychiatric: Reports anxiety Exam Const: General: comfortable Resp: Effort & Inspection: normal respiratory effort Cardio: Rate: regular rate Rhythm: regular rhythm GI: Auscultation: normal bowel sounds Psych: Affect: Anxious affect present Objective Data Vital Signs Vital Signs: Vital Signs - 24 hr 12/20/24 16:00 12/20/24 19:55 12/20/24 20:00 Temperature 98.0 F Pulse Rate 63 52 L Respiratory Rate 20 Blood Pressure 123/40 L Pulse Oximetry 94 97 Oxygen Delivery Nasal Cannula Oxygen Flow Rate 2 12/20/24 20:00 12/20/24 21:47 12/21/24 00:00 Temperature Pulse Rate 53 L 58 L 49 L Respiratory Rate Blood Pressure Pulse Oximetry Oxygen Delivery Oxygen Flow Rate 12/21/24 04:00 12/21/24 04:18 12/21/24 08:00 Temperature 98.0 F Pulse Rate 52 L 56 L 54 L Respiratory Rate 20 Blood Pressure 149/49 H Pulse Oximetry 96 Oxygen Delivery Oxygen Flow Rate 12/21/24 08:32 12/21/24 10:57 12/21/24 12:00 Temperature Pulse Rate 57 L 51 L Respiratory Rate Blood Pressure Pulse Oximetry 95 Oxygen Delivery Nasal Cannula Oxygen Flow Rate 2 12/21/24 14:29 Temperature 97.0 F L Pulse Rate 58 L Respiratory Rate 16 Blood Pressure 110/46 L Pulse Oximetry 97 Oxygen Delivery Oxygen Flow Rate Intake/Output Intake/Output: Intake & Output 12/18/24 12/19/24 12/20/24 12/21/24 23:59 23:59 23:59 23:59 Intake Total 550 730 Output Total 1800 1500 Balance -1250 -770 Meds/Results Medications: Active Medications Generic Name Dose Route Start Last Admin Trade Name Freq PRN Reason Stop Dose Admin Albuterol 2 puff 12/20/24 07:54 Albuterol Sulfate (*Sp) Aerosol 1 Puff INHALATION QID PRN sob Aspirin 81 mg 12/20/24 09:00 12/21/24 08:31 Aspirin 81 Mg Enteric Tablet PO 81 mg DAILY MEGAN Administration Atorvastatin Calcium 40 mg 12/22/24 09:00 Atorvastatin 40 Mg Tablet PO DAILY MEGAN Carvedilol 3.125 mg 12/20/24 09:00 12/21/24 08:32 Carvedilol 3.125 Mg Tablet PO 3.125 mg Q12HR MEGAN Administration Empagliflozin 10 mg 12/21/24 14:15 12/21/24 15:29 Empagliflozin 10 Mg Tablet PO 10 mg DAILY MEGAN Administration Enoxaparin Sodium 40 mg 12/20/24 11:25 12/21/24 08:31 Enoxaparin 40 Mg/0.4 Ml Syringe SUB-Q 40 mg DAILY MEGAN Administration Furosemide 40 mg 12/20/24 09:00 12/21/24 13:01 Furosemide Inj 40 Mg/4 Ml Vial IV PUSH 40 mg Q12HR MEGAN Administration Gabapentin 100 mg 12/20/24 09:00 12/21/24 08:31 Gabapentin 100 Mg Capsule PO 100 mg Q12HR MEGAN Administration Hydroxyzine HCl 50 mg 12/20/24 07:53 12/20/24 21:47 Hydroxyzine Hcl 25 Mg Tablet PO 50 mg Q6H PRN Administration anxiety Levothyroxine Sodium 75 mcg 12/20/24 08:05 12/21/24 05:50 Levothyroxine Sodium 75 Mcg Tablet PO 75 mcg DAILY@0630 MEGAN Administration Levothyroxine Sodium 100 mcg 12/20/24 06:30 12/21/24 05:50 Levothyroxine Sodium 100 Mcg Tablet PO 100 mcg DAILY@0630 MEGAN Administration Lorazepam 0.5 mg 12/20/24 07:45 12/20/24 08:24 Lorazepam Inj (*Crx) 2 Mg/Ml Vial IV PUSH 0.5 mg Q6H PRN Administration Anxiety Perflutren Lipid Microsphere 0 ml 12/20/24 10:11 Perflutren Lipid Microspheres 1.5 Ml Vial Diluted To 10 Ml Total Volume IV PUSH 12/23/24 10:11 ONCE PRN adequate visualization Protocol Spironolactone 100 mg 12/20/24 09:00 12/21/24 08:31 Spironolactone 50 Mg Tablet PO 100 mg DAILY MEGAN Administration Radiology Results: ITS Impressions Chest X-Ray 12/19/24 22:17 IMPRESSION: Mild interstitial edema. Head CT 12/20/24 06:37 IMPRESSION: 1. No acute intracranial abnormality. Labs Labs: Laboratory Results - last 24 hr 12/21/24 06:01 WBC 6.8 RBC 4.90 Hgb 12.1 Hct 40.0 MCV 81.6 MCH 24.7 L MCHC 30.3 L RDW 18.6 H Plt Count 244 MPV 9.7 Sodium 133 L Potassium 4.3 Chloride 91 L Carbon Dioxide 34 H Anion Gap 8 BUN 12 D Creatinine 0.89 Estim Creat Clear Calc 67 Estimated GFR > 60 Glucose 73 Calcium 9.1 TSH (Reflex) 13.100 H Free T4 1.24 Total T3 0.86 L Quality VTE Prophylaxis VTE prophylaxis: pharmacologic ordered
[2024-12-22] VITALS (12 sets, daily range): BP systolic 152–160; BP diastolic 40–50; PULSE 50–75; RESP 17–20; TEMP 36.1–36.4; O2SAT 93–97
[2024-12-22] MEDS: LEVOTHYROXINE SODIUM 100 MCG TABLET PO (06:03)
[2024-12-22] MEDS: LEVOTHYROXINE SODIUM 75 MCG TABLET PO (06:04)
[2024-12-22 06:35] LABS: Hematocrit 38.4 % (37.0-47.0); Hemoglobin 11.8 g/dL (12.0-15.0); Mean Corpuscular HGB Conc 30.7 g/dl (32-36); Mean Corpuscular Hemoglobin 24.6 pg (26-34); Mean Corpuscular Volume 80.2 fl (80-100); Mean Platelet Volume 8.8 fl (7.4-10.4); Platelet Count Result 232 k/mm3 (150-375); Red Blood Count 4.79 M/mm3 (4.2-5.4); Red Cell Distribution Width 18.5 % (11.5-14.5); White Blood Count 7.5 K/mm3 (4.5-10.0)
[2024-12-22 07:29] LABS: Anion Gap 6 mmol/L (4-12); Blood Urea Nitrogen 14 mg/dL (7-17); Calcium 9.1 mg/dL (8.4-10.2); Carbon Dioxide 35 mmol/L (22-30); Chloride 93 mmol/L (98-107); Estimated CRCL calculation 69 ml/min; Estimated Glomerular Filt Rate > 60; Glucose 79 mg/dL (65-110); Potassium 4.3 mmol/L (3.4-5.0); Sodium 134 mmol/L (137-145)
[2024-12-22] MEDS: SPIRONOLACTONE 50 MG TABLET 100 MG PO (08:45)
[2024-12-22] MEDS: GABAPENTIN 100 MG CAPSULE PO ×2 (08:46→20:02)
[2024-12-22] MEDS: ASPIRIN 81 MG ENTERIC TABLET PO (08:46)
[2024-12-22] MEDS: ATORVASTATIN 40 MG TABLET PO (08:46)
[2024-12-22] MEDS: EMPAGLIFLOZIN 10 MG TABLET PO (08:46)
[2024-12-22] MEDS: ENOXAPARIN 40 MG/0.4 ML SYRINGE SUB-Q (08:48)
[2024-12-22] MEDS: FUROSEMIDE INJ 40 MG/4 ML VIAL IV PUSH (08:49)
--- NOTE | 2024-12-22 13:03 | PM.IMPN ---
Progress Note: A&P Assessment and Plan (1) Acute on chronic heart failure with preserved ejection fraction (HFpEF): Code(s): I50.33 - Acute on chronic diastolic (congestive) heart failure Status: Acute Assessment and Plan: cardiology consulted notes reviewed: 1. Continue IV Lasix 40mg BID. Please monitor strict I/Os. 2. Continue Coreg, Spironolactone. 3. Continue ASA 81mg once daily. Does not appear she is taking a statin at home. Recommend statin. 4. Obtain echo - needs a lot of education and reinforcement with compliance (2) Hypothyroid: Code(s): E03.9 - Hypothyroidism, unspecified Status: Acute Assessment and Plan: will restart med but will check TSH as not sure when last follow up was (3) Hyperlipemia: Code(s): E78.5 - Hyperlipidemia, unspecified Status: Acute Assessment and Plan: will restart home meds once med list is compelted (4) Anxiety: Code(s): F41.9 - Anxiety disorder, unspecified Status: Acute Assessment and Plan: high anxiety initially required ativan- now d/alexander atrax is ordered prn deneuis suicidal ideation reports that used to f/u with psych but stopped not on any medication will add buspar 5 mg bid and monitor-will need a close f/u with pcp and psych Plan avoid lorazepam try hydroxyzine Time Spent With Patient Time with patient: 25 - 35 minutes Subjective Date/time seen: 12/22/24 13:03 Interval history: 54 year old female with a history of heart failure with mildly reduced LVEF of 45% that had subsequently improved to 61%, hypertension, hyperlipidemia, hypothyroidism. [facility] 01/2023 showed non-obstructive CAD. Cardiology was consulted and following with pt. Pt is alert today, anxious, admits noncompliance with meds. States she is trying to quit smoking but does not sound convincing. Review of Systems Review of Systems: denies discomfort, comfortable on 2l nc O2 Constitutional: Constitutional: Denies chills Cardiovascular: Cardiovascular: Denies chest pain and Reports leg edema Psychiatric: Psychiatric: Reports anxiety Exam Narrative: pt is drowsy bit opens eyes and appropriate Const: General: comfortable Resp: Effort & Inspection: normal respiratory effort Cardio: Rate: regular rate Rhythm: regular rhythm GI: Auscultation: normal bowel sounds Psych: Affect: Anxious affect present Objective Data Vital Signs Vital Signs: Vital Signs - 24 hr 12/21/24 14:29 12/21/24 16:00 12/21/24 20:00 Temperature 97.0 F L Pulse Rate 58 L 59 L Respiratory Rate 16 Blood Pressure 110/46 L Pulse Oximetry 97 94 Oxygen Delivery Nasal Cannula Oxygen Flow Rate 2 12/21/24 20:00 12/21/24 20:42 12/21/24 20:54 Temperature 97.5 F L Pulse Rate 68 58 L 57 L Respiratory Rate 20 Blood Pressure 164/50 H Pulse Oximetry 95 Oxygen Delivery Oxygen Flow Rate 12/22/24 00:00 12/22/24 04:00 12/22/24 05:26 Temperature 97.6 F Pulse Rate 59 L 75 57 L Respiratory Rate 20 Blood Pressure 152/50 H Pulse Oximetry 97 Oxygen Delivery Oxygen Flow Rate 12/22/24 08:48 Temperature Pulse Rate 50 L Respiratory Rate Blood Pressure Pulse Oximetry Oxygen Delivery Oxygen Flow Rate Intake/Output Intake/Output: Intake & Output 12/19/24 12/20/24 12/21/24 12/22/24 23:59 23:59 23:59 23:59 Intake Total 550 880 490 Output Total 1800 3600 Balance -1250 -2720 490 Meds/Results Medications: Active Medications Generic Name Dose Route Start Last Admin Trade Name Freq PRN Reason Stop Dose Admin Albuterol 2 puff 12/20/24 07:54 Albuterol Sulfate (*Sp) Aerosol 1 Puff INHALATION QID PRN sob Aspirin 81 mg 12/20/24 09:00 12/22/24 08:46 Aspirin 81 Mg Enteric Tablet PO 81 mg DAILY MEGAN Administration Atorvastatin Calcium 40 mg 12/22/24 09:00 12/22/24 08:46 Atorvastatin 40 Mg Tablet PO 40 mg DAILY MEGAN Administration Buspirone HCl 5 mg 12/22/24 12:55 Buspirone Hcl 5 Mg Tablet PO Q12HR MEGAN Carvedilol 3.125 mg 12/20/24 09:00 12/22/24 08:48 Carvedilol 3.125 Mg Tablet PO Not Given Q12HR MEGAN Empagliflozin 10 mg 12/21/24 14:15 12/22/24 08:46 Empagliflozin 10 Mg Tablet PO 10 mg DAILY MEGAN Administration Enoxaparin Sodium 40 mg 12/20/24 11:25 12/22/24 08:48 Enoxaparin 40 Mg/0.4 Ml Syringe SUB-Q 40 mg DAILY MEGAN Administration Furosemide 40 mg 12/20/24 09:00 12/22/24 08:49 Furosemide Inj 40 Mg/4 Ml Vial IV PUSH 40 mg Q12HR MEGAN Administration Gabapentin 100 mg 12/20/24 09:00 12/22/24 08:46 Gabapentin 100 Mg Capsule PO 100 mg Q12HR MEGAN Administration Hydroxyzine HCl 50 mg 12/20/24 07:53 12/20/24 21:47 Hydroxyzine Hcl 25 Mg Tablet PO 50 mg Q6H PRN Administration anxiety Levothyroxine Sodium 75 mcg 12/20/24 08:05 12/22/24 06:04 Levothyroxine Sodium 75 Mcg Tablet PO 75 mcg DAILY@0630 MEGAN Administration Levothyroxine Sodium 100 mcg 12/20/24 06:30 12/22/24 06:03 Levothyroxine Sodium 100 Mcg Tablet PO 100 mcg DAILY@0630 MEGAN Administration Perflutren Lipid Microsphere 0 ml 12/20/24 10:11 Perflutren Lipid Microspheres 1.5 Ml Vial Diluted To 10 Ml Total Volume IV PUSH 12/23/24 10:11 ONCE PRN adequate visualization Protocol Spironolactone 100 mg 12/20/24 09:00 12/22/24 08:45 Spironolactone 50 Mg Tablet PO 100 mg DAILY MEGAN Administration Radiology Results: ITS Impressions Chest X-Ray 12/19/24 22:17 IMPRESSION: Mild interstitial edema. Head CT 12/20/24 06:37 IMPRESSION: 1. No acute intracranial abnormality. Labs Labs: Laboratory Results - last 24 hr 12/22/24 06:31 WBC 7.5 RBC 4.79 Hgb 11.8 L Hct 38.4 MCV 80.2 MCH 24.6 L MCHC 30.7 L RDW 18.5 H Plt Count 232 MPV 8.8 Sodium 134 L Potassium 4.3 Chloride 93 L Carbon Dioxide 35 H Anion Gap 6 BUN 14 Creatinine 0.87 Estim Creat Clear Calc 69 Estimated GFR > 60 Glucose 79 Calcium 9.1 Quality VTE Prophylaxis VTE prophylaxis: pharmacologic ordered
[2024-12-22] MEDS: busPIRone HCL 5 MG TABLET PO (20:02)
[2024-12-22] MEDS: carvediloL 3.125 MG TABLET PO (20:03)
[2024-12-22] MEDS: hydrOXYzine HCL 25 MG TABLET 50 MG PO (20:03)
[2024-12-22] MEDS: FUROSEMIDE 40 MG TABLET PO (20:57)
--- NOTE | 2024-12-22 22:17 | PC.NURSE ---
Pt with multiple anxious complaints since start of shift. Assisted patient to the bathroom upon request to find her personal gown from home soaked with urine. Patient adamantly refusing to change gown and demanded to tie back of gown up in plastic bag and lay on it in bed. Attempted to educate patient multiple times on importance of wearing clean, dry gown but patient unwilling to cooperate.
[2024-12-23] VITALS: PULSE 60
[2024-12-23] MEDS: ACETAMINOPHEN 325 MG TABLET 650 MG PO (02:53)
[2024-12-23 04:00] VITALS: PULSE 60
[2024-12-23] MEDS: LEVOTHYROXINE SODIUM 100 MCG TABLET PO (05:35)
[2024-12-23] MEDS: LEVOTHYROXINE SODIUM 75 MCG TABLET PO (05:35)
[2024-12-23 05:58] LABS: Hematocrit 38.8 % (37.0-47.0); Mean Corpuscular HGB Conc 30.9 g/dl (32-36); Mean Corpuscular Hemoglobin 24.5 pg (26-34); Mean Corpuscular Volume 79.2 fl (80-100); Mean Platelet Volume 9.2 fl (7.4-10.4); Platelet Count Result 233 k/mm3 (150-375); Red Cell Distribution Width 18.9 % (11.5-14.5); White Blood Count 7.8 K/mm3 (4.5-10.0)
[2024-12-23 06:00] VITALS: BP 137/48; PULSE 60; RESP 20; TEMP 36.5; O2SAT 90
[2024-12-23 06:12] LABS: Anion Gap 8 mmol/L (4-12); Blood Urea Nitrogen 15 mg/dL (7-17); Carbon Dioxide 34 mmol/L (22-30); Chloride 92 mmol/L (98-107); Estimated CRCL calculation 67 ml/min; Estimated Glomerular Filt Rate > 60; Glucose 143 mg/dL (65-110); Potassium 3.5 mmol/L (3.4-5.0); Sodium 134 mmol/L (137-145)
--- NOTE | 2024-12-23 09:33 | PM.IMPN ---
Progress Note: A&P Assessment and Plan (1) Acute on chronic heart failure with preserved ejection fraction (HFpEF): Code(s): I50.33 - Acute on chronic diastolic (congestive) heart failure Status: Acute Assessment and Plan: cardiology consulted notes reviewed: 1. Continue IV Lasix 40mg BID. Please monitor strict I/Os. 2. Continue Coreg, Spironolactone. 3. Continue ASA 81mg once daily. Does not appear she is taking a statin at home. Recommend statin. 4. Obtain echo - needs a lot of education and reinforcement with compliance I/O reviewed- in 1480/out 2900 (2) Hypothyroid: Code(s): E03.9 - Hypothyroidism, unspecified Status: Acute Assessment and Plan: will restart med but will check TSH as not sure when last follow up was (3) Hyperlipemia: Code(s): E78.5 - Hyperlipidemia, unspecified Status: Acute Assessment and Plan: will restart home meds once med list is compelted (4) Anxiety: Code(s): F41.9 - Anxiety disorder, unspecified Status: Acute Assessment and Plan: high anxiety initially required ativan- now d/alexander atrax is ordered prn deneuis suicidal ideation reports that used to f/u with psych but stopped not on any medication will add buspar 5 mg bid and monitor-will need a close f/u with pcp and psych Plan avoid lorazepam try hydroxyzine Time Spent With Patient Time with patient: 25 - 35 minutes Subjective Date/time seen: 12/23/24 09:33 Interval history: 54 year old female with a history of heart failure with mildly reduced LVEF of 45% that had subsequently improved to 61%, hypertension, hyperlipidemia, hypothyroidism. LHC 01/2023 showed non-obstructive CAD. pt is seen and examined. I/O reviewed- diuresing well. Review of Systems Review of Systems: denies discomfort, comfortable on 2l nc O2 Constitutional: Constitutional: Denies chills Cardiovascular: Cardiovascular: Denies chest pain and Reports leg edema Psychiatric: Psychiatric: Reports anxiety Exam Narrative: pt is drowsy bit opens eyes and appropriate Const: General: comfortable Resp: Effort & Inspection: normal respiratory effort Cardio: Rate: regular rate Rhythm: regular rhythm GI: Auscultation: normal bowel sounds Psych: Affect: Anxious affect present Objective Data Vital Signs Vital Signs: Vital Signs - 24 hr 12/22/24 12:00 12/22/24 15:15 12/22/24 16:00 Temperature 97.3 F L Pulse Rate 56 L 60 67 Respiratory Rate 17 Blood Pressure 159/40 H Pulse Oximetry 95 Oxygen Delivery Oxygen Flow Rate 12/22/24 20:00 12/22/24 20:00 12/22/24 20:03 Temperature Pulse Rate 71 70 Respiratory Rate Blood Pressure Pulse Oximetry 95 Oxygen Delivery Nasal Cannula Oxygen Flow Rate 2 12/22/24 21:43 12/23/24 00:00 12/23/24 04:00 Temperature 97 F L Pulse Rate 68 60 60 Respiratory Rate 20 Blood Pressure 160/50 H Pulse Oximetry 93 Oxygen Delivery Oxygen Flow Rate 12/23/24 06:00 Temperature 97.7 F Pulse Rate 60 Respiratory Rate 20 Blood Pressure 137/48 L Pulse Oximetry 90 Oxygen Delivery Oxygen Flow Rate Intake/Output Intake/Output: Intake & Output 12/20/24 12/21/24 12/22/24 12/23/24 23:59 23:59 23:59 23:59 Intake Total 239 711 8331 450 Output Total 1800 3600 1500 1400 Balance -1250 -2720 -220 -950 Meds/Results Medications: Active Medications Generic Name Dose Route Start Last Admin Trade Name Freq PRN Reason Stop Dose Admin Albuterol 2 puff 12/20/24 07:54 Albuterol Sulfate (*Sp) Aerosol 1 Puff INHALATION QID PRN sob Aspirin 81 mg 12/20/24 09:00 12/22/24 08:46 Aspirin 81 Mg Enteric Tablet PO 81 mg DAILY MEGAN Administration Atorvastatin Calcium 40 mg 12/22/24 09:00 12/22/24 08:46 Atorvastatin 40 Mg Tablet PO 40 mg DAILY MEGAN Administration Buspirone HCl 5 mg 12/22/24 12:55 12/22/24 20:02 Buspirone Hcl 5 Mg Tablet PO 5 mg Q12HR MEGAN Administration Carvedilol 3.125 mg 12/20/24 09:00 12/22/24 20:03 Carvedilol 3.125 Mg Tablet PO 3.125 mg Q12HR MEGAN Administration Empagliflozin 10 mg 12/21/24 14:15 12/22/24 08:46 Empagliflozin 10 Mg Tablet PO 10 mg DAILY MEGAN Administration Enoxaparin Sodium 40 mg 12/20/24 11:25 12/22/24 08:48 Enoxaparin 40 Mg/0.4 Ml Syringe SUB-Q 40 mg DAILY MEGAN Administration Furosemide 40 mg 12/20/24 09:00 12/22/24 20:21 Furosemide Inj 40 Mg/4 Ml Vial IV PUSH Not Given Q12HR MEGAN Gabapentin 100 mg 12/20/24 09:00 12/22/24 20:02 Gabapentin 100 Mg Capsule PO 100 mg Q12HR MEGAN Administration Hydroxyzine HCl 50 mg 12/20/24 07:53 12/22/24 20:03 Hydroxyzine Hcl 25 Mg Tablet PO 50 mg Q6H PRN Administration anxiety Levothyroxine Sodium 75 mcg 12/20/24 08:05 12/23/24 05:35 Levothyroxine Sodium 75 Mcg Tablet PO 75 mcg DAILY@0630 MEGAN Administration Levothyroxine Sodium 100 mcg 12/20/24 06:30 12/23/24 05:35 Levothyroxine Sodium 100 Mcg Tablet PO 100 mcg DAILY@0630 MEGAN Administration Perflutren Lipid Microsphere 0 ml 12/20/24 10:11 Perflutren Lipid Microspheres 1.5 Ml Vial Diluted To 10 Ml Total Volume IV PUSH 12/23/24 10:11 ONCE PRN adequate visualization Protocol Spironolactone 100 mg 12/20/24 09:00 12/22/24 08:45 Spironolactone 50 Mg Tablet PO 100 mg DAILY MEGAN Administration Radiology Results: ITS Impressions Chest X-Ray 12/19/24 22:17 IMPRESSION: Mild interstitial edema. Head CT 12/20/24 06:37 IMPRESSION: 1. No acute intracranial abnormality. Labs Labs: Laboratory Results - last 24 hr 12/23/24 05:34 WBC 7.8 RBC 4.90 Hgb 12.0 Hct 38.8 MCV 79.2 L MCH 24.5 L MCHC 30.9 L RDW 18.9 H Plt Count 233 MPV 9.2 Sodium 134 L Potassium 3.5 Chloride 92 L Carbon Dioxide 34 H Anion Gap 8 BUN 15 Creatinine 0.89 Estim Creat Clear Calc 67 Estimated GFR > 60 Glucose 143 H Calcium 9.0 Quality VTE Prophylaxis VTE prophylaxis: pharmacologic ordered
[2024-12-23 09:44] VITALS: PULSE 66
[2024-12-23] MEDS: carvediloL 3.125 MG TABLET PO (09:44)
[2024-12-23] MEDS: ENOXAPARIN 40 MG/0.4 ML SYRINGE SUB-Q (09:44)
[2024-12-23] MEDS: ATORVASTATIN 40 MG TABLET PO (09:44)
[2024-12-23 09:45] VITALS: PULSE 52; O2SAT 100
[2024-12-23] MEDS: busPIRone HCL 5 MG TABLET PO (09:45)
[2024-12-23] MEDS: EMPAGLIFLOZIN 10 MG TABLET PO (09:45)
[2024-12-23] MEDS: GABAPENTIN 100 MG CAPSULE PO (09:45)
[2024-12-23] MEDS: SPIRONOLACTONE 50 MG TABLET 100 MG PO (09:45)
[2024-12-23] MEDS: ASPIRIN 81 MG ENTERIC TABLET PO (09:46)
[2024-12-23 14:00] VITALS: BP 148/45; PULSE 52; RESP 16; TEMP 36.7; O2SAT 100
--- NOTE | 2024-12-23 14:57 | PM.PNCARD ---
Progress Note: A&P Assessment and Plan (1) Acute on chronic heart failure with preserved ejection fraction (HFpEF): Code(s): I50.33 - Acute on chronic diastolic (congestive) heart failure Status: Acute (2) Hyperlipemia: Code(s): E78.5 - Hyperlipidemia, unspecified Status: Acute (3) Coronary artery disease: Code(s): I25.10 - Atherosclerotic heart disease of [place] coronary artery without angina pectoris Status: Acute Plan 54-year-old woman with chronic systolic heart failure (LVEF 45% improved to 61%), hypertension, hyperlipidemia, and hypothyroidism initially presented admitted for volume overload presumably secondary to acute on chronic heart failure Acute on chronic systolic heart failure (LVEF improved to 61%) -she is status post IV diuretics and was supposed to be continuing IV diuretics today however took out her own peripheral IV access lines -she can be discharged on oral Lasix 40 mg p.o. BID for 5 days -continue carvedilol 3.125 mg every 12 hours, spironolactone 100 mg p.o. daily, and Jardiance 10 mg p.o. daily -overall it appears she is close to being euvolemic Nonobstructive CAD -continue aspirin 81 mg p.o. daily Hypertension -currently on spironolactone 100 mg p.o. daily Hyperlipidemia -continue atorvastatin 40 mg every evening She can follow-up with Dr. Acosta outpatient from a Cardiology perspective. She is on a rather high dose of spironolactone and should have a repeat BMP in 2 weeks to ensure her potassium levels are not rising too high Subjective Date/time seen: 12/23/24 14:57 Interval history: Denies any shortness of breath or chest discomfort. No significant orthopnea. Has some mild lower extremity swelling. Review of Systems Cardiovascular: Cardiovascular: Reports as per HPI Respiratory: Respiratory: Reports as per HPI Exam Const: General: comfortable HENMT: Mouth: Yes moist mucous membranes Eyes: EOM: EOMs intact bilaterally Neck: Neck: no JVD Resp: Effort & Inspection: normal respiratory effort Auscultation: clear to auscultation bilaterally Cardio: Rate: regular rate Rhythm: regular rhythm GI: GI Palp: Yes Soft to palpation Extrem: General: pedal edema Objective Data Vital Signs Vital Signs: Vital Signs - 24 hr 12/22/24 15:15 12/22/24 16:00 12/22/24 20:00 Temperature 36.3 C L Pulse Rate 60 67 Respiratory Rate 17 Blood Pressure 159/40 H Pulse Oximetry 95 95 Oxygen Delivery Nasal Cannula Oxygen Flow Rate 2 12/22/24 20:00 12/22/24 20:03 12/22/24 21:43 Temperature 36.1 C L Pulse Rate 71 70 68 Respiratory Rate 20 Blood Pressure 160/50 H Pulse Oximetry 93 Oxygen Delivery Oxygen Flow Rate 12/23/24 00:00 12/23/24 04:00 12/23/24 06:00 Temperature 36.5 C Pulse Rate 60 60 60 Respiratory Rate 20 Blood Pressure 137/48 L Pulse Oximetry 90 Oxygen Delivery Oxygen Flow Rate 12/23/24 09:44 Temperature Pulse Rate 66 Respiratory Rate Blood Pressure Pulse Oximetry Oxygen Delivery Oxygen Flow Rate Intake/Output Intake/Output: Intake & Output 12/20/24 12/21/24 12/22/24 12/23/24 23:59 23:59 23:59 23:59 Intake Total 953 854 6342 690 Output Total 1800 3600 1500 1400 [facility] -1250 -2720 -220 -710 Meds/Results Medications: Active Medications Generic Name Dose Route Start Last Admin Trade Name Freq PRN Reason Stop Dose Admin Albuterol 2 puff 12/20/24 07:54 Albuterol Sulfate (*Sp) Aerosol 1 Puff INHALATION QID PRN sob Aspirin 81 mg 12/20/24 09:00 12/23/24 09:46 Aspirin 81 Mg Enteric Tablet PO 81 mg DAILY MEGAN Administration Atorvastatin Calcium 40 mg 12/22/24 09:00 12/23/24 09:44 Atorvastatin 40 Mg Tablet PO 40 mg DAILY MEGAN Administration Buspirone HCl 5 mg 12/22/24 12:55 12/23/24 09:45 Buspirone Hcl 5 Mg Tablet PO 5 mg Q12HR MEGAN Administration Carvedilol 3.125 mg 12/20/24 09:00 12/23/24 09:44 Carvedilol 3.125 Mg Tablet PO 3.125 mg Q12HR MEGAN Administration Empagliflozin 10 mg 12/21/24 14:15 12/23/24 09:45 Empagliflozin 10 Mg Tablet PO 10 mg DAILY MEGAN Administration Enoxaparin Sodium 40 mg 12/20/24 11:25 12/23/24 09:44 Enoxaparin 40 Mg/0.4 Ml Syringe SUB-Q 40 mg DAILY MEGAN Administration Furosemide 40 mg 12/23/24 17:00 Furosemide 40 Mg Tablet PO BID MEGAN Gabapentin 100 mg 12/20/24 09:00 12/23/24 09:45 Gabapentin 100 Mg Capsule PO 100 mg Q12HR MEGAN Administration Hydroxyzine HCl 50 mg 12/20/24 07:53 12/22/24 20:03 Hydroxyzine Hcl 25 Mg Tablet PO 50 mg Q6H PRN Administration anxiety Levothyroxine Sodium 75 mcg 12/20/24 08:05 12/23/24 05:35 Levothyroxine Sodium 75 Mcg Tablet PO 75 mcg DAILY@0630 MEGAN Administration Levothyroxine Sodium 100 mcg 12/20/24 06:30 12/23/24 05:35 Levothyroxine Sodium 100 Mcg Tablet PO 100 mcg DAILY@0630 MEGAN Administration Spironolactone 100 mg 12/20/24 09:00 12/23/24 09:45 Spironolactone 50 Mg Tablet PO 100 mg DAILY MEGAN Administration Radiology Results: ITS Impressions Chest X-Ray 12/19/24 22:17 IMPRESSION: Mild interstitial edema. Head CT 12/20/24 06:37 IMPRESSION: 1. No acute intracranial abnormality. Labs Labs: Laboratory Results - last 24 hr 12/23/24 05:34 WBC 7.8 RBC 4.90 Hgb 12.0 Hct 38.8 MCV 79.2 L MCH 24.5 L MCHC 30.9 L RDW 18.9 H Plt Count 233 MPV 9.2 Sodium 134 L Potassium 3.5 Chloride 92 L Carbon Dioxide 34 H Anion Gap 8 BUN 15 Creatinine 0.89 Estim Creat Clear Calc 67 Estimated GFR > 60 Glucose 143 H Calcium 9.0
--- NOTE | 2024-12-23 15:28 | PM.DS ---
DS: Admitting Diagnosis Discharge Date 12/23 Admitting Diagnosis chest pain DS: Discharge Diagnosis Discharge Diagnosis (1) Acute on chronic heart failure with preserved ejection fraction (HFpEF): Code(s): I50.33 - Acute on chronic diastolic (congestive) heart failure Status: Acute Assessment and Plan: cardiology consulted notes reviewed: 1. Continue IV Lasix 40mg BID. Please monitor strict I/Os. 2. Continue Coreg, Spironolactone. 3. Continue ASA 81mg once daily. Does not appear she is taking a statin at home. Recommend statin. 4. Obtain echo - needs a lot of education and reinforcement with compliance I/O reviewed- in 1480/out 2900 (2) Hypothyroid: Code(s): E03.9 - Hypothyroidism, unspecified Status: Acute Assessment and Plan: will restart med but will check TSH as not sure when last follow up was (3) Hyperlipemia: Code(s): E78.5 - Hyperlipidemia, unspecified Status: Acute Assessment and Plan: will restart home meds once med list is compelted (4) Anxiety: Code(s): F41.9 - Anxiety disorder, unspecified Status: Acute Assessment and Plan: high anxiety initially required ativan- now d/alexander atrax is ordered prn deneuis suicidal ideation reports that used to f/u with psych but stopped not on any medication will add buspar 5 mg bid and monitor-will need a close f/u with pcp and psych Plan avoid lorazepam try hydroxyzine DS: Summary Hospital Course Hospital Course: 54 year old female with a history of heart failure with mildly reduced LVEF of 45% that had subsequently improved to 61%, hypertension, hyperlipidemia, hypothyroidism. LHC 01/2023 showed non-obstructive CAD. Pt has very high level of anxiety and required IV meds initially. Unable to assess if she was ever seen per psych or treated with any meds. We started her on buspar and she took one but refused another. I will send a script for her but there is a high level of concern for noncompliance. And not just with anxiety medication. She is very inconsistent with her story and admits to self medicating and skipping her cardiology zack. We dont know if she even had pcp and when her last zack was. Cardiology was consulted and we were diuresing her until she pulled her IV out as she did not think she needed it any longer. PT/OT was consulted and she did well. NO need for placement. # Acute on chronic systolic heart failure - LVEF improved to 61% -she was on IV diuretics (lasix) but pulled her IV out today -she can be discharged on oral Lasix 40 mg p.o. BID for 5 days per cardiology -continue carvedilol 3.125 mg every 12 hours, spironolactone 100 mg p.o. daily, and Jardiance 10 mg p.o. daily -overall it appears she is close to being euvolemic # Nonobstructive CAD -continue aspirin 81 mg p.o. daily # HTN -currently on spironolactone 100 mg p.o. 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 # hypothyroid TSh was elevated i discussed it with pt and she admitted that she was not taking meds as she supposed. she claims her meds were misplaced. So no adjustments today. She was instructed to start taking meds and have her PCP recheck level and adjust dose if needed. Status at Discharge Functional status at discharge: independent ambulation Overall status at discharge: patient is progressing back to baseline Time Spent with Patient Time attestation: Total time spent providing and/or coordinating discharge services: Time spent: Greater than 30 minutes Exam Narrative: pt is drowsy bit opens eyes and appropriate Const: General: comfortable Resp: Effort & Inspection: normal respiratory effort Cardio: Rate: regular rate Rhythm: regular rhythm GI: Auscultation: normal bowel sounds Psych: Affect: Anxious affect present DS: Data Data Completed and Pending Labs on day of discharge: Labs from last 24 hours 12/23/24 05:34 WBC 7.8 RBC 4.90 Hgb 12.0 Hct 38.8 MCV 79.2 L MCH 24.5 L MCHC 30.9 L RDW 18.9 H Plt Count 233 MPV 9.2 Sodium 134 L Potassium 3.5 Chloride 92 L Carbon Dioxide 34 H Anion Gap 8 BUN 15 Creatinine 0.89 Estim Creat Clear Calc 67 Estimated GFR > 60 Glucose 143 H Calcium 9.0 Preliminary micro results at discharge 12/20/24 01:32 Blood Culture - Preliminary Blood 12/20/24 01:33 Blood Culture - Preliminary Blood Discharge Plan Discharge Attending physician on discharge: Henri Aguilar Consulting providers: Oz Portillo Discharging Clinician: Sara Fuller Anticipated Discharge Date/Time: 12/23/24 15:36 Patient Disposition: Home, Self-Care Activity: may shower Diet: as tolerated and heart healthy Discharge Instructions: You were admitted for heart failure. WE consulted cardiology. They recommend that you can be discharged on oral Lasix 40 mg p.o. BID for 5 days. Please take medication as instructed. The dose for your spironolactone is quite heigh- please f/u with your PCP and cardiology for review. I will also order a repeat lab (BMP) to recheck in 2 weeks or so to ensure yuor kidneys are working well and your potassium level is ok. - continue carvedilol 3.125 mg every 12 hours, spironolactone 100 mg p.o. daily, and Jardiance 10 mg p.o. daily -continue aspirin 81 mg p.o. daily -continue atorvastatin 40 mg We started you on Buspar for your anxiety. Please take it but it is important that you follow up with PCP or psychiatrist for further management. Please continue to quit smoking. Your thyroid level was abnormal. As we discussed, since you were out of meds, it is important for you to start taking medication. TSH level needs to be rechecked as well in 6-8 weeks. I will send you scripts for medications you requested. Patient Instructions: Antibiotic Form, Heart Failure (DC), Safe Use of Anticoagulants (DC) Patient Language: Argentine Stand Alone Forms: General Discharge Information Follow-up/Referrals: Oz Portillo MD [Physician] - 2 Weeks [place],Murali Paul MD [Primary Care Provider] - 2 Weeks Discharge Medications: New furosemide 40 mg Tablet 40 mg PO BID 5 Days Qty: 10 0RF atorvastatin 40 mg Tablet 40 mg PO DAILY Qty: 90 0RF buspirone 5 mg Tablet 5 mg PO Q12HR Qty: 90 0RF Jardiance 10 mg Tablet 10 mg PO DAILY Qty: 90 0RF Continued gabapentin 100 mg capsule 100 mg PO Q12H levothyroxine [Synthroid] 175 mcg tablet 175 mcg PO DAILY Qty: 90 0RF aspirin [Adult Aspirin Regimen] 81 mg tablet,delayed release (DR/EC) 81 mg PO DAILY Qty: 90 0RF carvedilol 3.125 mg tablet 3.125 mg PO Q12H Qty: 90 0RF albuterol sulfate 90 mcg/actuation HFA aerosol inhaler 2 puff INHALATION QID PRN (Reason: sob) Qty: 1 0RF Discontinued bumetanide 2 mg tablet 2 mg PO DAILY No Action spironolactone 100 mg tablet 100 mg PO DAILY Other Ambulatory Orders: Basic Metabolic Panel (Routine) Timeframe: 2 Weeks Location: Determined by Patient Ordered By: Sara Fuller Date of admission: 12/20/24 08:48 Primary Care Provider: David,Murali Paul Admitting Provider: Carol Stewart V. Attending physician on admission: Carol Stewart V. Condition: Stable Quality VTE Prophylaxis VTE prophylaxis: pharmacologic ordered
[2024-12-23] MEDS: FUROSEMIDE 40 MG TABLET PO (17:55)
--- NOTE | 2024-12-23 20:56 | PC.NURSE ---
Discharged patient to her home address with brother Rosendo per patient's wishes. Both brothers refusing to accept patient back in but patient demanded to be discharged to this location anyways. Patient discharged via cab to home address in [place]. Care management updated on patient's discharge. 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
== END 2024-12-23 20:30 | disposition home or self-care (01) | DRG 194 ==
LOC: ANHED 12-20 03:08 → ANH3MED 12-20 03:46
PROVIDERS: Nurse Practitioner; Admitting Provider Internal Medicine; Emergency Provider Physician Assistant; PCP Family Medicine; Visit Provider General Practice
DX: I11.0 Hypertensive heart disease with heart failure (principal); I50.33 Acute on chronic diastolic (congestive) heart failure; E03.9 Hypothyroidism, unspecified; E78.5 Hyperlipidemia, unspecified; F41.9 Anxiety disorder, unspecified; I25.10 Atherosclerotic heart disease of native coronary artery without angina pectoris; J44.9 Chronic obstructive pulmonary disease, unspecified; F17.210 Nicotine dependence, cigarettes, uncomplicated; E87.1 Hypo-osmolality and hyponatremia; Z91.148 Patient's other noncompliance with medication regimen for other reason
CPT/HCPCS: 36415; 36600; 70450; 71046; 80048; 80053; 80307; 81001; 82805; 83605; 83690; 83880; 84439; 84443; 84480; 84484; 85018; 85025; 85027; 85610; 85730; 87040; 93005; 96374; 96375; 99285; A9270; C8929; G0378; G0379; J1650; J1940; J2060; Q9957